=== PATIENT | male | born 1970 | race Caucasian/White ===

== ENCOUNTER 2016-07-09 14:33 | Observation (INO) | payer BC ==
[~2016-07-09] VITALS: Ht 175.3 cm; Wt 72.6 kg
[~2016-07-09 14:33] MED LIST: BUTA1CAP29 PO; ONDA4TAB10 SL
[2016-07-09 15:39] LABS: BASO % 1 % (0-3); EOS % 2 % (0-3); HEMOGLOBIN 15.7 g/dL (13.0-17.5); LYMPH # 0.6 x10^3/uL (1.0-4.8); LYMPH % 27 % (24-48); MEAN CORPUSCULAR HEMOGLOBIN 31 pg (25-35); MEAN CORPUSCULAR HGB CONC 34 g/dL (31-37); MEAN CORPUSCULAR VOLUME 90 fL (79-100); MONO % 8 % (0-9); NEUT % 62 % (31-73); PLATELET COUNT 56 x10^3/uL (140-400); RED CELL DISTRIBUTION WIDTH 14.3 % (11.5-14.5); WHITE BLOOD COUNT 2.3 x10^3/uL (4.0-11.0)
[2016-07-09] MEDS ORDERED: LORAZEPAM 2 MG/ML VIAL IV ONE (15:45)
--- NOTE | 2016-07-09 15:50 | EKG ---
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
[2016-07-09 15:52] LABS: INR 1.1 (0.8-1.1); PROTHROMBIN TIME PATIENT 13.7 SEC (11.7-14.0)
--- NOTE | 2016-07-09 15:52 | RAD ---
Indication: CVA and right-sided pain. Time of exam 1543 hours. No prior studies are available for comparison. FINDINGS: The heart size is normal. The lungs are clear. No pleural effusion or pneumothorax is identified. The pulmonary vascularity is normal. IMPRESSION: No acute abnormality detected.
[2016-07-09 15:53] LABS: CALCIUM 9.4 mg/dL (8.5-10.1); CREATININE 0.8 mg/dL (0.7-1.3); GFR 103.6; POTASSIUM 4.2 mmol/L (3.5-5.1)
--- NOTE | 2016-07-09 16:16 | PHYS DOC ---
Past Medical History Past Medical History: Diabetes-Type II, Other Additional Past Medical Histor: SEASONAL ALLERGIES Past Surgical History: Appendectomy, Other Additional Past Surgical Histo: knee arthroscopy Alcohol Use: Heavy Drug Use: None Adult General Chief Complaint Chief Complaint: WEAKNESS/GENERALIZED HPI HPI Patient is a 46 year old male with history of type 2 diabetes on oral medications presents complaining of acute onset tingling/paresthesias with diminished sensation in the right arm and leg as well as perceived right arm and leg weakness. The symptoms started "sometime mid morning, probably after 9 AM". He cannot pinpoint the exact onset. No prior history of strokes. He does not smoke, drinks alcohol only occasionally. He denies illicit drug use. He denies chest pain, palpitations, dizziness/lightheadedness, visual disturbances, speech disturbance, nausea, vomiting, abdominal pain, diarrhea, bloody stools, urinary symptoms. He has no other acute complaints. Review of Systems Review of Systems Constitutional: Denies fever or chills Eyes: Denies change in visual acuity, redness, or eye pain HENT: Denies nasal congestion or sore throat Respiratory: Denies cough or shortness of breath Cardiovascular: Chest pain, palpitations, or lightheadedness/dizziness. GI: Denies abdominal pain, nausea, vomiting, bloody stools or diarrhea : Denies dysuria or hematuria Musculoskeletal: Denies back pain or joint pain Integument: Denies rash or skin lesions Neurologic: Denies headache. Reports motor weakness in the right arm and leg. Reports diminished sensation with paresthesias in the right arm and leg. Denies any speech difficulties or visual disturbances. Current Medications Current Medications Current Medications Medications (Trade) Dose Ordered Sig/Digna Start Time Stop Time Status Last Admin Dose Admin Al Hydroxide/Mg Hydroxide (Mylanta Plus Xs) 30 ml PRN Q3HRS PRN 07/09/16 17:45 UNV Bisacodyl (Dulcolax Supp) 10 mg PRN DAILY PRN 07/09/16 17:45 UNV Calcium Carbonate/ Glycine (Tums) 500 mg PRN Q3HRS PRN 07/09/16 17:45 UNV Dextrose 12.5 gm PRN Q15MIN PRN 07/09/16 17:45 UNV Gabapentin (Neurontin) 100 mg TID 07/09/16 21:00 UNV Insulin Aspart (Novolog) 0-9 UNITS TIDWMEALS 07/10/16 08:00 UNV Insulin Human Regular (Novolin R Vial) 10 unit 1X ONCE 07/09/16 16:30 07/09/16 16:31 DC 07/09/16 16:32 10 UNIT Lactulose 20 gm PRN Q12HR PRN 07/09/16 17:45 UNV Lorazepam (Ativan) 1 mg 1X ONCE 07/09/16 15:45 07/09/16 15:46 DC 07/09/16 16:00 1 MG Magnesium Hydroxide (Milk Of Magnesia) 2,400 mg PRN Q12HR PRN 07/09/16 17:45 UNV Morphine Sulfate 1 mg PRN Q1HR PRN 07/09/16 17:45 UNV Non-Formulary Medication 1 each Q6HRS PRN 07/09/16 17:45 UNV Ondansetron HCl (Zofran Odt) 4 mg Q8HRS PRN 07/09/16 17:45 UNV Ondansetron HCl (Zofran) 4 mg PRN Q6HRS PRN 07/09/16 17:45 UNV Oxycodone HCl (Roxicodone) 5 mg PRN Q3HRS PRN 07/09/16 17:45 UNV Prochlorperazine Edisylate (Compazine) 10 mg PRN Q6HRS PRN 07/09/16 17:45 UNV Zolpidem Tartrate (Ambien) 5 mg PRN QHS PRN 07/09/16 17:45 UNV Allergies Allergies Allergies Coded Allergies Type Severity Reaction Last Updated Verified prochlorperazine Allergy Intermediate 01/24/16 Yes Physical Exam Physical Exam Constitutional: Well developed, well nourished, no acute distress, non-toxic appearance. HENT: Normocephalic, atraumatic, bilateral external ears normal, oropharynx moist, no oral exudates, nose normal. Eyes: PERRLA, EOMI, conjunctiva normal, no discharge. Neck: Normal range of motion, no tenderness, supple, no stridor. Cardiovascular:Heart rate regular rhythm, no murmur Lungs & Thorax: Bilateral breath sounds clear to auscultation Abdomen: Bowel sounds normal, soft, no tenderness, no masses, no pulsatile masses. Skin: Warm, dry, no erythema, no rash. Back: No tenderness, no CVA tenderness. Extremities: No tenderness, no cyanosis, no clubbing, ROM intact, no edema. Neurologic: Alert and oriented X 3, normal motor function. Only diminished sensation to light touch in the right lower leg. Normal sensation in bilateral upper extremities. Normal sensation left lower extremity. No limb ataxia. No facial droop or speech disturbances. Psychologic: Affect normal, judgement normal, mood normal. Current Patient Data Vital Signs Vital Signs Date Time Temp Pulse Resp B/P Pulse Ox O2 Delivery O2 Flow Rate FiO2 07/09/16 14:52 98.3 83 17 163/100 97 Room Air 98.3 Lab Values Laboratory Tests Test 07/09/16 14:42 07/09/16 16:10 White Blood Count 2.3x10^3/uL (4.0-11.0) L Red Blood Count 5.10x10^6/uL (4.30-5.70) Hemoglobin 15.7g/dL (13.0-17.5) Hematocrit 46.0% (39.0-53.0) Mean Corpuscular Volume 90fL (79-100) Mean Corpuscular Hemoglobin 31pg (25-35) Mean Corpuscular Hemoglobin Concent 34g/dL (31-37) Red Cell Distribution Width 14.3% (11.5-14.5) Platelet Count 56x10^3/uL (140-400) L Neutrophils (%) (Auto) 62% (31-73) Lymphocytes (%) (Auto) 27% (24-48) Monocytes (%) (Auto) 8% (0-9) Eosinophils (%) (Auto) 2% (0-3) Basophils (%) (Auto) 1% (0-3) Neutrophils # (Auto) 1.4x10^3uL (1.8-7.7) L Lymphocytes # (Auto) 0.6x10^3/uL (1.0-4.8) L Monocytes # (Auto) 0.2x10^3/uL (0.0-1.1) Eosinophils # (Auto) 0.0x10^3/uL (0.0-0.7) Basophils # (Auto) 0.0x10^3/uL (0.0-0.2) Prothrombin Time 13.7SEC (11.7-14.0) Prothrombin Time INR 1.1 (0.8-1.1) Sodium Level 133mmol/L (136-145) L Potassium Level 4.2mmol/L (3.5-5.1) Chloride Level 97mmol/L (98-107) L Carbon Dioxide Level 27mmol/L (21-32) Anion Gap 9 (6-14) Blood Urea Nitrogen 8mg/dL (8-26) Creatinine 0.8mg/dL (0.7-1.3) Estimated GFR (Cockcroft-Gault) 103.6 Glucose Level 414mg/dL (70-99) H Calcium Level 9.4mg/dL (8.5-10.1) Troponin I Quantitative < 0.017ng/mL (0.000-0.055) Ethyl Alcohol Level < 10mg/dL (0-10) Urine Opiates Screen Neg (NEG) Urine Methadone Screen Neg (NEG) Urine Barbiturates Neg (NEG) Urine Phencyclidine Screen Neg (NEG) Urine Amphetamine/Methamphetamine Neg (NEG) Urine Benzodiazepines Screen Neg (NEG) Urine Cocaine Screen Neg (NEG) Urine Cannabinoids Screen Neg (NEG) Urine Ethyl Alcohol Neg (NEG) Laboratory Tests 07/09/16 14:42 Laboratory Tests 07/09/16 14:42 EKG EKG EKG: Sinus rhythm. Rate 77 bpm. Left axis deviation. No acute ST segment elevation or depression. No obvious acute ST segment changes. EKG interpreted by me. Radiology/Procedures Radiology/Procedures PATIENT: ANYI BEST ACCOUNT: [id number] : 1970 LOCATION: ER AGE: 46 SEX: M EXAM STATUS: PRE ER ORD. PHYSICIAN: YVETTE LAGOS MD REASON: stroke symptoms PROCEDURE: CHEST AP ONLY Indication: CVA and right-sided pain. Time of exam 1543 hours. No prior studies are available for comparison. FINDINGS: The heart size is normal. The lungs are clear. No pleural effusion or pneumothorax is identified. The pulmonary vascularity is normal. IMPRESSION: No acute abnormality detected. DICTATED and SIGNED BY: TALI DAVIS MD DATE: 07/09/16 0467 CC: NON,STAFF; YVETTE LAGOS MD ~ PATIENT: ANYI BEST ACCOUNT: [id number] : 1970 LOCATION: ER AGE: 46 SEX: M EXAM STATUS: PRE ER ORD. PHYSICIAN: YVETTE LAGOS MD REASON: motor weakness, numbness PROCEDURE: HEAD WO CONTRAST CT of the head without contrast, 07/09/2016: History: Weakness and numbness Comparison is made to a study from 01/24/2016. The ventricles are within normal limits in size. There is no shift of the midline structures. There is no evidence of acute intracranial hemorrhage or mass effect. The cerebellum is asymmetric as previously noted. 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 An old left cerebellar infarct is also a possibility. The findings are unchanged. IMPRESSION: 1. Chronic cerebellar asymmetry. 2. No acute intracranial abnormality is detected. DICTATED and SIGNED BY: ABRAHAM BAPTISTE MD DATE: 07/09/16 1618 CC: NON,STAFF; YVETTE LAGOS MD ~ Course & Med Decision Making Course & Med Decision Making Pertinent Labs and Imaging studies reviewed. (See chart for details) Other than some mild diminished sensation in the right lower leg, I cannot appreciate any motor deficits or sensory deficits in this patient. He reports feeling in his right arm and leg are weaker than the left, however. NIH stroke scale is 1. CT head is negative, labs are unremarkable, EKG is nonischemic and unremarkable. Ativan was given for anxiety. Sugars are elevated, so 10 units of IV regular insulin were given. Patient is 46 years old and appears to have uncontrolled diabetes and is reporting strokelike symptoms. I decided to admit this patient for observation. I discussed this case with Dr. Limon who agreed to admit the patient for observation and further management. Dragon Disclaimer Dragon Disclaimer This electronic medical record was generated, in whole or in part, using a voice recognition dictation system. Departure Departure Impression: Primary Impression: Weakness of extremity Additional Impression: Paresthesias Disposition: 09 ADMITTED INPATIENT Admitting Physician: Yessenia Limon Condition: STABLE Referrals: NON,STAFF (PCP) Problem Qualifiers YVETTE LAGOS MD Jul 09, 2016 15:40
--- NOTE | 2016-07-09 16:23 | RAD ---
CT of the head without contrast, 07/09/2016: History: Weakness and numbness Comparison is made to a study from 01/24/2016. The ventricles are within normal limits in size. There is no shift of the midline structures. There is no evidence of acute intracranial hemorrhage or mass effect. The cerebellum is asymmetric as previously noted. 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 An old left cerebellar infarct is also a possibility. The findings are unchanged. IMPRESSION: 1. Chronic cerebellar asymmetry. 2. No acute intracranial abnormality is detected.
[2016-07-09] MEDS ORDERED: INSULIN REGULAR 100 UNIT/ML 10ML VIAL. IV ONE (16:30)
[2016-07-09 17:03] LABS: BARBITURATES NEG (NEG); BENZODIAZEPINES NEG (NEG); CANNABINOIDS NEG (NEG); COCAINE NEG (NEG); METHADONE NEG (NEG); OPIATES NEG (NEG); PHENCYCLIDINE NEG (NEG)
[2016-07-09 17:05] LABS: ETHANOL, URINE NEG (NEG)
[2016-07-09] MEDS ORDERED: PROCHLORPERAZINE 10 MG/2 ML VIAL. IV PRN (17:45)
[2016-07-09] MEDS ORDERED: CALCIUM CARBONATE 500 MG TAB.CHEW PO PRN (17:45)
[2016-07-09] MEDS ORDERED: OXYCODONE IR 5 MG TABLET. PO PRN (17:45)
[2016-07-09] MEDS ORDERED: ONDANSETRON PF 4 MG/2 ML VIAL. IV PRN (17:45)
[2016-07-09] MEDS ORDERED: ZOLPIDEM 5 MG TABLET. PO PRN (17:45)
[2016-07-09] MEDS ORDERED: ONDANSETRON ODT 4 MG TAB.RAPDIS PO PRN (17:45)
[2016-07-09] MEDS ORDERED: MAGNESIUM HYDROXIDE 2,400 MG/30 ML ORAL.SUSP. PO PRN (17:45)
[2016-07-09] MEDS ORDERED: LACTULOSE 20 GM/30 ML SOLUTION. PO PRN (17:45)
[2016-07-09] MEDS ORDERED: DEXTROSE 50% 25 GM / 50ML DISP.SYRIN. IV PRN (17:45)
[2016-07-09] MEDS ORDERED: MORPHINE SULFATE 2 MG/ML DISP.SYRIN. IV PRN (17:45)
[2016-07-09] MEDS ORDERED: BISACODYL 10 MG SUPP.RECT PR PRN (17:45)
[2016-07-09] MEDS ORDERED: MAG HYDROX/ALUMINUM HYDROX/SMC 30 ML ORAL.SUSP PO PRN (17:45)
--- NOTE | 2016-07-09 17:54 | PDOC1 ---
History and Physical Date of Admission Date of Admission DATE: 07/09/16 TIME: 17:47 Identification/Chief Complaint Chief Complaint R arm weakness and numbness Source Source: Chart review, Patient History of Present Illness History of Present Illness 46 y.o male, rather odd/bizarre personality/behavior, comes in bec of above sx, this AM 9 AM, claims sensation deficit R UE and R UE weakness, NO other FNDs, LAbs ok,. PE ok, maybe subjective dec in strength UE,. BUt BS over 400s, at ER, on OHA at home but cant tell me names, doubt compliance. Admitted oBS for mRI brain and better BS control,. Unknown hgba1c, HArd to keep pt focused on acute issues, PCP is unassigned, Rest of HPI limited sec to the above (personality and refocusing issues), Past Medical History Endocrine: Diabetes Past Surgical History Past Surgical History: Appendectomy Family History Family History: No Significant Social History Smoke: No ALCOHOL: occassional Drugs: None Current Problem List Problem List Problems Medical Problems: (1) Paresthesias Status: Acute (2) Right arm numbness Status: Acute Problems: Current Medications Current Medications Current Medications Lorazepam (Ativan) 1 mg 1X ONCE IV Last administered on 07/09/16 16:00; Start 07/09/16 at 15:45; Stop 07/09/16 at 15:46; Status DC Insulin Human Regular (Novolin R Vial) 10 unit 1X ONCE IV Last administered on 07/09/16 16:32; Start 07/09/16 at 16:30; Stop 07/09/16 at 16:31; Status DC Active Scripts Active Zofran Odt (Ondansetron) 4 Mg Tab.rapdis 1 Tab SL Q8HRS Fioricet 50-300-40 Mg Capsule (Butalb/Acetaminophen/Caffeine) 1 Each Capsule 1 Each PO Q6HRS PRN Allergies Allergies: Coded Allergies: prochlorperazine (Verified Allergy, Intermediate, 01/24/16) ROS General: No: Appetite, Chills, Fatigue, Malaise, Night Sweats, Other PSYCHOLOGICAL ROS: No: Anxiety, Behavioral Disorder, Concentration difficultie , Decreased libido, Depression, Disorientation, Hallucinations, Hostility, Irritablity, Memory difficulties, Mood Swings, Obsessive thoughts, Other, Physical abuse, Sexual abuse, Sleep disturbances, Suicidal ideation Eyes: No Blurry vision, No Decreased vision, No Double vision, No Dry eyes, No Excessive tearing, No Eye Pain, No Itchy Eyes, No Loss of vision, No Other, No Photophobia, No Scotomata, No Uses contacts, No Uses glasses HEENT: No: Epistaxis, Heacaches, Hearing change, Nasal congestion, Nasal discharge, Oral lesions, Other, Sinus pain, Sneezing, Snoring, Sore Throat, Tinnitus, Vertigo, Visual Changes, Vocal changes ALLERGY AND IMMUNOLOGY: No: Hives, Insect Bite Sensitivity, Itchy/Watery Eyes, Nasal Congestion, Other, Post Nasal Drip, Seasonal Allergies Hematological and Lymphatic: No: Bleeding Problems, Blood Clots, Blood Transfusions, Brusing, Night Sweats, Other, Pallor, Swollen Lymph Nodes ENDOCRINE: No: Breast Changes, Galactorrhea, Hair Pattern Changes, Hot Flashes , Malaise/lethargy, Mood Swings, Other, Palpitations, Polydipsia/polyuria, Skin Changes, Temperature Intolerance, Unexpected Weight Changes Breast: No New/Changing Breast Lumps, No Nipple changes, No Nipple discharge, No Other Respiratory: No: Cough, Hemoptysis, Orthopnea, Other, Pleuritic Pain, SOB with excertion, Shortness of breath, Sputum Changes, Stridor, Tachypnea, Wheezing Cardiovascular: No Chest Pain, No Edema, No Lt Headedness, No Orthopnea, No Other, No Palpitations, No Paroxysmal Noc. Dyspnea Gastrointestinal: No Abdominal Pain, No Constipation, No Diarrhea, No Hematochezia, No Melena, No Nausea, No Other, No Vomiting Genitourinary: No , No , No , No , No , No , No , No Discharge, No Dysuria, No Flank Pain, No Frequency, No Hematuria, No Incontinence, No Other, No Pain, No Retention, No Urgency Musculoskeletal: Yes Other (as per HPI) Neurological: No Behavorial Changes, No Bowel/Bladder ControlChng, No Confusion , No Dizziness, No Gait Disturbance, No Headaches, No Impaired Coord/balance, No Memory Loss, No Numbness/Tingling, No Other, No Seizures, No Speech Problems , No Tremors, No Visual Changes, No Weakness Skin: No Acne, No Dry Skin, No Eczema, No Hair Changes, No Lumps, No Mole Changes, No Mottling, No Nail Changes, No Other, No Pruritus, No Rash, No Skin Lesion Changes Physical Exam General: Alert, Oriented X3, Cooperative, No acute distress HEENT: Atraumatic, PERRLA, EOMI Lungs: Clear to auscultation, Normal air movement Heart: S1S2, RRR, no thrills, no rubs Cardiovascular: S1 Breasts: Normal Abdomen: Normal bowel sounds Male Genitals Exam: normal genitalia, normal prostate Extremities: No clubbing, No cyanosis, No edema, Normal pulses, No tenderness/ swelling Skin: No rashes, No breakdown, No significant lesion Neuro: Normal gait Psych/Mental Status: Mental status NL Vitals Vitals Vital Signs Date Time Temp Pulse Resp B/P Pulse Ox O2 Delivery O2 Flow Rate FiO2 07/09/16 14:52 98.3 83 17 163/100 97 Room Air 98.3 Labs Labs Laboratory Tests Test 07/09/16 14:42 07/09/16 16:10 White Blood Count 2.3x10^3/uL (4.0-11.0) Red Blood Count 5.10x10^6/uL (4.30-5.70) Hemoglobin 15.7g/dL (13.0-17.5) Hematocrit 46.0% (39.0-53.0) Mean Corpuscular Volume 90fL (79-100) Mean Corpuscular Hemoglobin 31pg (25-35) Mean Corpuscular Hemoglobin Concent 34g/dL (31-37) Red Cell Distribution Width 14.3% (11.5-14.5) Platelet Count 56x10^3/uL (140-400) Neutrophils (%) (Auto) 62% (31-73) Lymphocytes (%) (Auto) 27% (24-48) Monocytes (%) (Auto) 8% (0-9) Eosinophils (%) (Auto) 2% (0-3) Basophils (%) (Auto) 1% (0-3) Neutrophils # (Auto) 1.4x10^3uL (1.8-7.7) Lymphocytes # (Auto) 0.6x10^3/uL (1.0-4.8) Monocytes # (Auto) 0.2x10^3/uL (0.0-1.1) Eosinophils # (Auto) 0.0x10^3/uL (0.0-0.7) Basophils # (Auto) 0.0x10^3/uL (0.0-0.2) Prothrombin Time 13.7SEC (11.7-14.0) Prothromb Time International Ratio 1.1 (0.8-1.1) Sodium Level 133mmol/L (136-145) Potassium Level 4.2mmol/L (3.5-5.1) Chloride Level 97mmol/L (98-107) Carbon Dioxide Level 27mmol/L (21-32) Anion Gap 9 (6-14) Blood Urea Nitrogen 8mg/dL (8-26) Creatinine 0.8mg/dL (0.7-1.3) Estimated GFR (Cockcroft-Gault) 103.6 Glucose Level 414mg/dL (70-99) Calcium Level 9.4mg/dL (8.5-10.1) Troponin I Quantitative < 0.017ng/mL (0.000-0.055) Ethyl Alcohol Level < 10mg/dL (0-10) Urine Opiates Screen Neg (NEG) Urine Methadone Screen Neg (NEG) Urine Barbiturates Neg (NEG) Urine Phencyclidine Screen Neg (NEG) Urine Amphetamine/Methamphetamine Neg (NEG) Urine Benzodiazepines Screen Neg (NEG) Urine Cocaine Screen Neg (NEG) Urine Cannabinoids Screen Neg (NEG) Urine Ethyl Alcohol Neg (NEG) Laboratory Tests Test 07/09/16 14:42 07/09/16 16:10 White Blood Count 2.3x10^3/uL (4.0-11.0) Red Blood Count 5.10x10^6/uL (4.30-5.70) Hemoglobin 15.7g/dL (13.0-17.5) Hematocrit 46.0% (39.0-53.0) Mean Corpuscular Volume 90fL (79-100) Mean Corpuscular Hemoglobin 31pg (25-35) Mean Corpuscular Hemoglobin Concent 34g/dL (31-37) Red Cell Distribution Width 14.3% (11.5-14.5) Platelet Count 56x10^3/uL (140-400) Neutrophils (%) (Auto) 62% (31-73) Lymphocytes (%) (Auto) 27% (24-48) Monocytes (%) (Auto) 8% (0-9) Eosinophils (%) (Auto) 2% (0-3) Basophils (%) (Auto) 1% (0-3) Neutrophils # (Auto) 1.4x10^3uL (1.8-7.7) Lymphocytes # (Auto) 0.6x10^3/uL (1.0-4.8) Monocytes # (Auto) 0.2x10^3/uL (0.0-1.1) Eosinophils # (Auto) 0.0x10^3/uL (0.0-0.7) Basophils # (Auto) 0.0x10^3/uL (0.0-0.2) Prothrombin Time 13.7SEC (11.7-14.0) Prothromb Time International Ratio 1.1 (0.8-1.1) Sodium Level 133mmol/L (136-145) Potassium Level 4.2mmol/L (3.5-5.1) Chloride Level 97mmol/L (98-107) Carbon Dioxide Level 27mmol/L (21-32) Anion Gap 9 (6-14) Blood Urea Nitrogen 8mg/dL (8-26) Creatinine 0.8mg/dL (0.7-1.3) Estimated GFR (Cockcroft-Gault) 103.6 Glucose Level 414mg/dL (70-99) Calcium Level 9.4mg/dL (8.5-10.1) Troponin I Quantitative < 0.017ng/mL (0.000-0.055) Ethyl Alcohol Level < 10mg/dL (0-10) Urine Opiates Screen Neg (NEG) Urine Methadone Screen Neg (NEG) Urine Barbiturates Neg (NEG) Urine Phencyclidine Screen Neg (NEG) Urine Amphetamine/Methamphetamine Neg (NEG) Urine Benzodiazepines Screen Neg (NEG) Urine Cocaine Screen Neg (NEG) Urine Cannabinoids Screen Neg (NEG) Urine Ethyl Alcohol Neg (NEG) VTE Prophylaxis Ordered VTE Prophylaxis Devices: Yes VTE Pharmacological Prophylaxi: Yes Assessment/Plan Assessment/Plan 1. R UE weakness? and sensory complaints, initially complained of R LE issues too, HIGHLY DOUBT cva but still need to rule ou 2. 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 DM uncontrolled with possible neuropathy 4. Seasonal allergies I think if at all this maybe neuropathy in a diabteic for "couple yrs" that is uncontrolled as manifested by BS 400s at ER and inability to relay names of his OHA that he claims he takes, PLAn: OBS MRI brain HOLD off on any neuro consults Trial of gabapentin Check hgba1c SSI Resume home meds IF mRI neg, home junior with gabapentin rx Novolog x 1 now for the BS >400s Seen at ER Plan of care dw him BREEZY HALL MD Jul 09, 2016 17:54
[2016-07-09 19:45] VITALS: BP 149/101
--- NOTE | 2016-07-09 19:59 | RAD ---
PROCEDURE MRI of the brain without contrast 07/09/2016 HISTORY Right-sided weakness, numbness and tingling since 9 a.m. today. TECHNIQUE Unenhanced T1 weighted sagittal and axial, T2 weighted axial and coronal and FLAIR, gradient echo and diffusion weighted axial images of the brain were obtained. FINDINGS Comparison study is dated 07/09/2016. Atrophy of the left cerebellar hemisphere is noted. The ventricles are within normal limits in size and configuration. No acute parenchymal abnormality is seen. No extra-axial fluid collection is noted. There is no MRI evidence of acute ischemia/infarction. Mild mucosal thickening is seen involving the ethmoid air cells bilaterally and the left frontal sinus. Normal flow voids are seen within the major vascular structures surrounding the brain parenchyma. IMPRESSION No acute parenchymal abnormality is seen. Electronically signed by: Andrea Márquez MD (Jul 09, 2016 19:58:24)
[2016-07-09] MEDS ORDERED: BUTALB/APAP/CAFEIN 50/325/40MG TABLET. PO PRN (20:15)
[2016-07-09] MEDS: GABAPENTIN 100 MG CAPSULE. PO SCH (21:52)
[2016-07-09 23:00] VITALS: BP 155/103
[2016-07-10 03:00] VITALS: BP 119/82
[2016-07-10 07:10] VITALS: BP 107/70
[2016-07-10] MEDS ORDERED: SITA50TA PO (07:34)
[2016-07-10] MEDS: GABAPENTIN 100 MG CAPSULE. PO SCH ×2 (08:32→14:06)
[2016-07-10] MEDS: INSULIN ASPART 300 UNITS/3 ML INSULN.PEN SQ SCH ×3 (08:38→17:43)
[2016-07-10] MEDS ORDERED: INFLUENZA VAX SCREEN BY RX. MC ONE (09:00)
[2016-07-10] MEDS ORDERED: PNEUMOC CONJ VACC 23-VALENT 0.5 ML VIAL. VAX IM ONE (09:00)
[2016-07-10] MEDS ORDERED: PNEUMOCOCCAL VAX SCREEN BY RX. MC ONE (09:00)
[2016-07-10] MEDS ORDERED: FLU VACC QUAD 2016-17 (36MOS+)/PF 0.5 ML SYRINGE. VAX IM ONE (09:00)
--- NOTE | 2016-07-10 10:25 | PDOC ---
PROGRESS NOTES Chief Complaint Chief Complaint A/P 1. R UE AND LE numbness, possible diabetic nuropathy 2. Uncontrolled DM HBA1C >10 Plan neurology evaluation Gabapentin SSI resume home medications pt doesn't like to be on insulin, education provided, PT/OT History of Present Illness History of Present Illness NO WEAKNESS NO FEVER Vitals Vitals Vital Signs Date Time Temp Pulse Resp B/P Pulse Ox O2 Delivery O2 Flow Rate FiO2 07/10/16 07:10 97.7 62 17 107/70 96 Room Air 97.7 Physical Exam General: Alert, Oriented X3, Cooperative, No acute distress Heart: Normal S1, Normal S2 Lungs: Clear Abdomen: Normal bowel sounds Extremities: No clubbing, No cyanosis, No edema, Normal pulses, No tenderness/ swelling Skin: No rashes, No breakdown, No significant lesion Labs LABS Laboratory Tests Test 07/09/16 14:42 07/09/16 16:10 07/09/16 20:55 07/10/16 07:29 White Blood Count 2.3x10^3/uL (4.0-11.0) Red Blood Count 5.10x10^6/uL (4.30-5.70) Hemoglobin 15.7g/dL (13.0-17.5) Hematocrit 46.0% (39.0-53.0) Mean Corpuscular Volume 90fL (79-100) Mean Corpuscular Hemoglobin 31pg (25-35) Mean Corpuscular Hemoglobin Concent 34g/dL (31-37) Red Cell Distribution Width 14.3% (11.5-14.5) Platelet Count 56x10^3/uL (140-400) Neutrophils (%) (Auto) 62% (31-73) Lymphocytes (%) (Auto) 27% (24-48) Monocytes (%) (Auto) 8% (0-9) Eosinophils (%) (Auto) 2% (0-3) Basophils (%) (Auto) 1% (0-3) Neutrophils # (Auto) 1.4x10^3uL (1.8-7.7) Lymphocytes # (Auto) 0.6x10^3/uL (1.0-4.8) Monocytes # (Auto) 0.2x10^3/uL (0.0-1.1) Eosinophils # (Auto) 0.0x10^3/uL (0.0-0.7) Basophils # (Auto) 0.0x10^3/uL (0.0-0.2) Prothrombin Time 13.7SEC (11.7-14.0) Prothromb Time International Ratio 1.1 (0.8-1.1) Sodium Level 133mmol/L (136-145) Potassium Level 4.2mmol/L (3.5-5.1) Chloride Level 97mmol/L (98-107) Carbon Dioxide Level 27mmol/L (21-32) Anion Gap 9 (6-14) Blood Urea Nitrogen 8mg/dL (8-26) Creatinine 0.8mg/dL (0.7-1.3) Estimated GFR (Cockcroft-Gault) 103.6 Glucose Level 414mg/dL (70-99) Hemoglobin A1c 10.3% (4.8-5.6) Calcium Level 9.4mg/dL (8.5-10.1) Troponin I Quantitative < 0.017ng/mL (0.000-0.055) Ethyl Alcohol Level < 10mg/dL (0-10) Urine Opiates Screen Neg (NEG) Urine Methadone Screen Neg (NEG) Urine Barbiturates Neg (NEG) Urine Phencyclidine Screen Neg (NEG) Urine Amphetamine/Methamphetamine Neg (NEG) Urine Benzodiazepines Screen Neg (NEG) Urine Cocaine Screen Neg (NEG) Urine Cannabinoids Screen Neg (NEG) Urine Ethyl Alcohol Neg (NEG) Glucose (Fingerstick) 212mg/dL (70-99) 237mg/dL (70-99) Assessment and Plan Assessmemt and Plan Problems Medical Problems: (1) Paresthesias Status: Acute (2) Right arm numbness Status: Acute (3) Weakness of extremity Status: Acute Problems: Comment Review of Relevant I have reviewed the following items ana (where applicable) has been applied. Labs Laboratory Tests Test 07/09/16 14:42 07/09/16 16:10 07/09/16 20:55 07/10/16 07:29 White Blood Count 2.3x10^3/uL (4.0-11.0) Red Blood Count 5.10x10^6/uL (4.30-5.70) Hemoglobin 15.7g/dL (13.0-17.5) Hematocrit 46.0% (39.0-53.0) Mean Corpuscular Volume 90fL (79-100) Mean Corpuscular Hemoglobin 31pg (25-35) Mean Corpuscular Hemoglobin Concent 34g/dL (31-37) Red Cell Distribution Width 14.3% (11.5-14.5) Platelet Count 56x10^3/uL (140-400) Neutrophils (%) (Auto) 62% (31-73) Lymphocytes (%) (Auto) 27% (24-48) Monocytes (%) (Auto) 8% (0-9) Eosinophils (%) (Auto) 2% (0-3) Basophils (%) (Auto) 1% (0-3) Neutrophils # (Auto) 1.4x10^3uL (1.8-7.7) Lymphocytes # (Auto) 0.6x10^3/uL (1.0-4.8) Monocytes # (Auto) 0.2x10^3/uL (0.0-1.1) Eosinophils # (Auto) 0.0x10^3/uL (0.0-0.7) Basophils # (Auto) 0.0x10^3/uL (0.0-0.2) Prothrombin Time 13.7SEC (11.7-14.0) Prothromb Time International Ratio 1.1 (0.8-1.1) Sodium Level 133mmol/L (136-145) Potassium Level 4.2mmol/L (3.5-5.1) Chloride Level 97mmol/L (98-107) Carbon Dioxide Level 27mmol/L (21-32) Anion Gap 9 (6-14) Blood Urea Nitrogen 8mg/dL (8-26) Creatinine 0.8mg/dL (0.7-1.3) Estimated GFR (Cockcroft-Gault) 103.6 Glucose Level 414mg/dL (70-99) Hemoglobin A1c 10.3% (4.8-5.6) Calcium Level 9.4mg/dL (8.5-10.1) Troponin I Quantitative < 0.017ng/mL (0.000-0.055) Ethyl Alcohol Level < 10mg/dL (0-10) Urine Opiates Screen Neg (NEG) Urine Methadone Screen Neg (NEG) Urine Barbiturates Neg (NEG) Urine Phencyclidine Screen Neg (NEG) Urine Amphetamine/Methamphetamine Neg (NEG) Urine Benzodiazepines Screen Neg (NEG) Urine Cocaine Screen Neg (NEG) Urine Cannabinoids Screen Neg (NEG) Urine Ethyl Alcohol Neg (NEG) Glucose (Fingerstick) 212mg/dL (70-99) 237mg/dL (70-99) Laboratory Tests Test 07/09/16 14:42 07/09/16 16:10 07/09/16 20:55 07/10/16 07:29 White Blood Count 2.3x10^3/uL (4.0-11.0) Red Blood Count 5.10x10^6/uL (4.30-5.70) Hemoglobin 15.7g/dL (13.0-17.5) Hematocrit 46.0% (39.0-53.0) Mean Corpuscular Volume 90fL (79-100) Mean Corpuscular Hemoglobin 31pg (25-35) Mean Corpuscular Hemoglobin Concent 34g/dL (31-37) Red Cell Distribution Width 14.3% (11.5-14.5) Platelet Count 56x10^3/uL (140-400) Neutrophils (%) (Auto) 62% (31-73) Lymphocytes (%) (Auto) 27% (24-48) Monocytes (%) (Auto) 8% (0-9) Eosinophils (%) (Auto) 2% (0-3) Basophils (%) (Auto) 1% (0-3) Neutrophils # (Auto) 1.4x10^3uL (1.8-7.7) Lymphocytes # (Auto) 0.6x10^3/uL (1.0-4.8) Monocytes # (Auto) 0.2x10^3/uL (0.0-1.1) Eosinophils # (Auto) 0.0x10^3/uL (0.0-0.7) Basophils # (Auto) 0.0x10^3/uL (0.0-0.2) Prothrombin Time 13.7SEC (11.7-14.0) Prothromb Time International Ratio 1.1 (0.8-1.1) Sodium Level 133mmol/L (136-145) Potassium Level 4.2mmol/L (3.5-5.1) Chloride Level 97mmol/L (98-107) Carbon Dioxide Level 27mmol/L (21-32) Anion Gap 9 (6-14) Blood Urea Nitrogen 8mg/dL (8-26) Creatinine 0.8mg/dL (0.7-1.3) Estimated GFR (Cockcroft-Gault) 103.6 Glucose Level 414mg/dL (70-99) Hemoglobin A1c 10.3% (4.8-5.6) Calcium Level 9.4mg/dL (8.5-10.1) Troponin I Quantitative < 0.017ng/mL (0.000-0.055) Ethyl Alcohol Level < 10mg/dL (0-10) Urine Opiates Screen Neg (NEG) Urine Methadone Screen Neg (NEG) Urine Barbiturates Neg (NEG) Urine Phencyclidine Screen Neg (NEG) Urine Amphetamine/Methamphetamine Neg (NEG) Urine Benzodiazepines Screen Neg (NEG) Urine Cocaine Screen Neg (NEG) Urine Cannabinoids Screen Neg (NEG) Urine Ethyl Alcohol Neg (NEG) Glucose (Fingerstick) 212mg/dL (70-99) 237mg/dL (70-99) Medications Current Medications Lorazepam (Ativan) 1 mg 1X ONCE IV Last administered on 07/09/16 16:00; Start 07/09/16 at 15:45; Stop 07/09/16 at 15:46; Status DC Insulin Human Regular (Novolin R Vial) 10 unit 1X ONCE IV Last administered on 07/09/16 16:32; Start 07/09/16 at 16:30; Stop 07/09/16 at 16:31; Status DC Ondansetron HCl (Zofran Odt) 4 mg PRN Q8HRS PRN PO NAUSEA/VOMITING; Start 07/09 at 17:45 Acetaminophen/ Butalbital/ Caffeine (Fioricet) 1 tab PRN Q6HRS PRN PO MIGRAINE HEADACHE; Start 07/09/16 at 20:15 Ondansetron HCl (Zofran) 4 mg PRN Q6HRS PRN IV NAUSEA/VOMITING; Start 07/09/16 at 17:45 Prochlorperazine Edisylate (Compazine) 10 mg PRN Q6HRS PRN IV NAUSEA/VOMITING; Start 07/09/16 at 17:45; Stop 07/09/16 at 19:12; Status DC Al Hydroxide/Mg Hydroxide (Mylanta Plus Xs) 30 ml PRN Q3HRS PRN PO HEARTBURN / GAS; Start 07/09/16 at 17:45 Calcium Carbonate/ Glycine (Tums) 500 mg PRN Q3HRS PRN PO UPSET STOMACH; Start 07/09/16 at 17:45 Zolpidem Tartrate (Ambien) 5 mg PRN QHS PRN PO INSOMNIA, MAY REPEAT IN 1HR; Start 07/09/16 at 17:45 Oxycodone HCl (Roxicodone) 5 mg PRN Q3HRS PRN PO BREAKTHROUGH PAIN; Start 07/09 at 17:45 Morphine Sulfate 1 mg PRN Q1HR PRN IV PAIN; Start 07/09/16 at 17:45 Magnesium Hydroxide (Milk Of Magnesia) 2,400 mg PRN Q12HR PRN PO CONSTIPATION; Start 07/09/16 at 17:45 Lactulose 20 gm PRN Q12HR PRN PO CONSTIPATION; Start 07/09/16 at 17:45 Bisacodyl (Dulcolax Supp) 10 mg PRN DAILY PRN [place] CONSTIPATION; Start 07/09/16 at 17:45 Gabapentin (Neurontin) 100 mg TID PO Last administered on 07/10/16 08:32; Start 07/09/16 at 21:00 Insulin Aspart (Novolog) 0-9 UNITS TIDWMEALS SQ Last administered on 07/10/16 08:38; Start 07/10/16 at 08:00 Dextrose 12.5 gm PRN Q15MIN PRN IV SEE COMMENTS; Start 07/09/16 at 17:45 Info (Do NOT chart on this placeholder) 1 each 1X ONCE MC ; Start 07/10/16 at 09:00; Stop 07/10/16 at 09:01; Status UNV Pneumococcal Polyvalent Vaccine (Do NOT chart on this placeholder) 1 each 1X ONCE MC ; Start 07/10/16 at 09:00; Stop 07/10/16 at 09:01; Status UNV Influenza Virus Vaccine Quadrival (Fluarix Quad [id number] Syringe) 0.5 ml ONCE ONCE VAX IM Last administered on 07/10/16 08:37; Start 07/10/16 at 09:00; Stop 07/10/16 at 09:01; Status DC Pneumococcal Polyvalent Vaccine (Pneumovax 23) 0.5 ml ONCE ONCE VAX IM Last administered on 07/10/16t 08:38; Start 07/10/16 at 09:00; Stop 07/10/16 at 09:01 ; Status DC Active Scripts Active Zofran Odt (Ondansetron) 4 Mg Tab.rapdis 1 Tab SL Q8HRS Fioricet 50-300-40 Mg Capsule (Butalb/Acetaminophen/Caffeine) 1 Each Capsule 1 Each PO Q6HRS PRN Reported Januvia (Sitagliptin Phosphate) 50 Mg Tablet 1 Tab PO DAILY Vitals/I & O Vital Sign - Last 24 Hours 07/09/16 07/09/16 07/09/16 07/09/16 14:52 15:15 16:45 17:45 Temp 98.3 98.3 Pulse 83 82 90 96 Resp 17 B/P 163/100 146/97 158/100 142/99 Pulse Ox 97 97 96 96 O2 Delivery Room Air 07/09/16 07/09/16 07/09/16 07/10/16 18:15 19:45 23:00 01:57 Temp 97.5 97.7 97.5 97.7 Pulse 92 79 80 Resp 16 16 B/P 150/98 149/101 155/103 Pulse Ox 97 98 95 O2 Delivery Room Air Room Air Room Air 07/10/16 07/10/16 03:00 07:10 Temp 97.5 97.7 97.5 97.7 Pulse 65 62 Resp 16 17 B/P 119/82 107/70 Pulse Ox 93 96 O2 Delivery Room Air Room Air Intake and Output 07/09/16 07/09/16 07/10/16 15:00 23:00 07:00 Intake Total 150 ml 400 ml Balance 150 ml 400 ml ALESSANDRO RUFF MD Jul 10, 2016 10:25
[2016-07-10 11:00] VITALS: BP 130/87
[2016-07-10 14:55] VITALS: BP 142/99
--- NOTE | 2016-07-10 17:41 | PDOC2 ---
CONSULT Date of Consult Date of Consult DATE: 07/10/16 TIME: 17:38 History of Present Illness Reason for Visit: This patient is 46-year-old male who presented history of personality disorder presents with complaint of sensory deficit on right upper and lower extremity with complaint of tingling and numbness. He denies any difficulty speaking denies any weakness. No headache weakness in his legs noted complains of tingling numbness in the legs. He reports he has some chronic neck pain. Denies any acute neck pain currently. He had MRI brain done with no acute intracranial process. History of chronic neck pains We will check MRI of the C-spine to rule out any acute process History of diabetes with neuropathy. Continue gabapentin. Check HbA1c Check vitamin B12 TSH Continue medical management Past Medical History Endocrine: Diabetes Past Surgical History Past Surgical History: Appendectomy Family History Family History: No Significant Social History No ALCOHOL: occassional Drugs: None Current Problem List Problem List Problems Medical Problems: (1) Paresthesias Status: Acute (2) Right arm numbness Status: Acute (3) Weakness of extremity Status: Acute Current Medications Current Medications Current Medications Lorazepam (Ativan) 1 mg 1X ONCE IV Last administered on 07/09/16 16:00; Start 07/09/16 at 15:45; Stop 07/09/16 at 15:46; Status DC Insulin Human Regular (Novolin R Vial) 10 unit 1X ONCE IV Last administered on 07/09/16 16:32; Start 07/09/16 at 16:30; Stop 07/09/16 at 16:31; Status DC Ondansetron HCl (Zofran Odt) 4 mg PRN Q8HRS PRN PO NAUSEA/VOMITING; Start 07/09 at 17:45 Acetaminophen/ Butalbital/ Caffeine (Fioricet) 1 tab PRN Q6HRS PRN PO MIGRAINE HEADACHE; Start 07/09/16 at 20:15 Ondansetron HCl (Zofran) 4 mg PRN Q6HRS PRN IV NAUSEA/VOMITING; Start 07/09/16 at 17:45 Prochlorperazine Edisylate (Compazine) 10 mg PRN Q6HRS PRN IV NAUSEA/VOMITING; Start 07/09/16 at 17:45; Stop 07/09/16 at 19:12; Status DC Al Hydroxide/Mg Hydroxide (Mylanta Plus Xs) 30 ml PRN Q3HRS PRN PO HEARTBURN / GAS; Start 07/09/16 at 17:45 Calcium Carbonate/ Glycine (Tums) 500 mg PRN Q3HRS PRN PO UPSET STOMACH; Start 07/09/16 at 17:45 Zolpidem Tartrate (Ambien) 5 mg PRN QHS PRN PO INSOMNIA, MAY REPEAT IN 1HR; Start 07/09/16 at 17:45 Oxycodone HCl (Roxicodone) 5 mg PRN Q3HRS PRN PO BREAKTHROUGH PAIN; Start 07/09 at 17:45 Morphine Sulfate 1 mg PRN Q1HR PRN IV PAIN; Start 07/09/16 at 17:45 Magnesium Hydroxide (Milk Of Magnesia) 2,400 mg PRN Q12HR PRN PO CONSTIPATION; Start 07/09/16 at 17:45 Lactulose 20 gm PRN Q12HR PRN PO CONSTIPATION; Start 07/09/16 at 17:45 Bisacodyl (Dulcolax Supp) 10 mg PRN DAILY PRN [place] CONSTIPATION; Start 07/09/16 at 17:45 Gabapentin (Neurontin) 100 mg TID PO Last administered on 07/10/16 14:06; Start 07/09/16 at 21:00 Insulin Aspart (Novolog) 0-9 UNITS TIDWMEALS SQ Last administered on 07/10/16 12:24; Start 07/10/16 at 08:00 Dextrose 12.5 gm PRN Q15MIN PRN IV SEE COMMENTS; Start 07/09/16 at 17:45 Info (Do NOT chart on this placeholder) 1 each 1X ONCE MC ; Start 07/10/16 at 09:00; Stop 07/10/16 at 09:01; Status UNV Pneumococcal Polyvalent Vaccine (Do NOT chart on this placeholder) 1 each 1X ONCE MC ; Start 07/10/16 at 09:00; Stop 07/10/16 at 09:01; Status UNV Influenza Virus Vaccine Quadrival (Fluarix Quad [id number] Syringe) 0.5 ml ONCE ONCE VAX IM Last administered on 07/10/16 08:37; Start 07/10/16 at 09:00; Stop 07/10/16 at 09:01; Status DC Pneumococcal Polyvalent Vaccine (Pneumovax 23) 0.5 ml ONCE ONCE VAX IM Last administered on 07/10/16t 08:38; Start 07/10/16 at 09:00; Stop 07/10/16 at 09:01 ; Status DC Aspirin (Children'S Aspirin) 81 mg DAILYWBKFT PO ; Start 07/11/16 at 08:00 Active Scripts Active Zofran Odt (Ondansetron) 4 Mg Tab.rapdis 1 Tab SL Q8HRS Fioricet 50-300-40 Mg Capsule (Butalb/Acetaminophen/Caffeine) 1 Each Capsule 1 Each PO Q6HRS PRN Reported Januvia (Sitagliptin Phosphate) 50 Mg Tablet 1 Tab PO DAILY Allergies Allergies: Coded Allergies: prochlorperazine (Verified Allergy, Intermediate, 01/24/16) Physical Exam Physical Exam REVIEW OF SYSTEMS: Constitutional: No malnutrition, weight loss, cachexia. Head: No traumatic brain or head injury. Skin: No edema, or rash. Ear: No infection, tinnitus. Eyes: No vision loss or color blindness. Nose: No bleeding or purulent discharges. Hearing: No hearing decrease. Neck: No injury. Cardiac: HTN, HLD. Pulmonary: No COPD. GI: No GI ulcer, GI bleeding. Urinary/genital: No dysuria, hematuria, incontinence, urinary retention Endocrinologic: Diabetes Mellitus Skeletomuscular: No muscular atrophy, deformity Neurological: see HP. Psychiatric: Denies drug use/abuse. Otherwise, not [id number] review of systems. PHYSICAL EXAMINATION: General appearance is in acute distress. HEENT: Normocephalic and nontraumatic. Eyes, nose, ears, and throat are unremarkable. Neck is supple. No lymphadenopathy. No crepitus. Cardiovascular: S1, S2, regular rate and rhythm. Pulmonary: Clear to auscultation bilaterally. Abdomen: Bowel sounds are positive. Abdomen is soft, nontender, and nondistended. Extremities: No rash, lesions, or edema. No restriction of range of motion NEUROLOGICAL EXAMINATION: Alert Oriented to time, place and person. PERRL. EOMI. CN: no focal findings. Muscle tone: within normal. Muscle strength: 5 DTR: 2 Plantar reflex: Flexor response bilaterally Gait: not examined in bed. Sensory exam: no abnormal findings. No obvious cerebellar signs elicited. Vitals VITALS Vital Signs Date Time Temp Pulse Resp B/P Pulse Ox O2 Delivery O2 Flow Rate FiO2 07/10/16 14:55 97.5 74 17 142/99 96 Room Air 97.5 Labs Labs Laboratory Tests Test 07/09/16 14:42 07/09/16 16:10 07/09/16 20:55 07/10/16 07:29 White Blood Count 2.3x10^3/uL (4.0-11.0) Red Blood Count 5.10x10^6/uL (4.30-5.70) Hemoglobin 15.7g/dL (13.0-17.5) Hematocrit 46.0% (39.0-53.0) Mean Corpuscular Volume 90fL (79-100) Mean Corpuscular Hemoglobin 31pg (25-35) Mean Corpuscular Hemoglobin Concent 34g/dL (31-37) Red Cell Distribution Width 14.3% (11.5-14.5) Platelet Count 56x10^3/uL (140-400) Neutrophils (%) (Auto) 62% (31-73) Lymphocytes (%) (Auto) 27% (24-48) Monocytes (%) (Auto) 8% (0-9) Eosinophils (%) (Auto) 2% (0-3) Basophils (%) (Auto) 1% (0-3) Neutrophils # (Auto) 1.4x10^3uL (1.8-7.7) Lymphocytes # (Auto) 0.6x10^3/uL (1.0-4.8) Monocytes # (Auto) 0.2x10^3/uL (0.0-1.1) Eosinophils # (Auto) 0.0x10^3/uL (0.0-0.7) Basophils # (Auto) 0.0x10^3/uL (0.0-0.2) Prothrombin Time 13.7SEC (11.7-14.0) Prothromb Time International Ratio 1.1 (0.8-1.1) Sodium Level 133mmol/L (136-145) Potassium Level 4.2mmol/L (3.5-5.1) Chloride Level 97mmol/L (98-107) Carbon Dioxide Level 27mmol/L (21-32) Anion Gap 9 (6-14) Blood Urea Nitrogen 8mg/dL (8-26) Creatinine 0.8mg/dL (0.7-1.3) Estimated GFR (Cockcroft-Gault) 103.6 Glucose Level 414mg/dL (70-99) Hemoglobin A1c 10.3% (4.8-5.6) Calcium Level 9.4mg/dL (8.5-10.1) Troponin I Quantitative < 0.017ng/mL (0.000-0.055) Ethyl Alcohol Level < 10mg/dL (0-10) Urine Opiates Screen Neg (NEG) Urine Methadone Screen Neg (NEG) Urine Barbiturates Neg (NEG) Urine Phencyclidine Screen Neg (NEG) Urine Amphetamine/Methamphetamine Neg (NEG) Urine Benzodiazepines Screen Neg (NEG) Urine Cocaine Screen Neg (NEG) Urine Cannabinoids Screen Neg (NEG) Urine Ethyl Alcohol Neg (NEG) Glucose (Fingerstick) 212mg/dL (70-99) 237mg/dL (70-99) Test 07/10/16 11:48 07/10/16 17:31 Glucose (Fingerstick) 306mg/dL (70-99) 324mg/dL (70-99) Laboratory Tests Test 07/09/16 20:55 07/10/16 07:29 07/10/16 11:48 07/10/16 17:31 Glucose (Fingerstick) 212mg/dL (70-99) 237mg/dL (70-99) 306mg/dL (70-99) 324mg/dL (70-99) Assessment/Plan Assessment/Plan This patient is 46-year-old male who presented history of personality disorder presents with complaint of sensory deficit on right upper and lower extremity with complaint of tingling and numbness. He denies any difficulty speaking denies any weakness. No headache weakness in his legs noted complains of tingling numbness in the legs. He reports he has some chronic neck pain. Denies any acute neck pain currently. He had MRI brain done with no acute intracranial process. History of chronic neck pains We will check MRI of the C-spine to rule out any acute process History of diabetes with neuropathy. Continue gabapentin. Check HbA1c Check vitamin B12 TSH Continue medical management POPEYE GOTTLIEB MD Jul 10, 2016 17:41
[2016-07-10] MEDS ORDERED: ASPIRIN 81 MG TAB.CHEW PO SCH (18:00)
--- NOTE | 2016-07-10 18:15 | RAD ---
PROCEDURE Cervical spine MRI without contrast. HISTORY Right-sided neck and shoulder pain and paresthesia. TECHNIQUE Multiplanar and multi sequence magnetic resonance imaging of the cervical spine was performed without contrast. COMPARISON None. FINDINGS There is cervical curvature secondary to thoracic scoliosis. There is no significant cervical listhesis. The vertebral bodies are normal in height. No suspicious osseous lesion is seen. There is mild paranasal sinus mucosal thickening. 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 No spinal cord lesion is seen. At C2-C3, there is a disc bulge and endplate remodeling. There is no stenosis. At C3-C4, there is a shallow posterior central disc protrusion superimposed on a disc bulge and endplate remodeling. There is no stenosis. At C4-C5, there is a shallow left paracentral disc protrusion superimposed on a disc bulge and endplate remodeling. There is no stenosis. At C5-C6, there is a disc bulge and endplate remodeling. There is no stenosis. At C6-C7, there is a disc bulge and endplate remodeling. There is no stenosis. IMPRESSION 1. Mild degenerative change within the cervical spine, without significant foraminal or central canal stenosis. 2. Left cerebellar malformation. This is better assessed on the recent brain MRI. 3. Scoliosis. Electronically signed by: Rosie Parker (Jul 10, 2016 18:14:03)
[2016-07-10] MEDS ORDERED: GABA-586 PO (18:22)
--- NOTE | 2016-07-15 20:58 | DS ---
DATE OF DISCHARGE: 07/10/2016 DISCHARGE DIAGNOSES: Right upper extremity and lower extremity tingling, numbness, possible due to diabetic neuropathy, uncontrolled diabetes mellitus with HbA1c more than 10. CONSULTATION DURING HOSPITALIZATION: Neurology. IMAGING STUDIES DURING HOSPITALIZATION: 1. MRI of the brain, no acute findings seen. 2. Cervical MRI spine, no acute findings noted. BRIEF HOSPITAL COURSE: A 46-year-old male patient admitted to the hospital by Dr. Limon for right upper extremity and lower extremity tingling, numbness. Upon arrival, the patient's blood sugars were more than 400 and HbA1c more than 10. However, the patient declined to take insulin to control his blood sugar, the patient says he is afraid of needles and he does not want to take insulin. I did explain about his HbA1c and the importance of taking insulin at least for short period of time until his blood sugars controlled; however, the patient did not want to take any insulin. During the hospitalization, he was evaluated by Dr. Wren and we started him on gabapentin for tingling and numbness and also recommendation to control his blood sugars. After investigations, the patient deemed clinically stable enough to go home and follow up with the primary care doctor in ____. DISCHARGE EXAMINATION: GENERAL: Alert, oriented x 3. HEART: S1, S2 present. LUNGS: Clear to auscultation. ABDOMEN: Soft, nontender, no organomegaly. EXTREMITIES: No edema. DISCHARGE DISPOSITION: Home. DISCHARGE CONDITION: Stable. DISCHARGE PROGNOSIS: Guarded. MEDICATIONS: Gabapentin 300 mg three times a day. FOLLOWUP: With primary care doctor. Total time spent for discharge is 32 minutes for patient education, counseling, coordination of care and physical exam. ALESSANDRO RUFF MD DR: MUSTAPHA/chapin JOB#: [id number] / [id number] LIZANDRO
== END 2016-07-10 19:10 | disposition home or self-care (01) ==
LOC: ER 14:33 → ED HOLD 17:23 → 6 SOUTH 20:05
PROVIDERS: ADMIT Internal Medicine; ATTEND Internal Medicine
DX: R20.2 Paresthesia of skin (principal); R20.0 Anesthesia of skin; G89.29 Other chronic pain; M54.2 Cervicalgia; E11.40 Type 2 diabetes mellitus with diabetic neuropathy, unspecified; J30.2 Other seasonal allergic rhinitis; Z90.49 Acquired absence of other specified parts of digestive tract; Z23 Encounter for immunization
CPT/HCPCS: 36415; 70450; 70551; 71010; 72141; 80048; 82947; 83036; 84484; 85027; 85610; 90471; 90472; 90686; 90732; 93005; 96372; 96374; 96375; 97162; 99285; G0378; G0481; G8987; J1815; J2060; G0379; G0480

== ENCOUNTER 2016-08-22 20:37 | Inpatient (IN) | payer BC ==
[~2016-08-22] VITALS: Ht 167.6 cm; Wt 67.7 kg
[~2016-08-22 20:37] MED LIST changes: +GABA-586 PO; +SITA50TA PO
[2016-08-22 21:09] LABS: BASO % 1 % (0-3); EOS % 1 % (0-3); HEMATOCRIT 41.4 % (39.0-53.0); HEMOGLOBIN 14.4 g/dL (13.0-17.5); LYMPH # 0.8 x10^3/uL (1.0-4.8); LYMPH % 19 % (24-48); MEAN CORPUSCULAR HEMOGLOBIN 30 pg (25-35); MEAN CORPUSCULAR HGB CONC 35 g/dL (31-37); MEAN CORPUSCULAR VOLUME 87 fL (79-100); MONO % 7 % (0-9); NEUT % 72 % (31-73); PLATELET COUNT 67 x10^3/uL (140-400); RED BLOOD COUNT 4.75 x10^6/uL (4.30-5.70); RED CELL DISTRIBUTION WIDTH 14.2 % (11.5-14.5); WHITE BLOOD COUNT 4.2 x10^3/uL (4.0-11.0)
[2016-08-22] MEDS ORDERED: NEOMY/BACITR/POLYMYXIN OINT PACKET. TP ONE (21:15)
[2016-08-22 21:16] LABS: BARBITURATES NEG (NEG); BENZODIAZEPINES NEG (NEG); CANNABINOIDS NEG (NEG); COCAINE NEG (NEG); METHADONE NEG (NEG); OPIATES NEG (NEG); PHENCYCLIDINE NEG (NEG)
[2016-08-22 21:17] LABS: ETHANOL, URINE NEG (NEG)
[2016-08-22 21:19] LABS: CALCIUM 9.7 mg/dL (8.5-10.1); CREATININE 0.7 mg/dL (0.7-1.3); GFR 120.9; POTASSIUM 3.8 mmol/L (3.5-5.1)
[2016-08-22 21:25] LABS: ALBUMIN 4.2 g/dL (3.4-5.0); ALBUMIN/GLOBULIN RATIO 1.2 (1.0-1.7); TOTAL BILIRUBIN 0.8 mg/dL (0.2-1.0); TOTAL PROTEIN 7.7 g/dL (6.4-8.2)
--- NOTE | 2016-08-22 21:31 | PHYS DOC ---
Past Medical History Past Medical History: Anxiety, Depression, Diabetes-Type II, Other Additional Past Medical Histor: SEASONAL ALLERGIES, ASPERGERS, Past Surgical History: Appendectomy, Other Additional Past Surgical Histo: knee arthroscopy Alcohol Use: Heavy Drug Use: None Adult General Chief Complaint Chief Complaint: SUICDAL IDEATION HPI HPI Patient is a 46 year old male who presents with suicidal ideation. Patient reports he received notice today that he will have to vacate his residence for a few days this upcoming week for fumigation and has been feeling especially depressed because of this. He tried to slit his wrists with a kitchen knife, but it was dull and he was unable to carry through and cause serious injury. He denies any other plans to kill himself. He states he wants to go to sleep and not wake up, but is unsure that he would be able to actually kill himself. He denies HI. Patient does report regularly drinking beer, most recently last night. He denies any illicit drug use. He does have a history of depression and says he has been compliant with his medication (he cannot recall the name of the medication). Patient states he got tetanus booster last year. Review of Systems Review of Systems Constitutional: Denies fever or chills Respiratory: Denies cough or shortness of breath Cardiovascular: Denies chest pain GI: Denies abdominal pain, nausea, vomiting, bloody stools or diarrhea : Denies dysuria or hematuria Musculoskeletal: Denies back pain or joint pain Integument: Denies rash or skin lesions Neurologic: Denies headache, focal weakness or sensory changes Psych: Depression, suicidal ideation Current Medications Current Medications Current Medications Medications (Trade) Dose Ordered Sig/Digna Start Time Stop Time Status Last Admin Dose Admin Neomycin/ Polymyxin/ Bacitracin 1 pkt 1 pkt 1X ONCE 08/22/16 21:15 08/22/16 21:16 DC 08/22/16 21:27 1 PKT Sodium Chloride (Iv Sodium Chloride 0.9% 1000ml Bag) 1,000 ml @ 1,000 mls/hr 1X ONCE 08/22/16 22:15 08/22/16 23:14 DC 08/22/16 22:15 1,000 MLS/HR Allergies Allergies Allergies Coded Allergies Type Severity Reaction Last Updated Verified prochlorperazine Allergy Intermediate 01/24/16 Yes Physical Exam Physical Exam Constitutional: Well developed, well nourished, no acute distress, non-toxic appearance HENT: Normocephalic, atraumatic, bilateral external ears normal Eyes: EOMI, conjunctiva normal, no discharge Neck: Normal range of motion, no stridor Cardiovascular: Heart rate normal, regular rhythm, no murmur Lungs & Thorax: Bilateral breath sounds clear to auscultation Abdomen: Bowel sounds normal, soft, non-distended, no TTP Skin: Warm, dry, no erythema, no rash Extremities: Few very superficial lacerations to b/l wrists (does not penetrate full thickness of skin); full motor function and sensation to light touch intact , 2+ radial pulse b/l Neurologic: Alert and oriented X 3, no gross deficits noted Psychologic: Depressed mood, flat affect Current Patient Data Vital Signs Vital Signs Date Time Temp Pulse Resp B/P Pulse Ox O2 Delivery O2 Flow Rate FiO2 08/23/16 00:00 74 158/92 98 Room Air 08/22/16 20:38 98.5 16 98.5 Lab Values Laboratory Tests Test 08/22/16 21:00 08/22/16 21:01 White Blood Count 4.2x10^3/uL (4.0-11.0) Red Blood Count 4.75x10^6/uL (4.30-5.70) Hemoglobin 14.4g/dL (13.0-17.5) Hematocrit 41.4% (39.0-53.0) Mean Corpuscular Volume 87fL (79-100) Mean Corpuscular Hemoglobin 30pg (25-35) Mean Corpuscular Hemoglobin Concent 35g/dL (31-37) Red Cell Distribution Width 14.2% (11.5-14.5) Platelet Count 67x10^3/uL (140-400) L Neutrophils (%) (Auto) 72% (31-73) Lymphocytes (%) (Auto) 19% (24-48) L Monocytes (%) (Auto) 7% (0-9) Eosinophils (%) (Auto) 1% (0-3) Basophils (%) (Auto) 1% (0-3) Neutrophils # (Auto) 3.0x10^3uL (1.8-7.7) Lymphocytes # (Auto) 0.8x10^3/uL (1.0-4.8) L Monocytes # (Auto) 0.3x10^3/uL (0.0-1.1) Eosinophils # (Auto) 0.1x10^3/uL (0.0-0.7) Basophils # (Auto) 0.0x10^3/uL (0.0-0.2) Sodium Level 130mmol/L (136-145) L Potassium Level 3.8mmol/L (3.5-5.1) Chloride Level 92mmol/L (98-107) L Carbon Dioxide Level 25mmol/L (21-32) Anion Gap 13 (6-14) Blood Urea Nitrogen 13mg/dL (8-26) Creatinine 0.7mg/dL (0.7-1.3) Estimated GFR (Cockcroft-Gault) 120.9 BUN/Creatinine Ratio 19 (6-20) Glucose Level 108mg/dL (70-99) H Calcium Level 9.7mg/dL (8.5-10.1) Total Bilirubin 0.8mg/dL (0.2-1.0) Aspartate Amino Transferase (AST) 34U/L (15-37) Alanine Aminotransferase (ALT) 45U/L (16-63) Alkaline Phosphatase 76U/L (46-116) Total Protein 7.7g/dL (6.4-8.2) Albumin 4.2g/dL (3.4-5.0) Albumin/Globulin Ratio 1.2 (1.0-1.7) Ethyl Alcohol Level < 10mg/dL (0-10) Urine Opiates Screen Neg (NEG) Urine Methadone Screen Neg (NEG) Urine Barbiturates Neg (NEG) Urine Phencyclidine Screen Neg (NEG) Urine Amphetamine/Methamphetamine Neg (NEG) Urine Benzodiazepines Screen Neg (NEG) Urine Cocaine Screen Neg (NEG) Urine Cannabinoids Screen Neg (NEG) Urine Ethyl Alcohol Neg (NEG) Laboratory Tests 08/22/16 21:00 Laboratory Tests 08/22/16 21:00 EKG EKG [] Radiology/Procedures Radiology/Procedures [] Course & Med Decision Making Course & Med Decision Making Pertinent Labs and Imaging studies reviewed. (See chart for details) Patient is 46 year old male who presents with SI. Superficial lacs to b/l wrists minor and do not require repair. UTD on tetanus. Will clean and apply antibiotic ointment. Will check labs in anticipation of possible psych placement. PAT team called to consult. Labs notable for hyponatremia. Most psych facilities full, the one with an open spot will not take patient with hyponatremia. 1 liter normal saline bolus ordered. Discussed with Dr. Godfrey, will admit under his care for further evaluation and treatment. Dragon Disclaimer Dragon Disclaimer This electronic medical record was generated, in whole or in part, using a voice recognition dictation system. Departure Departure Impression: Primary Impression: Suicidal ideation Additional Impression: Hyponatremia Disposition: ADMITTED INPATIENT Admitting Physician: Josefa Godfrey Condition: STABLE Referrals: UNKNOWN PCP NAME (PCP) Problem Qualifiers JOSE ABEL MD Aug 22, 2016 21:31
[2016-08-22] MEDS ORDERED: IV NORMAL SALINE 1000ML BAG 1,000 ML IV ONE (22:15)
--- NOTE | 2016-08-22 23:56 | ACF ---
Admission Forms Criteria PSYCHIATRIC DISORDERS Clinical Indications for Inpatient Care (Place 'X' for any and all applicable criteria): Ongoing inpatient care may be needed for ANY ONE of the following(1)(2)(3)(4)(6) (7)(8): [ X]I. Danger to self or others not manageable at lower level of care. [ ]II. Grave disability (eg, inability to perform self care necessary at lower level of care) [ ]III. Agitation or inappropriate behavior interfering with care for primary condition (eg, attempting to discontinue lines or drains prematurely, unable to cooperate with respiratory care) [ ]IV. Severe disability or disorder indicated by ALL of the following: [ ]a) Severe behavioral health disorder-related symptoms or condition indicated by ANY ONE of the following: [ ]i) Severe problem with cognition, memory, judgment, or impulse control [ ]ii) Severe clinical manifestations (eg, hallucinations, delusions, other acute psychotic symptoms, aj, extreme agitation or anxiety) [ ]b) Patient management at lower level of care is not feasible until acute intervention or modification is initiated. Extended stay beyond goal length of stay for the primary condition may be indicated when ANY ONE of the following is present: (1)(2)(3)(4): [ ]a) Patient is a danger to self or others and not manageable at lower level of care. [ ]b) Behavior crisis management, including physical or chemical restraints, is required and is not available at a lower level of care. [ ]c) Behavioral symptoms (e.g., agitation, somnolence, inappropriate behavior) are present, and are not manageable at a lower level of care. [ ]d) Patient cannot understand follow-up treatment and crisis plan. [ ]e) Provider and supports are not sufficiently available at lower level of care. [ ]f) Patient cannot participate (e.g., verify absence of plan for harm) and is in needed of monitoring. The original [employer] content created by [employer] has been revised. The portions of the content which have been revised are identified through the use of italic text or in bold, and [employer] [employer] has neither reviewed nor approved the modified material. All other unmodified content is copyright [facility] [employer]. Please see references footnoted in the original [facility] edition 2016 TOMY GRAY Aug 22, 2016 23:56
--- NOTE | 2016-08-22 23:58 | ACF ---
Admit Criteria Forms Admit Criteria Forms Admit Criteria Forms PSYCHIATRIC DISORDERS Clinical Indications for Inpatient Care (Place 'X' for any and all applicable criteria): Ongoing inpatient care may be needed for ANY ONE of the following(1)(2)(3)(4)(6) (7)(8): [X]I. Danger to self or others not manageable at lower level of care. [ ]II. Grave disability (eg, inability to perform self care necessary at lower level of care) [ ]III. Agitation or inappropriate behavior interfering with care for primary condition (eg, attempting to discontinue lines or drains prematurely, unable to cooperate with respiratory care) [ ]IV. Severe disability or disorder indicated by ALL of the following: [ ]a) Severe behavioral health disorder-related symptoms or condition indicated by ANY ONE of the following: [ ]i) Severe problem with cognition, memory, judgment, or impulse control [ ]ii) Severe clinical manifestations (eg, hallucinations, delusions, other acute psychotic symptoms, aj, extreme agitation or anxiety) [ ]b) Patient management at lower level of care is not feasible until acute intervention or modification is initiated. Extended stay beyond goal length of stay for the primary condition may be indicated when ANY ONE of the following is present: (1)(2)(3)(4): [ ]a) Patient is a danger to self or others and not manageable at lower level of care. [ ]b) Behavior crisis management, including physical or chemical restraints, is required and is not available at a lower level of care. [ ]c) Behavioral symptoms (e.g., agitation, somnolence, inappropriate behavior) are present, and are not manageable at a lower level of care. [ ]d) Patient cannot understand follow-up treatment and crisis plan. [ ]e) Provider and supports are not sufficiently available at lower level of care. [ ]f) Patient cannot participate (e.g., verify absence of plan for harm) and is in needed of monitoring. The original [facility] content created by [facility] has been revised. The portions of the content which have been revised are identified through the use of italic text or in bold, and [facility] has neither reviewed nor approved the modified material. All other unmodified content is copyright [facility]. Please see references footnoted in the original [facility] edition 2016 MARCELINA BAIRD Aug 22, 2016 23:58
[2016-08-23] MEDS ORDERED: ONDANSETRON PF 4 MG/2 ML VIAL. IV PRN ×2 (00:30→11:00)
[2016-08-23] MEDS ORDERED: ACETAMINOPHEN 325 MG TABLET. PO PRN ×2 (00:30→11:00)
[2016-08-23 02:50] VITALS: BP 134/88
[2016-08-23] MEDS ORDERED: ATOR40TA59 PO (03:57)
[2016-08-23] MEDS ORDERED: MONT10TA9 PO (03:57)
[2016-08-23] MEDS ORDERED: GABA300C8 PO (03:57)
[2016-08-23] MEDS ORDERED: SITA100T PO (03:57)
[2016-08-23] MEDS ORDERED: METF500T9 PO (03:57)
[2016-08-23 07:15] VITALS: BP 136/93
--- NOTE | 2016-08-23 09:30 | PDOC1 ---
History and Physical Past Medical History Past Medical History Past Medical History: Anxiety, Depression, Diabetes-Type II, SEASONAL ALLERGIES , ASPERGERS, Past Surgical History: Appendectomy, knee arthroscopy Alcohol Use: Heavy Drug Use: None FH: not able to obtain Endocrine: Diabetes Past Surgical History Past Surgical History: Appendectomy Family History Family History: No Significant Social History ALCOHOL: occassional Drugs: None Current Problem List Problem List Problems Medical Problems: (1) Hyponatremia Status: Acute (2) Suicidal ideation Status: Acute Current Medications Current Medications Current Medications Medications (Trade) Dose Ordered Sig/Digna Start Time Stop Time Status Last Admin Dose Admin Acetaminophen (Tylenol) 650 mg PRN Q4HRS PRN 08/23/16 00:30 08/24/16 00:29 Neomycin/ Polymyxin/ Bacitracin 1 pkt 1 pkt 1X ONCE 08/22/16 21:15 08/22/16 21:16 DC 08/22/16 21:27 1 PKT Ondansetron HCl (Zofran) 4 mg PRN Q8HRS PRN 08/23/16 00:30 08/24/16 00:29 Sodium Chloride (Iv Sodium Chloride 0.9% 1000ml Bag) 1,000 ml @ 1,000 mls/hr 1X ONCE 08/22/16 22:15 08/22/16 23:14 DC 08/22/16 22:15 1,000 MLS/HR Allergies Allergies Allergies Coded Allergies Type Severity Reaction Last Updated Verified prochlorperazine Allergy Intermediate 01/24/16 Yes ROS Review of System CONSTITUTIONAL: No fever or chills, weakness EYES: No recent changes SKIN: No rash or itching CARDIOVASCULAR: No chest pain, syncope, palpitations, or edema RESPIRATORY: No SOB or cough GASTROINTESTINAL: No nausea, vomiting or abdominal pain NEUROLOGICAL: No headaches or weakness ENDOCRINE: No cold or heat intolerance GENITOURINARY: No urgency or frequency of urination MUSCULOSKELETAL: No back pain or joint pain LYMPHATICS: No enlarged lymph nodes PSYCHIATRIC: severe depression left wristcuts Physical Exam Physical Exam GEN.: No apparent distress. Alert and oriented. HEENT: Head is normocephalic, atraumatic NECK: Supple. LUNGS: Clear to auscultation. HEART: RRR, S1, S2 present. Peripheral pulses intact ABDOMEN: Soft, nontender. Positive bowel sounds. EXTREMITIES: Without any cyanosis. NEUROLOGIC: Normal speech, normal tone PSYCHIATRIC: Normal affect, normal mood. SKIN: No ulcerations Vitals Vitals Vital Signs Date Time Temp Pulse Resp B/P Pulse Ox O2 Delivery O2 Flow Rate FiO2 08/23/16 07:15 98.4 69 18 136/93 98 Room Air 98.4 Labs Labs Laboratory Tests Test 08/22/16 21:00 08/22/16 21:01 White Blood Count 4.2x10^3/uL (4.0-11.0) Red Blood Count 4.75x10^6/uL (4.30-5.70) Hemoglobin 14.4g/dL (13.0-17.5) Hematocrit 41.4% (39.0-53.0) Mean Corpuscular Volume 87fL (79-100) Mean Corpuscular Hemoglobin 30pg (25-35) Mean Corpuscular Hemoglobin Concent 35g/dL (31-37) Red Cell Distribution Width 14.2% (11.5-14.5) Platelet Count 67x10^3/uL (140-400) Neutrophils (%) (Auto) 72% (31-73) Lymphocytes (%) (Auto) 19% (24-48) Monocytes (%) (Auto) 7% (0-9) Eosinophils (%) (Auto) 1% (0-3) Basophils (%) (Auto) 1% (0-3) Neutrophils # (Auto) 3.0x10^3uL (1.8-7.7) Lymphocytes # (Auto) 0.8x10^3/uL (1.0-4.8) Monocytes # (Auto) 0.3x10^3/uL (0.0-1.1) Eosinophils # (Auto) 0.1x10^3/uL (0.0-0.7) Basophils # (Auto) 0.0x10^3/uL (0.0-0.2) Sodium Level 130mmol/L (136-145) Potassium Level 3.8mmol/L (3.5-5.1) Chloride Level 92mmol/L (98-107) Carbon Dioxide Level 25mmol/L (21-32) Anion Gap 13 (6-14) Blood Urea Nitrogen 13mg/dL (8-26) Creatinine 0.7mg/dL (0.7-1.3) Estimated GFR (Cockcroft-Gault) 120.9 BUN/Creatinine Ratio 19 (6-20) Glucose Level 108mg/dL (70-99) Calcium Level 9.7mg/dL (8.5-10.1) Total Bilirubin 0.8mg/dL (0.2-1.0) Aspartate Amino Transf (AST/SGOT) 34U/L (15-37) Alanine Aminotransferase (ALT/SGPT) 45U/L (16-63) Alkaline Phosphatase 76U/L (46-116) Total Protein 7.7g/dL (6.4-8.2) Albumin 4.2g/dL (3.4-5.0) Albumin/Globulin Ratio 1.2 (1.0-1.7) Ethyl Alcohol Level < 10mg/dL (0-10) Urine Opiates Screen Neg (NEG) Urine Methadone Screen Neg (NEG) Urine Barbiturates Neg (NEG) Urine Phencyclidine Screen Neg (NEG) Urine Amphetamine/Methamphetamine Neg (NEG) Urine Benzodiazepines Screen Neg (NEG) Urine Cocaine Screen Neg (NEG) Urine Cannabinoids Screen Neg (NEG) Urine Ethyl Alcohol Neg (NEG) Laboratory Tests Test 08/22/16 21:00 08/22/16 21:01 White Blood Count 4.2x10^3/uL (4.0-11.0) Red Blood Count 4.75x10^6/uL (4.30-5.70) Hemoglobin 14.4g/dL (13.0-17.5) Hematocrit 41.4% (39.0-53.0) Mean Corpuscular Volume 87fL (79-100) Mean Corpuscular Hemoglobin 30pg (25-35) Mean Corpuscular Hemoglobin Concent 35g/dL (31-37) Red Cell Distribution Width 14.2% (11.5-14.5) Platelet Count 67x10^3/uL (140-400) Neutrophils (%) (Auto) 72% (31-73) Lymphocytes (%) (Auto) 19% (24-48) Monocytes (%) (Auto) 7% (0-9) Eosinophils (%) (Auto) 1% (0-3) Basophils (%) (Auto) 1% (0-3) Neutrophils # (Auto) 3.0x10^3uL (1.8-7.7) Lymphocytes # (Auto) 0.8x10^3/uL (1.0-4.8) Monocytes # (Auto) 0.3x10^3/uL (0.0-1.1) Eosinophils # (Auto) 0.1x10^3/uL (0.0-0.7) Basophils # (Auto) 0.0x10^3/uL (0.0-0.2) Sodium Level 130mmol/L (136-145) Potassium Level 3.8mmol/L (3.5-5.1) Chloride Level 92mmol/L (98-107) Carbon Dioxide Level 25mmol/L (21-32) Anion Gap 13 (6-14) Blood Urea Nitrogen 13mg/dL (8-26) Creatinine 0.7mg/dL (0.7-1.3) Estimated GFR (Cockcroft-Gault) 120.9 BUN/Creatinine Ratio 19 (6-20) Glucose Level 108mg/dL (70-99) Calcium Level 9.7mg/dL (8.5-10.1) Total Bilirubin 0.8mg/dL (0.2-1.0) Aspartate Amino Transf (AST/SGOT) 34U/L (15-37) Alanine Aminotransferase (ALT/SGPT) 45U/L (16-63) Alkaline Phosphatase 76U/L (46-116) Total Protein 7.7g/dL (6.4-8.2) Albumin 4.2g/dL (3.4-5.0) Albumin/Globulin Ratio 1.2 (1.0-1.7) Ethyl Alcohol Level < 10mg/dL (0-10) Urine Opiates Screen Neg (NEG) Urine Methadone Screen Neg (NEG) Urine Barbiturates Neg (NEG) Urine Phencyclidine Screen Neg (NEG) Urine Amphetamine/Methamphetamine Neg (NEG) Urine Benzodiazepines Screen Neg (NEG) Urine Cocaine Screen Neg (NEG) Urine Cannabinoids Screen Neg (NEG) Urine Ethyl Alcohol Neg (NEG) VTE Prophylaxis Ordered VTE Prophylaxis Devices: Yes VTE Pharmacological Prophylaxi: No ALESSANDRO RUFF MD Aug 23, 2016 09:30
[2016-08-23 10:43] LABS: CALCIUM 9.2 mg/dL (8.5-10.1); CREATININE 0.7 mg/dL (0.7-1.3); GFR 120.9; POTASSIUM 4.5 mmol/L (3.5-5.1)
[2016-08-23 11:00] VITALS: BP 133/89
[2016-08-23] MEDS ORDERED: ALBUTEROL SULFATE 2.5 MG/3 ML NEBU. NEB PRN (11:00)
[2016-08-23] MEDS ORDERED: hydrALAZINE 20 MG/ML VIAL. IVP PRN (11:00)
[2016-08-23] MEDS ORDERED: BUTALB/APAP/CAFEIN 50/325/40MG TABLET. PO PRN (11:00)
[2016-08-23] MEDS ORDERED: HYDROCODONE/APAP 5/325MG TABLET. PO PRN (11:00)
[2016-08-23] MEDS: PANTOPRAZOLE 40 MG TABLET. PO SCH (11:17)
[2016-08-23] MEDS: IV NORMAL SALINE 1000ML BAG 1,000 ML IV SCH (11:17)
[2016-08-23] MEDS: MONTELUKAST SODIUM 10 MG TABLET. PO SCH (11:18)
[2016-08-23] MEDS: LINAGLIPTIN 5 MG TABLET PO SCH (12:22)
[2016-08-23] MEDS ORDERED: ALPRAZOLAM 0.5 MG TABLET PO PRN (14:00)
[2016-08-23] MEDS: ONDANSETRON ODT 4 MG TAB.RAPDIS PO SCH ×2 (14:00→20:42)
[2016-08-23] MEDS ORDERED: FLUO20CA16 PO (14:31)
[2016-08-23] MEDS: GABAPENTIN 300 MG CAPSULE. PO SCH ×2 (14:53→20:42)
[2016-08-23 14:55] VITALS: BP 139/88
[2016-08-23] MEDS ORDERED: MULTIVIT INFUSN,ADULT 4,VIT K 10 ML, THIAMINE 100 MG, FOLIC ACID 1 MG in IV NORMAL SALI... IV SCH (15:00)
--- NOTE | 2016-08-23 15:23 | HP ---
ADMIT DATE: 08/23/2016 TIME OF EXAM: 10:00 a.m. CHIEF COMPLAINT: Suicidal ideations. HISTORY OF PRESENT ILLNESS: A 46-year-old male patient with history of anxiety, depression, and type 2 diabetes mellitus, presented to the ER with complaints of suicidal ideations. Reportedly patient got an evacuation notice from his resident for fumigation. He has been depressed about it and he did not have any place to stay in. He tried to slit his wrist with a kitchen knife; however, he could not able to complete the act. He says he is afraid to with pain, he wanted to in his sleep. He did not have any interest, and he complains of severe weakness and has been reportedly drinking beer, mostly at nighttime. I do know patient from his previous admission at the time he was admitted for upper extremity tingling and numbness. PAST MEDICAL HISTORY: Please see my electronic H and P. REVIEW OF SYSTEMS: Please see my electronic H and P. LABORATORY FINDINGS: Hematology, hemoglobin is 14.4, WBC 4.2, MCV is 87, platelets 67. Chemistry, sodium is 132, potassium is 4.5, chloride is 97, anion gap is 6, glucose 108, toxicology is negative. Imaging studies not done. ASSESSMENT: 1. Active suicidal ideations. 2. Severe depression. 3. Type 2 diabetes mellitus. 4. Thrombocytopenia. 5. Anxiety. 6. Excessive alcohol intake. PLAN: The patient is admitted to the hospital for suicidal preventions and psychiatric assessment. Psychiatric assessment team has been consulted, awaiting for placement in psychiatric hospital admission. Patient is not safe to go home. Monitor platelets. I will start him on banana bag with multivitamins. Alcohol withdrawal preventions. One-to-one sitter. I did review his home medications for diabetes; however, I could not able to verify his depression medications. Did discuss with RN and we need to verify with pharmacy. As per the report, patient did not take any medications for long time. Prognosis guarded. Plan explained to the patient. ALESSANDRO RUFF MD DR: MUSTAPHA/chapin JOB#: [id number] / [id number]
[2016-08-23 19:00] VITALS: BP 123/81
[2016-08-23] MEDS ORDERED: IV NORMAL SALINE 1000ML BAG 1,000 ML IV SCH (21:00)
[2016-08-23] MEDS ORDERED: MIRTAZAPINE 7.5 MG TABLET. PO SCH (21:00)
[2016-08-23 23:00] VITALS: BP 120/76
[2016-08-24] MEDS: IV NORMAL SALINE 1000ML BAG 1,000 ML IV SCH ×2 (02:00→12:08)
[2016-08-24 03:00] VITALS: BP 113/77
[2016-08-24 04:39] LABS: BASO % 1 % (0-3); EOS % 3 % (0-3); HEMATOCRIT 39.7 % (39.0-53.0); HEMOGLOBIN 13.6 g/dL (13.0-17.5); LYMPH # 0.9 x10^3/uL (1.0-4.8); LYMPH % 38 % (24-48); MEAN CORPUSCULAR HEMOGLOBIN 30 pg (25-35); MEAN CORPUSCULAR HGB CONC 34 g/dL (31-37); MEAN CORPUSCULAR VOLUME 88 fL (79-100); MONO % 11 % (0-9); NEUT % 47 % (31-73); PLATELET COUNT 58 x10^3/uL (140-400); RED BLOOD COUNT 4.49 x10^6/uL (4.30-5.70); RED CELL DISTRIBUTION WIDTH 14.1 % (11.5-14.5); WHITE BLOOD COUNT 2.4 x10^3/uL (4.0-11.0)
[2016-08-24 05:07] LABS: CALCIUM 9.2 mg/dL (8.5-10.1); CREATININE 0.7 mg/dL (0.7-1.3); GFR 120.9; POTASSIUM 3.8 mmol/L (3.5-5.1)
[2016-08-24] MEDS: ONDANSETRON ODT 4 MG TAB.RAPDIS PO SCH ×2 (06:00→13:36)
[2016-08-24 07:25] VITALS: BP 115/69
[2016-08-24] MEDS: LINAGLIPTIN 5 MG TABLET PO SCH (08:27)
[2016-08-24] MEDS: GABAPENTIN 300 MG CAPSULE. PO SCH ×2 (08:27→13:36)
[2016-08-24] MEDS: PANTOPRAZOLE 40 MG TABLET. PO SCH (08:27)
[2016-08-24] MEDS: MONTELUKAST SODIUM 10 MG TABLET. PO SCH (08:27)
[2016-08-24] MEDS ORDERED: ATORVASTATIN CALCIUM 40 MG TABLET. PO SCH (09:00)
[2016-08-24] MEDS ORDERED: METFORMIN XR 500 MG TAB.ER.24H PO SCH (09:00)
--- NOTE | 2016-08-24 10:28 | PDOC ---
PROGRESS NOTES Chief Complaint Chief Complaint 1. Active suicidal ideations. 2. Severe depression. 3. Type 2 diabetes mellitus. 4. Thrombocytopenia. 5. Anxiety. 6. Excessive alcohol intake. Plan 1-1 sitter alcohol withdrawal prevention Inpt psychiatry admission placement pending Vitals Vitals Vital Signs Date Time Temp Pulse Resp B/P Pulse Ox O2 Delivery O2 Flow Rate FiO2 08/24/16 07:25 98.0 70 18 115/69 97 Room Air 98.0 Physical Exam Lungs: Clear Labs LABS Laboratory Tests Test 08/23/16 10:53 08/23/16 17:09 08/23/16 20:41 08/24/16 03:28 Glucose (Fingerstick) 105mg/dL (70-99) 112mg/dL (70-99) 115mg/dL (70-99) White Blood Count 2.4x10^3/uL (4.0-11.0) Red Blood Count 4.49x10^6/uL (4.30-5.70) Hemoglobin 13.6g/dL (13.0-17.5) Hematocrit 39.7% (39.0-53.0) Mean Corpuscular Volume 88fL (79-100) Mean Corpuscular Hemoglobin 30pg (25-35) Mean Corpuscular Hemoglobin Concent 34g/dL (31-37) Red Cell Distribution Width 14.1% (11.5-14.5) Platelet Count 58x10^3/uL (140-400) Neutrophils (%) (Auto) 47% (31-73) Lymphocytes (%) (Auto) 38% (24-48) Monocytes (%) (Auto) 11% (0-9) Eosinophils (%) (Auto) 3% (0-3) Basophils (%) (Auto) 1% (0-3) Neutrophils # (Auto) 1.1x10^3uL (1.8-7.7) Lymphocytes # (Auto) 0.9x10^3/uL (1.0-4.8) Monocytes # (Auto) 0.3x10^3/uL (0.0-1.1) Eosinophils # (Auto) 0.1x10^3/uL (0.0-0.7) Basophils # (Auto) 0.0x10^3/uL (0.0-0.2) Sodium Level 139mmol/L (136-145) Potassium Level 3.8mmol/L (3.5-5.1) Chloride Level 102mmol/L (98-107) Carbon Dioxide Level 29mmol/L (21-32) Anion Gap 8 (6-14) Blood Urea Nitrogen 10mg/dL (8-26) Creatinine 0.7mg/dL (0.7-1.3) Estimated GFR (Cockcroft-Gault) 120.9 Glucose Level 118mg/dL (70-99) Calcium Level 9.2mg/dL (8.5-10.1) Test 08/24/16 08:20 Glucose (Fingerstick) 94mg/dL (70-99) Assessment and Plan Assessmemt and Plan Problems Medical Problems: (1) Hyponatremia Status: Acute (2) Suicidal ideation Status: Acute Problems: Comment Review of Relevant I have reviewed the following items ana (where applicable) has been applied. Labs Laboratory Tests Test 08/22/16 21:00 08/22/16 21:01 08/23/16 07:33 08/23/16 10:20 White Blood Count 4.2x10^3/uL (4.0-11.0) Red Blood Count 4.75x10^6/uL (4.30-5.70) Hemoglobin 14.4g/dL (13.0-17.5) Hematocrit 41.4% (39.0-53.0) Mean Corpuscular Volume 87fL (79-100) Mean Corpuscular Hemoglobin 30pg (25-35) Mean Corpuscular Hemoglobin Concent 35g/dL (31-37) Red Cell Distribution Width 14.2% (11.5-14.5) Platelet Count 67x10^3/uL (140-400) Neutrophils (%) (Auto) 72% (31-73) Lymphocytes (%) (Auto) 19% (24-48) Monocytes (%) (Auto) 7% (0-9) Eosinophils (%) (Auto) 1% (0-3) Basophils (%) (Auto) 1% (0-3) Neutrophils # (Auto) 3.0x10^3uL (1.8-7.7) Lymphocytes # (Auto) 0.8x10^3/uL (1.0-4.8) Monocytes # (Auto) 0.3x10^3/uL (0.0-1.1) Eosinophils # (Auto) 0.1x10^3/uL (0.0-0.7) Basophils # (Auto) 0.0x10^3/uL (0.0-0.2) Sodium Level 130mmol/L (136-145) 132mmol/L (136-145) Potassium Level 3.8mmol/L (3.5-5.1) 4.5mmol/L (3.5-5.1) Chloride Level 92mmol/L (98-107) 97mmol/L (98-107) Carbon Dioxide Level 25mmol/L (21-32) 29mmol/L (21-32) Anion Gap 13 (6-14) 6 (6-14) Blood Urea Nitrogen 13mg/dL (8-26) 12mg/dL (8-26) Creatinine 0.7mg/dL (0.7-1.3) 0.7mg/dL (0.7-1.3) Estimated GFR (Cockcroft-Gault) 120.9 120.9 BUN/Creatinine Ratio 19 (6-20) Glucose Level 108mg/dL (70-99) 108mg/dL (70-99) Calcium Level 9.7mg/dL (8.5-10.1) 9.2mg/dL (8.5-10.1) Total Bilirubin 0.8mg/dL (0.2-1.0) Aspartate Amino Transf (AST/SGOT) 34U/L (15-37) Alanine Aminotransferase (ALT/SGPT) 45U/L (16-63) Alkaline Phosphatase 76U/L (46-116) Total Protein 7.7g/dL (6.4-8.2) Albumin 4.2g/dL (3.4-5.0) Albumin/Globulin Ratio 1.2 (1.0-1.7) Ethyl Alcohol Level < 10mg/dL (0-10) Urine Opiates Screen Neg (NEG) Urine Methadone Screen Neg (NEG) Urine Barbiturates Neg (NEG) Urine Phencyclidine Screen Neg (NEG) Urine Amphetamine/Methamphetamine Neg (NEG) Urine Benzodiazepines Screen Neg (NEG) Urine Cocaine Screen Neg (NEG) Urine Cannabinoids Screen Neg (NEG) Urine Ethyl Alcohol Neg (NEG) Glucose (Fingerstick) 91mg/dL (70-99) Test 08/23/16 10:53 08/23/16 17:09 08/23/16 20:41 08/24/16 03:28 Glucose (Fingerstick) 105mg/dL (70-99) 112mg/dL (70-99) 115mg/dL (70-99) White Blood Count 2.4x10^3/uL (4.0-11.0) Red Blood Count 4.49x10^6/uL (4.30-5.70) Hemoglobin 13.6g/dL (13.0-17.5) Hematocrit 39.7% (39.0-53.0) Mean Corpuscular Volume 88fL (79-100) Mean Corpuscular Hemoglobin 30pg (25-35) Mean Corpuscular Hemoglobin Concent 34g/dL (31-37) Red Cell Distribution Width 14.1% (11.5-14.5) Platelet Count 58x10^3/uL (140-400) Neutrophils (%) (Auto) 47% (31-73) Lymphocytes (%) (Auto) 38% (24-48) Monocytes (%) (Auto) 11% (0-9) Eosinophils (%) (Auto) 3% (0-3) Basophils (%) (Auto) 1% (0-3) Neutrophils # (Auto) 1.1x10^3uL (1.8-7.7) Lymphocytes # (Auto) 0.9x10^3/uL (1.0-4.8) Monocytes # (Auto) 0.3x10^3/uL (0.0-1.1) Eosinophils # (Auto) 0.1x10^3/uL (0.0-0.7) Basophils # (Auto) 0.0x10^3/uL (0.0-0.2) Sodium Level 139mmol/L (136-145) Potassium Level 3.8mmol/L (3.5-5.1) Chloride Level 102mmol/L (98-107) Carbon Dioxide Level 29mmol/L (21-32) Anion Gap 8 (6-14) Blood Urea Nitrogen 10mg/dL (8-26) Creatinine 0.7mg/dL (0.7-1.3) Estimated GFR (Cockcroft-Gault) 120.9 Glucose Level 118mg/dL (70-99) Calcium Level 9.2mg/dL (8.5-10.1) Test 08/24/16 08:20 Glucose (Fingerstick) 94mg/dL (70-99) Laboratory Tests Test 08/23/16 10:53 08/23/16 17:09 08/23/16 20:41 08/24/16 03:28 Glucose (Fingerstick) 105mg/dL (70-99) 112mg/dL (70-99) 115mg/dL (70-99) White Blood Count 2.4x10^3/uL (4.0-11.0) Red Blood Count 4.49x10^6/uL (4.30-5.70) Hemoglobin 13.6g/dL (13.0-17.5) Hematocrit 39.7% (39.0-53.0) Mean Corpuscular Volume 88fL (79-100) Mean Corpuscular Hemoglobin 30pg (25-35) Mean Corpuscular Hemoglobin Concent 34g/dL (31-37) Red Cell Distribution Width 14.1% (11.5-14.5) Platelet Count 58x10^3/uL (140-400) Neutrophils (%) (Auto) 47% (31-73) Lymphocytes (%) (Auto) 38% (24-48) Monocytes (%) (Auto) 11% (0-9) Eosinophils (%) (Auto) 3% (0-3) Basophils (%) (Auto) 1% (0-3) Neutrophils # (Auto) 1.1x10^3uL (1.8-7.7) Lymphocytes # (Auto) 0.9x10^3/uL (1.0-4.8) Monocytes # (Auto) 0.3x10^3/uL (0.0-1.1) Eosinophils # (Auto) 0.1x10^3/uL (0.0-0.7) Basophils # (Auto) 0.0x10^3/uL (0.0-0.2) Sodium Level 139mmol/L (136-145) Potassium Level 3.8mmol/L (3.5-5.1) Chloride Level 102mmol/L (98-107) Carbon Dioxide Level 29mmol/L (21-32) Anion Gap 8 (6-14) Blood Urea Nitrogen 10mg/dL (8-26) Creatinine 0.7mg/dL (0.7-1.3) Estimated GFR (Cockcroft-Gault) 120.9 Glucose Level 118mg/dL (70-99) Calcium Level 9.2mg/dL (8.5-10.1) Test 08/24/16 08:20 Glucose (Fingerstick) 94mg/dL (70-99) Medications Current Medications Neomycin/ Polymyxin/ Bacitracin 1 pkt 1 pkt 1X ONCE TP Last administered on 21:27; Start 08/22/16 at 21:15; Stop 08/22/16 at 21:16; Status DC Sodium Chloride (Iv Sodium Chloride 0.9% 1000ml Bag) 1,000 ml @ 1,000 mls/hr 1X ONCE IV Last administered on 08/22/16 22:15; Start 08/22/16 at 22:15; Stop 08/22/16 at 23:14; Status DC Ondansetron HCl (Zofran) 4 mg PRN Q8HRS PRN IV NAUSEA/VOMITING; Start 08/23/16 at 00:30; Stop 08/23/16 at 16:46; Status DC Acetaminophen (Tylenol) 650 mg PRN Q4HRS PRN PO FEVER; Start 08/23/16 at 00:30 ; Stop 08/23/16 at 16:45; Status DC Atorvastatin Calcium (Lipitor) 40 mg DAILY PO Last administered on 08/24/16 08 :27; Start 08/24/16 at 09:00 Gabapentin (Neurontin) 300 mg TID PO Last administered on 08/24/16 08:27; Start 08/23/16 at 14:00 Metformin HCl (Glucophage Xr) 500 mg DAILY PO Last administered on 08/24/16 08 :27; Start 08/24/16 at 09:00 Montelukast Sodium (Singulair) 10 mg DAILY PO Last administered on 08/24/16 08 :27; Start 08/23/16 at 11:00 Ondansetron HCl (Zofran Odt) 4 mg Q8HRS PO Last administered on 08/23/16 20:42 ; Start 08/23/16 at 14:00 Acetaminophen/ Butalbital/ Caffeine (Fioricet) 1 tab PRN Q6HRS PRN PO MIGRAINE HEADACHE; Start 08/23/16 at 11:00 Linagliptin 5 mg 5 mg DAILY PO Last administered on 08/24/16 08:27; Start at 11:00 Sodium Chloride (Iv Sodium Chloride 0.9% 1000ml Bag) 1,000 ml @ 75 mls/hr [id number] IV Last administered on 08/24/16 02:00; Start 08/23/16 at 11:00 Acetaminophen (Tylenol) 325 mg PRN Q6HRS PRN PO MILD PAIN / TEMP Last administered on 08/23/16 20:42; Start 08/23/16 at 11:00 Acetaminophen/ Hydrocodone Bitart (Lortab 5/325) 1 tab PRN Q6HRS PRN PO MODERATE TO SEVERE PAIN; Start 08/23/16 at 11:00 Hydralazine HCl (Apresoline) 10 mg PRN Q4HRS PRN IVP ELEVATED BP, SEE COMMENTS ; Start 08/23/16 at 11:00 Ondansetron HCl (Zofran) 4 mg PRN Q8HRS PRN IV NAUSEA/VOMITING; Start 08/23/16 at 11:00 Albuterol Sulfate (Ventolin Neb Soln) 2.5 mg PRN Q4HRS PRN NEB SHORTNESS OF BREATH; Start 08/23/16 at 11:00 Pantoprazole Sodium 40 mg 40 mg DAILYAC PO Last administered on 08/24/16 08:27 ; Start 08/23/16 at 11:00 Sodium Chloride (Iv Sodium Chloride 0.9% 1000ml Bag) 1,000 ml @ 75 mls/hr Q12HR IV ; Start 08/23/16 at 21:00; Stop 08/23/16 at 21:00; Status DC Alprazolam 0.5 mg 0.5 mg PRN Q8HRS PRN PO ANXIETY / AGITATION Last administered on 08/23/16 20:42; Start 08/23/16 at 14:00 Multivitamins/ Thiamine HCl/ Folic Acid/Sodium Chloride (Infuvite Adult/ Iv Sodium Chloride 0.9% 1000ml Bag) 1,011.2 ml @ 100 mls/ hr Q24H IV Last administered on 08/23/16 14:52; Start 08/23/16 at 15:00 Mirtazapine (Remeron) 7.5 mg QHS PO Last administered on 08/23/16 20:42; Start 08/23/16 at 21:00 Active Scripts Active Gabapentin 300 Mg Capsule 300 Mg PO TID Zofran Odt (Ondansetron) 4 Mg Tab.rapdis 1 Tab SL Q8HRS Fioricet 50-300-40 Mg Capsule (Butalb/Acetaminophen/Caffeine) 1 Each Capsule 1 Each PO Q6HRS PRN Reported Prozac (Fluoxetine Hcl) 20 Mg Capsule 1 Cap PO [id number] Atorvastatin Calcium 40 Mg Tablet PO DAILY Januvia (Sitagliptin Phosphate) 100 Mg Tablet 100 PO DAILY Montelukast Sodium Tablet (Montelukast Sodium) 10 Mg Tablet 10 PO DAILY Metformin Hcl Er (Metformin Hcl) 500 Mg Tab.er.24h 500 PO DAILY Vitals/I & O Vital Sign - Last 24 Hours 08/23/16 08/23/16 08/23/16 08/23/16 11:00 14:55 19:00 20:00 Temp 98.1 98.1 98.1 98.1 98.1 98.1 Pulse 67 65 70 Resp 16 16 18 B/P 133/89 139/88 123/81 Pulse Ox 97 99 97 O2 Delivery Room Air Room Air Room Air Room Air 08/23/16 08/24/16 08/24/16 23:00 03:00 07:25 Temp 98.3 98.1 98.0 98.3 98.1 98.0 Pulse 70 70 70 Resp 18 18 B/P 120/76 113/77 115/69 Pulse Ox 97 97 97 O2 Delivery Room Air Room Air Room Air Intake and Output 08/23/16 08/23/16 08/24/16 15:00 23:00 07:00 Intake Total 100 ml 500 ml Balance 100 ml 500 ml ALESSANDRO RUFF MD Aug 24, 2016 10:28
[2016-08-24 11:33] VITALS: BP 116/74
== END 2016-08-24 14:10 | disposition short-term general hospital (02) | DRG 881 ==
LOC: ER 20:37 → 6 SOUTH 08-23 00:24
PROVIDERS: ADMIT Internal Medicine; ATTEND Internal Medicine
DX: F32.9 Major depressive disorder, single episode, unspecified (principal); E87.1 Hypo-osmolality and hyponatremia; R45.851 Suicidal ideations; F84.5 Asperger's syndrome; D69.6 Thrombocytopenia, unspecified; E11.9 Type 2 diabetes mellitus without complications; F10.10 Alcohol abuse, uncomplicated; F41.9 Anxiety disorder, unspecified; Z90.49 Acquired absence of other specified parts of digestive tract; Z88.8 Allergy status to other drugs, medicaments and biological substances
CPT/HCPCS: 36415; 80048; 80053; 82947; 85027; 96360; 96361; G0480; G0481; J7030; Q0162; 99285-25

== ENCOUNTER 2016-09-11 21:43 | Inpatient (IN) | payer BC ==
[~2016-09-11] VITALS: Ht 177.8 cm; Wt 66.7 kg
[2016-09-11] MEDS: IV NORMAL SALINE 1000ML BAG 1,000 ML IV SCH (01:50)
[~2016-09-11 21:43] MED LIST changes: +ATOR40TA59 PO; +FLUO20CA16 PO; +GABA300C8 PO; +METF500T9 PO; +MONT10TA9 PO; +SITA100T PO
[2016-09-11] MEDS ORDERED: PYRIDOSTIGMINE BROMIDE 10 MG/2 ML AMPUL. IV ONE ×2 (22:00→22:30)
[2016-09-11] MEDS ORDERED: METRONIDAZOLE 500mg PREMIX 100 ML IV ONE (22:00)
[2016-09-11 22:08] LABS: BARBITURATES NEG (NEG); BASO # 0.1 x10^3/uL (0.0-0.2); BASO % 1 % (0-3); BENZODIAZEPINES POS (NEG); CANNABINOIDS NEG (NEG); COCAINE NEG (NEG); EOS % 3 % (0-3); HEMOGLOBIN 14.9 g/dL (13.0-17.5); LYMPH # 1.2 x10^3/uL (1.0-4.8); LYMPH % 27 % (24-48); MEAN CORPUSCULAR HEMOGLOBIN 31 pg (25-35); MEAN CORPUSCULAR HGB CONC 35 g/dL (31-37); MEAN CORPUSCULAR VOLUME 89 fL (79-100); METHADONE NEG (NEG); MONO % 8 % (0-9); NEUT % 62 % (31-73); OPIATES NEG (NEG); PHENCYCLIDINE NEG (NEG); PLATELET COUNT 89 x10^3/uL (140-400); RED BLOOD COUNT 4.86 x10^6/uL (4.30-5.70); RED CELL DISTRIBUTION WIDTH 14.5 % (11.5-14.5); WHITE BLOOD COUNT 4.5 x10^3/uL (4.0-11.0)
[2016-09-11 22:10] LABS: ETHANOL, URINE NEG (NEG)
--- NOTE | 2016-09-11 22:12 | PHYS DOC ---
Past Medical History Past Medical History: Anxiety, Depression, Diabetes-Type II, Other Additional Past Medical Histor: SEASONAL ALLERGIES, ASPERGERS, Past Surgical History: Appendectomy, Other Additional Past Surgical Histo: knee arthroscopy Alcohol Use: Heavy Drug Use: None Adult General Chief Complaint Chief Complaint: OVERDOSE HPI HPI This is a 46-year-old male who has a suicide attempt in which he took approximately 20 50 mg Benadryl tablets approximately an hour and 10 minutes prior to arrival. While in route, EMS states patient had some decrease in mental status. Patient is able to follow basic commands but is not alert and oriented at this time. Patient does have history of multiple suicide attempts in the past. He denies any specific complaints at this time. Review of Systems Review of Systems Constitutional: Denies fever or chills [] Eyes: Denies change in visual acuity, redness, or eye pain [] HENT: Denies nasal congestion or sore throat [] Respiratory: Denies cough or shortness of breath [] Cardiovascular: No additional information not addressed in HPI [] GI: Denies abdominal pain, nausea, vomiting, bloody stools or diarrhea [] : Denies dysuria or hematuria [] Musculoskeletal: Denies back pain or joint pain [] Integument: Denies rash or skin lesions [] Neurologic: Denies headache, focal weakness or sensory changes [] Endocrine: Denies polyuria or polydipsia [] Current Medications Current Medications Current Medications Medications (Trade) Dose Ordered Sig/Digna Start Time Stop Time Status Last Admin Dose Admin Metronidazole (FLAGYL 500Mmg PREMIX) 100 ml @ 100 mls/hr 1X ONCE 09/11/16 22:00 09/11/16 22:59 UNV Pyridostigmine [place] 10 mg 10 mg 1X ONCE 09/11/16 22:00 09/11/16 22:01 UNV Allergies Allergies Allergies Coded Allergies Type Severity Reaction Last Updated Verified prochlorperazine Allergy Intermediate 01/24/16 Yes Physical Exam Physical Exam Constitutional: Well developed, well nourished, no acute distress, mildly toxic in appearance. [] HENT: Normocephalic, atraumatic, bilateral external ears normal, oropharynx moist, no oral exudates, nose normal. [] Eyes: PERRLA, EOMI, conjunctiva normal, no discharge. [] Neck: Normal range of motion, no tenderness, supple, no stridor. [] Cardiovascular:Heart rate regular rhythm, no murmur [] Lungs & Thorax: Bilateral breath sounds clear to auscultation [] Abdomen: Bowel sounds normal, soft, no tenderness, no masses, no pulsatile masses. [] Skin: Warm, dry, no erythema, no rash. [] Back: No tenderness, no CVA tenderness. [] Extremities: No tenderness, no cyanosis, no clubbing, ROM intact, no edema. [] Neurologic: Alert and oriented X 1 (person), normal motor function, normal sensory function, no focal deficits noted. [] Psychologic: Affect normal, judgement normal, mood normal. [] Current Patient Data Vital Signs Vital Signs Date Time Temp Pulse Resp B/P Pulse Ox O2 Delivery O2 Flow Rate FiO2 09/11/16 22:03 112 35 212/112 98 Room Air 09/11/16 21:43 98.1 98.1 Lab Values Laboratory Tests Test 09/11/16 21:50 White Blood Count 4.5x10^3/uL (4.0-11.0) Red Blood Count 4.86x10^6/uL (4.30-5.70) Hemoglobin 14.9g/dL (13.0-17.5) Hematocrit 43.0% (39.0-53.0) Mean Corpuscular Volume 89fL (79-100) Mean Corpuscular Hemoglobin 31pg (25-35) Mean Corpuscular Hemoglobin Concent 35g/dL (31-37) Red Cell Distribution Width 14.5% (11.5-14.5) Platelet Count 89x10^3/uL (140-400) L Neutrophils (%) (Auto) 62% (31-73) Lymphocytes (%) (Auto) 27% (24-48) Monocytes (%) (Auto) 8% (0-9) Eosinophils (%) (Auto) 3% (0-3) Basophils (%) (Auto) 1% (0-3) Neutrophils # (Auto) 2.8x10^3uL (1.8-7.7) Lymphocytes # (Auto) 1.2x10^3/uL (1.0-4.8) Monocytes # (Auto) 0.4x10^3/uL (0.0-1.1) Eosinophils # (Auto) 0.1x10^3/uL (0.0-0.7) Basophils # (Auto) 0.1x10^3/uL (0.0-0.2) Platelet Estimate Decreased (ADEQUATE) Sodium Level 133mmol/L (136-145) L Potassium Level 3.8mmol/L (3.5-5.1) Chloride Level 94mmol/L (98-107) L Carbon Dioxide Level 28mmol/L (21-32) Anion Gap 11 (6-14) Blood Urea Nitrogen 11mg/dL (8-26) Creatinine 0.7mg/dL (0.7-1.3) Estimated GFR (Cockcroft-Gault) 120.9 Glucose Level 89mg/dL (70-99) Calcium Level 9.6mg/dL (8.5-10.1) Salicylates Level < 2.8mg/dL (2.8-20.0) L Salicylate Last Dose Date Salicylate Last Dose Time Urine Opiates Screen Neg (NEG) Urine Methadone Screen Neg (NEG) Acetaminophen Level < 2mcg/ml (10-30) L Acetaminophen Last Dose Date Acetaminophen Last Dose Time Urine Barbiturates Neg (NEG) Urine Phencyclidine Screen Neg (NEG) Urine Amphetamine/Methamphetamine Neg (NEG) Urine Benzodiazepines Screen Pos (NEG) Urine Cocaine Screen Neg (NEG) Urine Cannabinoids Screen Neg (NEG) Ethyl Alcohol Level < 10mg/dL (0-10) Urine Ethyl Alcohol Neg (NEG) Laboratory Tests 09/11/16 21:50 Laboratory Tests 09/11/16 21:50 EKG EKG EKG upon arrival interpreted by me shows a sinus rhythm with rate of 77 bpm. There are no acute ST findings seen. QRS interval is 98 ms. QT and QTC intervals are 380 and 432 ms respectively. This EKG does not meet STEMI criteria. Radiology/Procedures Radiology/Procedures Repeat EKG shows a sinus rhythm with rate of 99 bpm. There is a leftward axis. QRS interval is 102 ms. QT interval is 308 ms and QTc interval is 400 ms. This EKG does not meet STEMI criteria. Course & Med Decision Making Course & Med Decision Making Pertinent Labs and Imaging studies reviewed. (See chart for details) 46-year-old male who has a suspected 1 g diphenhydramine overdose in an attempt to commit suicide will be admitted to the ICU for further monitoring. Multiple EKGs were obtained. His tox screen was positive for benzos but no other illicit substance. Patient was given several liters of fluid, a dose of Ativan as well as a dose of pyridostigmine in an attempt to reverse any anticholinergic effect. He was observed in the department for multiple hours prior to admission and is still acutely altered and will be placed in the ICU for further observation and treatment. I discussed his case with the hospitalist, Dr. Sheldon , who agreed to admit the patient for further evaluation and treatment with fluids and Ativan ordered as needed for any seizure activity. Poison control was notified about the patient and agrees with this plan to admit and observe in the ICU. He was observed in the department for multiple hours with no decompensation. His vital signs remained stable. He was admitted to the ICU for further observation and treatment. Approximately 30 minutes of critical care time were used on this patient. Dragon Disclaimer Dragon Disclaimer This electronic medical record was generated, in whole or in part, using a voice recognition dictation system. Critical Care Time Critical care time was 30 minutes exclusive of procedures. Departure Departure Impression: Primary Impression: Diphenhydramine overdose Additional Impression: Suicidal overdose Disposition: ADMITTED INPATIENT Admitting Physician: Other Condition: CRITICAL Referrals: UNKNOWN PCP NAME (PCP) Problem Qualifiers JALYN CURTIS DO Sep 11, 2016 22:12
[2016-09-11 22:16] LABS: CALCIUM 9.6 mg/dL (8.5-10.1); CREATININE 0.7 mg/dL (0.7-1.3); GFR 120.9; POTASSIUM 3.8 mmol/L (3.5-5.1)
[2016-09-11 22:24] LABS: ETHANOL < 10 mg/dL (0-10)
[2016-09-11 22:29] LABS: PLT ESTIMATE DECREASED (ADEQUATE)
[2016-09-11] MEDS ORDERED: IV NORMAL SALINE 1000ML BAG 1,000 ML IV ONE ×2 (22:30→23:00)
[2016-09-11] MEDS ORDERED: LORAZEPAM 2 MG/ML VIAL. IV ONE (22:30)
[2016-09-11] MEDS ORDERED: LORAZEPAM 2 MG/ML VIAL. IV PRN (22:30)
[2016-09-11] MEDS ORDERED: ONDANSETRON PF 4 MG/2 ML VIAL. IV PRN (22:30)
[2016-09-12] VITALS (15 sets, daily range): BP systolic 111–176; BP diastolic 73–97
--- NOTE | 2016-09-12 00:34 | ACF ---
Admit Criteria Forms Admit Criteria Forms Admit Criteria Forms SUBSTANCE ABUSE Clinical Indications for Admission to Inpatient Care (Place 'X' for any and all applicable criteria): Admission is indicated due to ANY ONE of the following(1)(2)(3)(4)(5): [ ]I. Delirium due to alcohol or sedative A withdrawal B ( Also use Delirium Criteria as appropriate)1,6,7 [ ]II. Alcohol or sedative withdrawal with high-risk indicator as manifested by ALL of the following1,3,6,7 [ ]a) Signs of withdrawal as indicated by ANY ONE of the following: [ ]i) Heart rate greater than 100 beats per minute [ ]ii) Nausea or vomiting [ ]iii) Other physical signs of alcohol or sedative withdrawal [ ]iv) Tremor [ ](v) Increased perspiration [ ]b) Elevated risk due to a historical or comorbid factor as indicated by ANY ONE of the following: [ ]i) History of delirium due to alcohol or sedative withdrawal [ ]ii) History of repetitive seizures due to alcohol or sedative withdrawal C [ ]iii) Intrinsic seizure disorder (epilepsy) [ ]iv) [ ]v) Comorbid medical condition that can be dangerously destabilized by alcohol or sedative withdrawal (eg, severe cardiac disease) [ ]III. Severe alcohol or sedative withdrawal that is unmanageable at lower level of care, as manifested by ALL of the following1,3,6,7 [ ]a) Marked signs of withdrawal as indicated by ANY ONE of the following: [ ]i) Heart rate greater than 120 beats per minute [ ]ii) Vomiting [ ]iii) Grossly visible tremor [ ]iv) Profuse perspiration [ ]v) Temperature greater than 38.3 degrees C (101 degrees F) [ ]vi) Other marked physical signs of alcohol or sedative withdrawal [ ]b) Signs of withdrawal which require inpatient treatment as indicated by ANY ONE of the following: [ ]i) Inadequate response to pharmacotherapy in emergency department or other appropriate lower level of care [ ]ii) Lower level of care not feasible or appropriate (eg, unavailable or inappropriate to patient condition or treatment history) [ ]IV. Severely complicated opioid withdrawal that requires ssxakr-vol-mcehe care as manifested by ALL of the following 1,4,7,11 [ ]a) Vomiting or diarrhea due to opioid withdrawal [ ]b) Marked dehydration or electrolyte abnormality that cannot be corrected (to near normal) in an emergency department or other ambulatory setting (eg, serum K<2.5 mEq/L , serum Na <130 mEq/L [ ]V. Acute toxicity or instability from substance use requiring inpatient care (eg, altered mental status, respiratory depression) that has had inadequate response to, or is judged inappropriate for, treatment at lower level of care (eg, emergency department, observation care) [X]. Other inpatient medical or psychiatric care is needed due to risk or comorbidity as indicated by ALL of the following(18): [X]a) Treatment is needed because of patient risk due to ANY ONE of the following: [ ]i) Medical condition (eg, severe cardiac disease) that requires 24-hour monitoring and treatment due to danger of destabilization by alcohol or sedative withdrawal is present [X]ii) Imminent danger to self is present due to ANY ONE of the following(19)(20)(21): [ ]1) Imminent risk for recurrence of Suicide attempt or act of serious Harm to self is present as indicated by ALL of the following: [ ]A. There has been very recent Suicide attempt or deliberate act of serious Harm to self. [ ]B. There has not been Sufficient relief of the factors that precipitated the attempt or act. [X]2) Current plan for suicide or serious Harm to self is present. [ ]3) Command auditory hallucinations for suicide or serious Harm to self are present. [ ]4) Patient has persistent Thoughts of suicide or serious Harm to self that cannot be adequately monitored at lower level of care due to ANY ONE of the following[E]: [ ]A. Insufficient behavioral care is available to meet patient needs (such as required provider or lower level facility is not available). [ ]B. Patient characteristics such as high impulsivity or unreliability are present. [ ]C. Environment does not support recovery. [ ]D. Ready access to lethal means [ ]iii) Imminent danger to others is present due to ANY ONE of the following(19)(23)(24): [ ]1) Imminent risk for recurrence of attempt to seriously Harm another is present as indicated by ALL of the following: [ ]A. There has been very recent attempt to seriously Harm another. [ ]B. There has not been Sufficient relief of factors that precipitated the attempt or act. [ ]2) Current plan for homicide or serious Harm to another is present. [ ]3) Command auditory hallucinations or paranoid delusions contributing to risk for homicide or serious Harm to another are present. [ ]4) Patient has persistent thoughts of homicide or serious Harm to another that cannot be adequately monitored at lower level of care because of ANY ONE of the following[E]: [ ]A. Insufficient behavioral care is available to meet patient needs (such as required provider or lower level facility is not available). [ ]B. High impulsivity or unreliability is present. [ ]C. Environment does not support recovery. [ ]D. Ready access to lethal means [ ]iv) Severe dysfunction in daily living related to substance use disorder as indicated by ANY ONE of the following(33): [ ]a) Extreme deterioration in social interactions (eg , threatening behaviors with little or no provocation) [ ]b) Complete withdrawal from all social interactions [ ]c) Complete neglect of self-care with associated impairment in physical status [ ]d) Extreme disruption in vegetative function (eg, life-sustaining functions such as eating) [ ]e) Complete inability to maintain any appropriate aspect of personal responsibility in any adult roles (eg, occupational, parental ) [ ]v) Other emotional, behavioral, or cognitive symptoms of sufficient severity to preclude ability to engage in recovery without 24-hour monitoring and treatment are present. [ ]vi) Patient requires monitoring due to substance use in combination with medical, psychiatric, or environmental factors that prevent adequate management at lower level of care as indicated by ALL of the following: [ ]1) Significant substance use effects, medical conditions, or psychiatric comorbidities are present as indicated by ANY ONE of the following [ ]A. Substance toxicity or withdrawal requires medical monitoring. [ ]B. Medical comorbidity requires medical monitoring for destabilization due to alcohol or sedative withdrawal. [ ]C. Emotional, behavioral, or cognitive symptoms of sufficient severity to limit or preclude ability to engage in treatment are present. [ ]2) Conditions, barriers, or environmental factors preventing treatment at lower level of care are present as indicated by ANY ONE of the following: [ ]A. Psychiatric comorbidity or opposition to treatment requires 24-hour setting to ensure adherence with medical treatment or adequate motivating interventions. [ ]B. Severe behavioral problems (eg, escalating relapse behaviors, acute psychiatric or substance use crisis, inability to recognize signs and symptoms of relapse ) require 24-hour setting for relapse prevention.[F] [ ]C. Living environment outside of 24-hour setting prevents recovery (eg, abuse, victimization, patient inability to cope). [ ]b Treatment situation and needs are appropriate for inpatient level ( instead of using lower level of care) as indicated by ANY ONE of the following( 25)(26)(27): [ ]i) Patient is unwilling to participate voluntarily and requires treatment (eg, legal commitment) in involuntary unit.(23) [ ]ii) Voluntary treatment at lower level is not feasible (eg, lower level care unavailable or inappropriate for patient condition). [ ]iii) Physical restraint, seclusion, or other involuntary control is needed (eg, actively violent patient for whom treatment in an involuntary unit is deemed necessary in accord with applicable medical and legal criteria).(23) [ ]iv) [id number] medical or nursing care to address symptoms and initiate interventions is required; specific need is identified. Extended stay beyond goal length of stay may be needed for: [ ]a) Onset of delirium [ ]b) Recurrent seizures [ ]c) Persistent severe alcohol or sedative withdrawal [ ]d) Persistent dangerous behavior The original [employer] content created by [employer] has been revised. The portions of the content which have been revised are identified through the use of italic text or in bold, and [employer] has neither reviewed nor approved the modified material. All other unmodified content is copyright [employer] Please see references footnoted in the original [employer] edition 2016 MARCELINA BAIRD Sep 12, 2016 00:34
[2016-09-12] MEDS: IV NORMAL SALINE 1000ML BAG 1,000 ML IV SCH ×3 (01:50→16:31)
[2016-09-12] MEDS ORDERED: hydrALAZINE 20 MG/ML VIAL. IVP PRN (02:00)
[2016-09-12 05:59] LABS: BASO % 0 % (0-3); EOS % 0 % (0-3); HEMOGLOBIN 13.6 g/dL (13.0-17.5); LYMPH # 0.3 x10^3/uL (1.0-4.8); LYMPH % 9 % (24-48); MEAN CORPUSCULAR HEMOGLOBIN 30 pg (25-35); MEAN CORPUSCULAR HGB CONC 35 g/dL (31-37); MEAN CORPUSCULAR VOLUME 87 fL (79-100); MONO % 6 % (0-9); NEUT % 85 % (31-73); PLATELET COUNT 70 x10^3/uL (140-400); RED BLOOD COUNT 4.51 x10^6/uL (4.30-5.70); RED CELL DISTRIBUTION WIDTH 14.4 % (11.5-14.5); WHITE BLOOD COUNT 3.8 x10^3/uL (4.0-11.0)
[2016-09-12 06:32] LABS: CALCIUM 8.5 mg/dL (8.5-10.1); CREATININE 0.6 mg/dL (0.7-1.3); GFR 144.4; POTASSIUM 3.9 mmol/L (3.5-5.1)
--- NOTE | 2016-09-12 07:14 | EKG ---
[facility] [address] [place] [address] Test Date: 2016-09-11 Test Time: 22:29:22 Pat Name: ANYI BEST Department: Room: 115 1 Gender: M Facility Supervisor: : 1970 Requested By: JALYN CURTIS Order Number: [id number] Reading MD: Daniella Goodman Measurements Intervals [place] Rate: 99 P: -123 MA: 110 QRS: -24 QRSD: 102 T: 75 QT: 308 QTc: 400 Interpretive Statements SINUS RHYTHM LEFTWARD AXIS LVH WITH REPOLARIZATION ABNORMALITY ABNORMAL ECG Electronically Signed On 09-12-2016 19:22:56 CDT by Daniella Goodman
[2016-09-12 07:33] LABS: PLT ESTIMATE DECREASED (ADEQUATE)
[2016-09-12] MEDS ORDERED: CIPROFLOXACIN 400MG PREMIX 200 ML IV SCH (09:00)
--- NOTE | 2016-09-12 23:45 | HP ---
ADMIT DATE: 09/12/2016 CHIEF COMPLAINT: Ingestion. HISTORY OF PRESENT ILLNESS: The patient is a pleasant 46-year-old male who has Asperger's. He basically took 20 of 50 mg Benadryl in a suicide gesture. He presented with agitation and weakness, tachycardia. He has been admitted to the ICU where he is on one-to-one observation. PAST MEDICAL HISTORY: Previous depression, Asperger's, suicide attempts, anxiety, allergic rhinitis, appendectomy and knee arthroscopy. ALLERGIES: PROCHLORPERAZINE. FAMILY HISTORY: Hypertension. SOCIAL HISTORY: He lives at home. He does not drink, smoke or take drugs. MEDICATIONS: Reviewed, please refer to the MRAD. REVIEW OF SYSTEMS: Unobtainable. The patient is too confused and tired. PHYSICAL EXAMINATION: VITAL SIGNS: Temperature afebrile, pulse 68, respirations 18, blood pressure 113/70. GENERAL: He is sleeping. He does not really want to wake up. HEART: Distant S1, S2. LUNGS: Clear. ABDOMEN: Soft, positive bowel sounds. EXTREMITIES: No edema. SKIN: No rashes. ENDOCRINE: No thyromegaly. LYMPHATICS: No cervical nodes. HEMATOPOIETIC: No bruising. LABORATORY DATA: White count 4, hemoglobin 14.9, platelets 89. Electrolytes: Sodium 133, potassium 3.8, chloride 94, bicarbonate 28, BUN 11, creatinine 0.7, glucose 191. CT of the brain is negative, although he has chronic cerebral asymmetry. ASSESSMENT AND PLAN: Suicidal ideation and attempt with Benadryl. The patient has been admitted to the ICU, we had a PAT team look at him. They do not feel he needs inpatient Psychiatry. For now, we are going to monitor him in the ICU. We are going to try to resume his home meds tomorrow morning. Suspect he will need outpatient psychiatric systems, maybe even long-term care. PROGNOSIS: Good. GERRY CRAWFORD DO DR: RASHID/chapin JOB#: [id number] / [id number]
[2016-09-13 03:51] VITALS: BP 133/87
[2016-09-13 07:22] VITALS: BP 133/87
[2016-09-13 11:36] VITALS: BP 146/55
--- NOTE | 2016-09-13 12:57 | PDOC3 ---
Discharge Summary [facility] Date of Admission: Sep 11, 2016 Discharge Date: Sep 13, 2016 Admitting Diagnosis Suicidal ideation depression attempt with Benadryl Problems: Final Diagnosis Brief Hospital Course Mr. Escalante is a 46 old M, severe depression, was sent post taking benadryl for suicide. Pt is stable, admits very depressed now PAT evaluated, pt [place]OT need inpt psych. pt has psych resource at home, willing to follow. dc home dc time 35min HEART: Distant S1, S2. LUNGS: Clear. ABDOMEN: Soft, positive bowel sounds. EXTREMITIES: No edema. SKIN: No rashes. ENDOCRINE: No thyromegaly. LYMPHATICS: No cervical nodes. HEMATOPOIETIC: No bruising. Problems: Disposition home CONDITION AT DISCHARGE: Improved Diet regular Scheduled Atorvastatin Calcium (Atorvastatin Calcium) PO DAILY (Reported) Fluoxetine Hcl (Prozac) 1 CAP PO DAILYWBKFT (Reported) Gabapentin (Gabapentin) 300 MG PO TID Metformin Hcl (Metformin Hcl Er) 500 PO DAILY (Reported) Montelukast Sodium (Montelukast Sodium Tablet) 10 PO DAILY (Reported) Ondansetron (Zofran Odt) 1 TAB SL Q8HRS Sitagliptin Phosphate (Januvia) 100 PO DAILY (Reported) Scheduled PRN Butalb/Acetaminophen/Caffeine (Fioricet 50-300-40 Mg Capsule) 1 EACH PO Q6HRS PRN PRN MIGRAINE HEADACHE Follow Up psych VIDA Samuels MD Sep 13, 2016 12:57
[2016-09-13 15:47] VITALS: BP 137/90
== END 2016-09-13 17:30 | disposition home or self-care (01) | DRG 918 ==
LOC: ER 21:43 → 1 WEST ICU 22:16 → 6 SOUTH 09-12 13:55
PROVIDERS: ADMIT Internal Medicine Hematology & Oncology; ATTEND Internal Medicine Hematology & Oncology
DX: T45.0X2A Poisoning by antiallergic and antiemetic drugs, intentional self-harm, initial encounter (principal); F84.5 Asperger's syndrome; J30.2 Other seasonal allergic rhinitis; F32.9 Major depressive disorder, single episode, unspecified; F41.9 Anxiety disorder, unspecified; E11.9 Type 2 diabetes mellitus without complications; T45.0X1A Poisoning by antiallergic and antiemetic drugs, accidental (unintentional), initial encounter; T50.902A Poisoning by unspecified drugs, medicaments and biological substances, intentional self-harm, initial encounter; Z90.49 Acquired absence of other specified parts of digestive tract; Z82.49 Family history of ischemic heart disease and other diseases of the circulatory system; Y92.89 Other specified places as the place of occurrence of the external cause; Z88.8 Allergy status to other drugs, medicaments and biological substances
CPT/HCPCS: 36415; 80048; 82947; 85007; 85027; 87641; 93005; 96361; 96374; 96375; G0480; G0481; G6038; J0360; J2060; J7030; 80196; 99285-25

== ENCOUNTER 2018-03-11 14:02 | Inpatient (IN) | payer BC, OTHER ==
[~2018-03-11] VITALS: Ht 167.6 cm; Wt 70.5 kg
--- NOTE | 2018-03-11 14:57 | PHYS DOC ---
Past Medical History Past Medical History: Anxiety, Depression, Diabetes-Type II, High Cholesterol, Hypertension, Other Additional Past Medical Histor: SEASONAL ALLERGIES, ASPERGERS Past Surgical History: Appendectomy, Other Additional Past Surgical Histo: knee arthroscopy Alcohol Use: Heavy Drug Use: None Adult General Chief Complaint Chief Complaint: FATIGUE HPI HPI 47-year-old male presents to ER for complaints of generalized weakness and fatigue. Patient reports over the past few days he has had intermittent shortness of air denying any chest pain or palpitations. Patient reports he was seen by his primary care physician last week and started on antibiotics reports symptoms have not improved. Patient denies fever or chills. Patient states he has had generalized body aches, sinus drainage, dry cough, sore throat, and bilateral earache. Patient reports others at work have similar symptoms. Patient denies any recent travel. Patient reports he has had good appetite. Patient states he is diabetic but does not check his blood sugars and uses both insulin and takes pills. Patient reports history of anxiety taking daily prescribed medications with previous SI denying any suicidal ideations at this time reporting his medications have improved his anxiety. Review of Systems Review of Systems Constitutional: Denies fever or chills [] Eyes: Denies change in visual acuity, redness, or eye pain [] HENT: Reports sinus drainage and congestion, sore throat, and bilateral earache Respiratory: Reports intermittent dry cough and shortness of air. Cardiovascular: Denies chest pain or palpitations GI: Denies abdominal pain, nausea, vomiting, bloody stools or diarrhea [] : Denies dysuria or hematuria [] Musculoskeletal: Denies back pain. Reports generalized body aches Integument: Denies rash, swelling, or skin lesions [] Neurologic: Denies headache, focal weakness or sensory changes [] Endocrine: Denies polyuria or polydipsia [] All other systems were reviewed and found to be within normal limits, except as documented in this note. Allergies Allergies Allergies Coded Allergies Type Severity Reaction Last Updated Verified prochlorperazine Allergy Intermediate 01/24/16 Yes Physical Exam Physical Exam Constitutional: Well developed, well nourished, no acute distress, non-toxic appearance. Clear speech HENT: Normocephalic, atraumatic, bilateral ears normal, mucous membranes moist/ pale, no oral exudates, nose normal. [] Eyes: PERRLA, conjunctiva pale, no discharge. [] Neck: Normal range of motion, no tenderness, supple, no gross adenopathy Cardiovascular:Heart rate regular rhythm, no murmur [] Lungs & Thorax: Bilateral breath sounds clear to auscultation. Resp. equal/ nonlabored Abdomen: Bowel sounds normal, soft, no tenderness, no masses, no pulsatile masses. [] Skin: Cool/pale, dry, no erythema, no rash. Back: No tenderness, no CVA tenderness. [] Extremities: No tenderness, no cyanosis, no clubbing, ROM intact, no edema. [] Neurologic: Alert and oriented X 3, normal motor function, normal sensory function, no focal deficits noted. [] Psychologic: Affect normal, judgement normal, mood normal. Denies SI [] Rectal exam was complete with Juan José RN at bedside for Hand Slitter No rash/erythema/lesions or external/internal hemorrhoids. No gross blood on exam. No stool impaction Current Patient Data Vital Signs Vital Signs Date Time Temp Pulse Resp B/P (MAP) Pulse Ox O2 Delivery O2 Flow Rate FiO2 03/11/18 14:08 98.3 84 18 111/62 (78) 100 Room Air 98.3 Lab Values Laboratory Tests Test 03/11/18 15:18 03/11/18 16:10 White Blood Count 2.8 x10^3/uL (4.0-11.0) L Red Blood Count 2.55 x10^6/uL (4.30-5.70) L Hemoglobin 5.6 g/dL (13.0-17.5) *L Hematocrit 17.0 % (39.0-53.0) *L Mean Corpuscular Volume 66 fL (79-100) L Mean Corpuscular Hemoglobin 22 pg (25-35) L Mean Corpuscular Hemoglobin Concent 33 g/dL (31-37) Red Cell Distribution Width 22.0 % (11.5-14.5) H Platelet Count 126 x10^3/uL (140-400) L Neutrophils (%) (Auto) 67 % (31-73) Lymphocytes (%) (Auto) 19 % (24-48) L Monocytes (%) (Auto) 11 % (0-9) H Eosinophils (%) (Auto) 2 % (0-3) Basophils (%) (Auto) 1 % (0-3) Neutrophils # (Auto) 1.9 x10^3uL (1.8-7.7) Lymphocytes # (Auto) 0.5 x10^3/uL (1.0-4.8) L Monocytes # (Auto) 0.3 x10^3/uL (0.0-1.1) Eosinophils # (Auto) 0.1 x10^3/uL (0.0-0.7) Basophils # (Auto) 0.0 x10^3/uL (0.0-0.2) Platelet Estimate Decreased (ADEQUATE) Polychromasia Slight Hypochromasia Mod Poikilocytosis Slight Anisocytosis Mod Microcytosis Mod Ovalocytes Few Prothrombin Time 14.4 SEC (11.7-14.0) H Prothrombin Time INR 1.2 (0.8-1.1) H PTT 25 SEC (24-38) Sodium Level 133 mmol/L (136-145) L Potassium Level 4.1 mmol/L (3.5-5.1) Chloride Level 98 mmol/L (98-107) Carbon Dioxide Level 25 mmol/L (21-32) Anion Gap 10 (6-14) Blood Urea Nitrogen 12 mg/dL (8-26) Creatinine 0.8 mg/dL (0.7-1.3) Estimated GFR (Cockcroft-Gault) 103.2 BUN/Creatinine Ratio 15 (6-20) Glucose Level 251 mg/dL (70-99) H Calcium Level 8.7 mg/dL (8.5-10.1) Magnesium Level 2.2 mg/dL (1.8-2.4) Total Bilirubin 0.6 mg/dL (0.2-1.0) Aspartate Amino Transferase (AST) 19 U/L (15-37) Alanine Aminotransferase (ALT) 31 U/L (16-63) Alkaline Phosphatase 82 U/L (46-116) Troponin I Quantitative < 0.017 ng/mL (0.000-0.055) Total Protein 6.7 g/dL (6.4-8.2) Albumin 3.7 g/dL (3.4-5.0) Albumin/Globulin Ratio 1.2 (1.0-1.7) Salicylates Level < 2.8 mg/dL (2.8-20.0) L Salicylate Last Dose Date Unknown Salicylate Last Dose Time Unknown Ethyl Alcohol Level < 10 mg/dL (0-10) Stool Occult Blood Negative (NEG) Laboratory Tests 03/11/18 15:18 Laboratory Tests 03/11/18 15:18 EKG EKG [] Radiology/Procedures Radiology/Procedures [] Course & Med Decision Making Course & Med Decision Making Pertinent Labs and Imaging studies reviewed. (See chart for details) Pt was evaluated in ER for c/o intermittent dyspnea, generalized weakness, and on exam found pt to be pale in color with no past hx of anemia/GI bleeds. Pt was found to have H&H 5.6/17.0 and with his sxs he was T&C and 2 units PRBCs were ordered for transfusion. Pt had neg. fecal occult test. Pt's case and plan of care was discussed with Dr. Lambert who wanted chest xray ordered to r/o acute process. Dragon Disclaimer Dragon Disclaimer This electronic medical record was generated, in whole or in part, using a voice recognition dictation system. Departure Departure Impression: Primary Impression: Low hemoglobin and low hematocrit Additional Impressions: Generalized weakness Dyspnea Disposition: ADMITTED INPATIENT Admitting Physician: Other (Dr. Lindsey) Referrals: UNKNOWN PCP NAME (PCP) Problem Qualifiers LONNIE KERNS APRN Mar 11, 2018 14:57
--- NOTE | 2018-03-11 15:07 | EKG ---
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
[2018-03-11 15:42] LABS: BASO % 1 % (0-3); EOS # 0.1 x10^3/uL (0.0-0.7); EOS % 2 % (0-3); LYMPH # 0.5 x10^3/uL (1.0-4.8); LYMPH % 19 % (24-48); MEAN CORPUSCULAR HEMOGLOBIN 22 pg (25-35); MEAN CORPUSCULAR HGB CONC 33 g/dL (31-37); MEAN CORPUSCULAR VOLUME 66 fL (79-100); MONO # 0.3 x10^3/uL (0.0-1.1); MONO % 11 % (0-9); NEUT # 1.9 x10^3uL (1.8-7.7); NEUT % 67 % (31-73); PLATELET COUNT 126 x10^3/uL (140-400); RED BLOOD COUNT 2.55 x10^6/uL (4.30-5.70); WHITE BLOOD COUNT 2.8 x10^3/uL (4.0-11.0)
[2018-03-11 15:48] LABS: HEMOGLOBIN 5.6 g/dL (13.0-17.5)
[2018-03-11 15:55] LABS: CALCIUM 8.7 mg/dL (8.5-10.1); CREATININE 0.8 mg/dL (0.7-1.3); GFR 103.2; POTASSIUM 4.1 mmol/L (3.5-5.1)
[2018-03-11 16:02] LABS: ALBUMIN 3.7 g/dL (3.4-5.0); ALBUMIN/GLOBULIN RATIO 1.2 (1.0-1.7); MAGNESIUM 2.2 mg/dL (1.8-2.4); TOTAL BILIRUBIN 0.6 mg/dL (0.2-1.0); TOTAL PROTEIN 6.7 g/dL (6.4-8.2)
[2018-03-11 16:12] LABS: ANISOCYTOSIS MOD; HYPOCHROMIA MOD; MICROCYTOSIS MOD; OVALOCYTES FEW; PLT ESTIMATE DECREASED (ADEQUATE); POIKILOCYTOSIS SLIGHT; PROTHROMBIN TIME PATIENT 14.4 SEC (11.7-14.0)
[2018-03-11 16:13] LABS: POLYCHROMASIA SLIGHT
[2018-03-11 16:26] LABS: FECAL OB PT NEGATIVE (NEG)
[2018-03-11 16:29] LABS: ETHANOL < 10 mg/dL (0-10); SALIC < 2.8 mg/dL (2.8-20.0)
[2018-03-11 17:39] VITALS: BP 129/76
[2018-03-11 18:00] VITALS: BP 142/77
[2018-03-11] MEDS ORDERED: IV NORMAL SALINE 500ML BAG 500 ML IV ONE (18:00)
[2018-03-11 18:42] VITALS: BP 144/76
[2018-03-11] MEDS ORDERED: IOHEXOL 300 MG/ML 100ML VIAL. IV ONE (19:00)
[2018-03-11] MEDS ORDERED: CONTRAST GIVEN. MC PRN (19:00)
[2018-03-11] MEDS ORDERED: INSU100I13 SQ (19:27)
[2018-03-11] MEDS ORDERED: FLUO20CA8 (19:27)
[2018-03-11] MEDS ORDERED: LORA10TA3 (19:27)
[2018-03-11] MEDS ORDERED: LEVO5TAB2 (19:27)
[2018-03-11] MEDS ORDERED: DEXTROSE 50% 25 GM / 50ML DISP.SYRIN. IV PRN (19:45)
[2018-03-11 19:48] VITALS: BP 124/76
[2018-03-11] MEDS ORDERED: BUTALB/APAP/CAFEIN 50/325/40MG TABLET. PO PRN (20:00)
[2018-03-11] MEDS ORDERED: ONDANSETRON ODT 4 MG TAB.RAPDIS. PO PRN (20:00)
[2018-03-11] MEDS ORDERED: INSULIN GLARGINE 300 UNITS/3 ML INSULN.PEN. SQ SCH (21:00)
--- NOTE | 2018-03-11 21:14 | RAD ---
CHEST AP ONLY History: FATIGUE, WEAKNESS. Comparison: July 09, 2016 image, but no report is available. Heart size: Within normal limits. Tanisha/mediastinum: Within normal limits Lungs: No focal airspace consolidation. Pleura: No evidence of pleural effusion. Pneumothorax: None visualized Bones: Regional skeleton appears grossly intact. Miscellaneous: None Impression: No acute radiographic findings. Electronically signed by: Gee Sales MD (03/11/2018 9:10 PM) [facility]
[2018-03-11 21:32] LABS: HEMATOCRIT 17.8 % (39.0-53.0); HEMOGLOBIN 5.7 g/dL (13.0-17.5)
[2018-03-11] MEDS: GABAPENTIN 300 MG CAPSULE. PO SCH (21:51)
[2018-03-11] MEDS: IV NORMAL SALINE 1000ML BAG 1,000 ML IV SCH (21:52)
[2018-03-11] MEDS: MONTELUKAST SODIUM 10 MG TABLET. PO SCH (21:52)
[2018-03-11] MEDS: ATORVASTATIN CALCIUM 40 MG TABLET. PO SCH (21:52)
[2018-03-11] MEDS: FLUoxetine HCL 20 MG CAPSULE PO SCH (21:52)
[2018-03-11 22:23] LABS: HEMOGLOBIN 5.6 g/dL (13.0-17.5)
[2018-03-11 22:24] LABS: HEMATOCRIT 17.4 % (39.0-53.0)
[2018-03-11 23:47] VITALS: BP 140/81
[2018-03-12] VITALS (15 sets, daily range): BP systolic 109–130; BP diastolic 62–76
[2018-03-12] MEDS: INSULIN LISPRO 300 UNITS/3 ML INSULN.PEN. SQ SCH ×3 (08:00→18:01)
[2018-03-12 08:01] LABS: BASO % 1 % (0-3); EOS # 0.1 x10^3/uL (0.0-0.7); EOS % 3 % (0-3); HEMATOCRIT 24.1 % (39.0-53.0); HEMOGLOBIN 7.8 g/dL (13.0-17.5); LYMPH # 0.5 x10^3/uL (1.0-4.8); LYMPH % 25 % (24-48); MEAN CORPUSCULAR HEMOGLOBIN 24 pg (25-35); MEAN CORPUSCULAR HGB CONC 32 g/dL (31-37); MEAN CORPUSCULAR VOLUME 75 fL (79-100); MONO # 0.3 x10^3/uL (0.0-1.1); MONO % 11 % (0-9); NEUT # 1.3 x10^3uL (1.8-7.7); NEUT % 60 % (31-73); PLATELET COUNT 86 x10^3/uL (140-400); RED BLOOD COUNT 3.22 x10^6/uL (4.30-5.70); RED CELL DISTRIBUTION WIDTH 24.9 % (11.5-14.5); WHITE BLOOD COUNT 2.2 x10^3/uL (4.0-11.0)
[2018-03-12 08:09] LABS: CALCIUM 8.2 mg/dL (8.5-10.1); CREATININE 0.9 mg/dL (0.7-1.3); GFR 90.1; POTASSIUM 4.2 mmol/L (3.5-5.1)
--- NOTE | 2018-03-12 08:55 | RAD ---
Examination: CT of the abdomen pelvis with IV contrast HISTORY: History of low hemoglobin COMPARISON: None available TECHNIQUE: Axial CT images of the abdomen pelvis were performed with IV contrast. Coronal and sagittal reformats are performed Exposure: One or more of the following individualized dose reduction techniques were utilized for this examination: 1. Automated exposure control 2. Adjustment of the mA and/or kV according to patient size 3. Use of iterative reconstruction technique. FINDINGS: Minimal bibasilar lung atelectasis. No evidence of free air identified in the abdomen. There is faint nodular appearance of the liver parenchyma. Mild splenomegaly measuring 14.8 cm. The gallbladder is mildly distended. The stomach is mildly distended. The visualized pancreas grossly appears unremarkable. The small bowel is nondilated. The appendix is not identified. Feces and gas noted in the colon. Urinary bladder is mildly distended. The bilateral kidneys enhance symmetrically. No evidence of hydronephrosis. Mild aortic atherosclerosis. Mild degenerative changes lumbar spine. IMPRESSION: 1. No acute intra-abdominal findings. 2. Faint nodular appearance of the liver probably cirrhotic changes. Mild splenomegaly. Electronically signed by: Geovani Jones MD (03/12/2018 8:50 AM) [facility]
[2018-03-12] MEDS: GABAPENTIN 300 MG CAPSULE. PO SCH ×3 (09:00→20:58)
[2018-03-12] MEDS: IV NORMAL SALINE 1000ML BAG 1,000 ML IV SCH (09:05)
--- NOTE | 2018-03-12 11:14 | PDOC1 ---
History and Physical Date of Admission Date of Admission 03/11/18 Identification/Chief Complaint Chief Complaint fatigue/weakness Source Source: Chart review, Patient History of Present Illness History of Present Illness 47-year-old male presents to ER for complaints of generalized weakness and fatigue. Patient reports over the past few days he has had intermittent shortness of air denying any chest pain or palpitations. Patient reports he was seen by his primary care physician last week and started on antibiotics reports symptoms have not improved. Patient denies fever or chills. Patient states he has had generalized body aches, sinus drainage, dry cough, sore throat, and bilateral earache. Patient reports others at work have similar symptoms. Patient denies any recent travel. Patient reports he has had good appetite. Patient states he is diabetic but does not check his blood sugars and uses both insulin and takes pills. he used to drink heavy but state since diagnosed with diabetes last year has not been drinking at all, he is poor historian but denies being told he has liver problem in the past Patient reports history of anxiety taking daily prescribed medications with previous SI denying any suicidal ideations at this time reporting his medications have improved his anxiety. Past Medical History Cardiovascular: HTN, Hyperlipidemia CENTRAL NERVOUS SYSTEM: Periperal neuropathy GI: GERD Heme/Onc: Anemia NOS Psych: Anxiety, Depression, Other (Asperger) Rheumatologic: Other (knee problems) ENT: Allergic Rhinitis Endocrine: Diabetes Past Surgical History Past Surgical History: Appendectomy, Other (knee arthroscopy) Family History Family History: No Significant, Hypertension Social History Smoke: Quit ALCOHOL: occassional (use to drink ETOH heavily in the past) Drugs: None Current Problem List Problem List Problems Medical Problems: (1) Dyspnea Status: Acute (2) Generalized weakness Status: Acute (3) Low hemoglobin and low hematocrit Status: Acute Current Medications Current Medications Current Medications Medications (Trade) Dose Ordered Sig/Digna Start Time Stop Time Status Last Admin Dose Admin Acetaminophen/ Butalbital/ Caffeine (Fioricet) 1 tab PRN Q6HRS PRN 03/11/18 20:00 Atorvastatin Calcium (Lipitor) 40 mg HS 03/11/18 21:00 03/11/18 21:52 40 MG Dextrose (Dextrose 50%-Water Syringe) 12.5 gm PRN Q15MIN PRN 03/11/18 19:45 Fluoxetine HCl (PROzac) 20 mg DAILYWBKFT 03/12/18 08:00 Gabapentin (Neurontin) 300 mg TID 03/11/18 21:00 03/11/18 21:51 300 MG Info (CONTRAST GIVEN -- Rx MONITORING) 1 each PRN DAILY PRN 03/11/18 19:00 03/13/18 18:59 Insulin Glargine (Lantus) 5 units QHS 03/11/18 21:00 Insulin Human Lispro (HumaLOG) 0-5 UNITS TIDWMEALS 03/12/18 08:00 Iohexol (Omnipaque 300 Mg/ml) 75 ml 1X ONCE 03/11/18 19:00 03/11/18 19:01 DC Linagliptin (Tradjenta) 5 mg DAILY 03/12/18 09:00 Montelukast Sodium (Singulair) 10 mg QHS 03/11/18 21:00 03/11/18 21:52 10 MG Ondansetron HCl (Zofran Odt) 4 mg PRN Q8HRS PRN 03/11/18 20:00 Sodium Chloride 1,000 ml @ 75 mls/hr [id number] 03/11/18 19:45 03/12/18 09:05 75 MLS/HR Allergies Allergies Allergies Coded Allergies Type Severity Reaction Last Updated Verified prochlorperazine Allergy Intermediate 01/24/16 Yes ROS Review of System CONSTITUTIONAL: No fever or chills EYES: No recent changes SKIN: No rash or itching CARDIOVASCULAR: No chest pain, syncope, palpitations, or edema RESPIRATORY: No SOB or cough GASTROINTESTINAL: No nausea, vomiting or abdominal pain NEUROLOGICAL: No headaches + weakness ENDOCRINE: No cold or heat intolerance GENITOURINARY: No urgency or frequency of urination MUSCULOSKELETAL: No back pain or joint pain LYMPHATICS: No enlarged lymph nodes Physical Exam Physical Exam GEN.: No apparent distress. Alert and oriented. HEENT: Head is normocephalic, atraumatic NECK: Supple. LUNGS: Clear to auscultation. HEART: RRR, S1, S2 present. Peripheral pulses intact ABDOMEN: Soft, nontender. Positive bowel sounds. EXTREMITIES: Without any cyanosis. NEUROLOGIC: Normal speech, normal tone PSYCHIATRIC: Normal affect, normal mood. SKIN: No ulcerations Vitals Vitals Vital Signs Date Time Temp Pulse Resp B/P (MAP) Pulse Ox O2 Delivery O2 Flow Rate FiO2 03/12/18 07:34 96.6 86 20 117/76 (90) 99 Room Air 96.6 Labs Labs Laboratory Tests Test 03/11/18 15:18 03/11/18 16:10 03/11/18 21:00 03/11/18 21:13 White Blood Count 2.8 x10^3/uL (4.0-11.0) Red Blood Count 2.55 x10^6/uL (4.30-5.70) Hemoglobin 5.6 g/dL (13.0-17.5) 5.7 g/dL (13.0-17.5) Hematocrit 17.0 % (39.0-53.0) 17.8 % (39.0-53.0) Mean Corpuscular Volume 66 fL (79-100) Mean Corpuscular Hemoglobin 22 pg (25-35) Mean Corpuscular Hemoglobin Concent 33 g/dL (31-37) 32 g/dL (31-37) Red Cell Distribution Width 22.0 % (11.5-14.5) Platelet Count 126 x10^3/uL (140-400) Neutrophils (%) (Auto) 67 % (31-73) Lymphocytes (%) (Auto) 19 % (24-48) Monocytes (%) (Auto) 11 % (0-9) Eosinophils (%) (Auto) 2 % (0-3) Basophils (%) (Auto) 1 % (0-3) Neutrophils # (Auto) 1.9 x10^3uL (1.8-7.7) Lymphocytes # (Auto) 0.5 x10^3/uL (1.0-4.8) Monocytes # (Auto) 0.3 x10^3/uL (0.0-1.1) Eosinophils # (Auto) 0.1 x10^3/uL (0.0-0.7) Basophils # (Auto) 0.0 x10^3/uL (0.0-0.2) Platelet Estimate Decreased (ADEQUATE) Polychromasia Slight Hypochromasia Mod Poikilocytosis Slight Anisocytosis Mod Microcytosis Mod Ovalocytes Few Prothrombin Time 14.4 SEC (11.7-14.0) Prothromb Time International Ratio 1.2 (0.8-1.1) Activated Partial Thromboplast Time 25 SEC (24-38) Sodium Level 133 mmol/L (136-145) Potassium Level 4.1 mmol/L (3.5-5.1) Chloride Level 98 mmol/L (98-107) Carbon Dioxide Level 25 mmol/L (21-32) Anion Gap 10 (6-14) Blood Urea Nitrogen 12 mg/dL (8-26) Creatinine 0.8 mg/dL (0.7-1.3) Estimated GFR (Cockcroft-Gault) 103.2 BUN/Creatinine Ratio 15 (6-20) Glucose Level 251 mg/dL (70-99) Calcium Level 8.7 mg/dL (8.5-10.1) Magnesium Level 2.2 mg/dL (1.8-2.4) Total Bilirubin 0.6 mg/dL (0.2-1.0) Aspartate Amino Transf (AST/SGOT) 19 U/L (15-37) Alanine Aminotransferase (ALT/SGPT) 31 U/L (16-63) Alkaline Phosphatase 82 U/L (46-116) Troponin I Quantitative < 0.017 ng/mL (0.000-0.055) Total Protein 6.7 g/dL (6.4-8.2) Albumin 3.7 g/dL (3.4-5.0) Albumin/Globulin Ratio 1.2 (1.0-1.7) Salicylates Level < 2.8 mg/dL (2.8-20.0) Salicylate Last Dose Date Unknown Salicylate Last Dose Time Unknown Ethyl Alcohol Level < 10 mg/dL (0-10) Stool Occult Blood Negative (NEG) Glucose (Fingerstick) 131 mg/dL (70-99) Test 03/11/18 21:50 03/12/18 07:11 03/12/18 07:30 Hemoglobin 5.6 g/dL (13.0-17.5) 7.8 g/dL (13.0-17.5) Hematocrit 17.4 % (39.0-53.0) 24.1 % (39.0-53.0) Mean Corpuscular Hemoglobin Concent 32 g/dL (31-37) 32 g/dL (31-37) Glucose (Fingerstick) 125 mg/dL (70-99) White Blood Count 2.2 x10^3/uL (4.0-11.0) Red Blood Count 3.22 x10^6/uL (4.30-5.70) Mean Corpuscular Volume 75 fL (79-100) Mean Corpuscular Hemoglobin 24 pg (25-35) Red Cell Distribution Width 24.9 % (11.5-14.5) Platelet Count 86 x10^3/uL (140-400) Neutrophils (%) (Auto) 60 % (31-73) Lymphocytes (%) (Auto) 25 % (24-48) Monocytes (%) (Auto) 11 % (0-9) Eosinophils (%) (Auto) 3 % (0-3) Basophils (%) (Auto) 1 % (0-3) Neutrophils # (Auto) 1.3 x10^3uL (1.8-7.7) Lymphocytes # (Auto) 0.5 x10^3/uL (1.0-4.8) Monocytes # (Auto) 0.3 x10^3/uL (0.0-1.1) Eosinophils # (Auto) 0.1 x10^3/uL (0.0-0.7) Basophils # (Auto) 0.0 x10^3/uL (0.0-0.2) Sodium Level 137 mmol/L (136-145) Potassium Level 4.2 mmol/L (3.5-5.1) Chloride Level 103 mmol/L (98-107) Carbon Dioxide Level 25 mmol/L (21-32) Anion Gap 9 (6-14) Blood Urea Nitrogen 9 mg/dL (8-26) Creatinine 0.9 mg/dL (0.7-1.3) Estimated GFR (Cockcroft-Gault) 90.1 Glucose Level 117 mg/dL (70-99) Calcium Level 8.2 mg/dL (8.5-10.1) Laboratory Tests Test 03/11/18 15:18 03/11/18 16:10 03/11/18 21:00 03/11/18 21:13 White Blood Count 2.8 x10^3/uL (4.0-11.0) Red Blood Count 2.55 x10^6/uL (4.30-5.70) Hemoglobin 5.6 g/dL (13.0-17.5) 5.7 g/dL (13.0-17.5) Hematocrit 17.0 % (39.0-53.0) 17.8 % (39.0-53.0) Mean Corpuscular Volume 66 fL (79-100) Mean Corpuscular Hemoglobin 22 pg (25-35) Mean Corpuscular Hemoglobin Concent 33 g/dL (31-37) 32 g/dL (31-37) Red Cell Distribution Width 22.0 % (11.5-14.5) Platelet Count 126 x10^3/uL (140-400) Neutrophils (%) (Auto) 67 % (31-73) Lymphocytes (%) (Auto) 19 % (24-48) Monocytes (%) (Auto) 11 % (0-9) Eosinophils (%) (Auto) 2 % (0-3) Basophils (%) (Auto) 1 % (0-3) Neutrophils # (Auto) 1.9 x10^3uL (1.8-7.7) Lymphocytes # (Auto) 0.5 x10^3/uL (1.0-4.8) Monocytes # (Auto) 0.3 x10^3/uL (0.0-1.1) Eosinophils # (Auto) 0.1 x10^3/uL (0.0-0.7) Basophils # (Auto) 0.0 x10^3/uL (0.0-0.2) Platelet Estimate Decreased (ADEQUATE) Polychromasia Slight Hypochromasia Mod Poikilocytosis Slight Anisocytosis Mod Microcytosis Mod Ovalocytes Few Prothrombin Time 14.4 SEC (11.7-14.0) Prothromb Time International Ratio 1.2 (0.8-1.1) Activated Partial Thromboplast Time 25 SEC (24-38) Sodium Level 133 mmol/L (136-145) Potassium Level 4.1 mmol/L (3.5-5.1) Chloride Level 98 mmol/L (98-107) Carbon Dioxide Level 25 mmol/L (21-32) Anion Gap 10 (6-14) Blood Urea Nitrogen 12 mg/dL (8-26) Creatinine 0.8 mg/dL (0.7-1.3) Estimated GFR (Cockcroft-Gault) 103.2 BUN/Creatinine Ratio 15 (6-20) Glucose Level 251 mg/dL (70-99) Calcium Level 8.7 mg/dL (8.5-10.1) Magnesium Level 2.2 mg/dL (1.8-2.4) Total Bilirubin 0.6 mg/dL (0.2-1.0) Aspartate Amino Transf (AST/SGOT) 19 U/L (15-37) Alanine Aminotransferase (ALT/SGPT) 31 U/L (16-63) Alkaline Phosphatase 82 U/L (46-116) Troponin I Quantitative < 0.017 ng/mL (0.000-0.055) Total Protein 6.7 g/dL (6.4-8.2) Albumin 3.7 g/dL (3.4-5.0) Albumin/Globulin Ratio 1.2 (1.0-1.7) Salicylates Level < 2.8 mg/dL (2.8-20.0) Salicylate Last Dose Date Unknown Salicylate Last Dose Time Unknown Ethyl Alcohol Level < 10 mg/dL (0-10) Stool Occult Blood Negative (NEG) Glucose (Fingerstick) 131 mg/dL (70-99) Test 03/11/18 21:50 03/12/18 07:11 03/12/18 07:30 Hemoglobin 5.6 g/dL (13.0-17.5) 7.8 g/dL (13.0-17.5) Hematocrit 17.4 % (39.0-53.0) 24.1 % (39.0-53.0) Mean Corpuscular Hemoglobin Concent 32 g/dL (31-37) 32 g/dL (31-37) Glucose (Fingerstick) 125 mg/dL (70-99) White Blood Count 2.2 x10^3/uL (4.0-11.0) Red Blood Count 3.22 x10^6/uL (4.30-5.70) Mean Corpuscular Volume 75 fL (79-100) Mean Corpuscular Hemoglobin 24 pg (25-35) Red Cell Distribution Width 24.9 % (11.5-14.5) Platelet Count 86 x10^3/uL (140-400) Neutrophils (%) (Auto) 60 % (31-73) Lymphocytes (%) (Auto) 25 % (24-48) Monocytes (%) (Auto) 11 % (0-9) Eosinophils (%) (Auto) 3 % (0-3) Basophils (%) (Auto) 1 % (0-3) Neutrophils # (Auto) 1.3 x10^3uL (1.8-7.7) Lymphocytes # (Auto) 0.5 x10^3/uL (1.0-4.8) Monocytes # (Auto) 0.3 x10^3/uL (0.0-1.1) Eosinophils # (Auto) 0.1 x10^3/uL (0.0-0.7) Basophils # (Auto) 0.0 x10^3/uL (0.0-0.2) Sodium Level 137 mmol/L (136-145) Potassium Level 4.2 mmol/L (3.5-5.1) Chloride Level 103 mmol/L (98-107) Carbon Dioxide Level 25 mmol/L (21-32) Anion Gap 9 (6-14) Blood Urea Nitrogen 9 mg/dL (8-26) Creatinine 0.9 mg/dL (0.7-1.3) Estimated GFR (Cockcroft-Gault) 90.1 Glucose Level 117 mg/dL (70-99) Calcium Level 8.2 mg/dL (8.5-10.1) VTE Prophylaxis Ordered VTE Prophylaxis Devices: Yes VTE Pharmacological Prophylaxi: No Assessment/Plan Assessment/Plan 1- Pancytopenia , etiology not clear, ? sequestration/ bone marrow . GI and heme consult 2- abnormal liver and possibility of liver cirrhosis he claims does not drink ETOH since diagnosed with DM, check hep profile and liver sono 3-DM II 4-Anxiety and depression 5-HLD/HTN 6-Autism/Asberger's NEETA HOGUE MD Mar 12, 2018 11:14
--- NOTE | 2018-03-12 12:24 | PDOC2 ---
CONSULT Date of Consult Date of Consult DATE: 03/12/18 TIME: 12:22 Reason for Consult Reason for Consult: Anemia with pancytopenia Past Medical History Endocrine: Diabetes Past Surgical History Past Surgical History: Appendectomy Family History Family History: No Significant Social History ALCOHOL: occassional Drugs: None Current Problem List Problem List Problems Medical Problems: (1) Dyspnea Status: Acute (2) Generalized weakness Status: Acute (3) Low hemoglobin and low hematocrit Status: Acute Current Medications Current Medications Current Medications Sodium Chloride 500 ml @ 500 mls/hr 1X ONCE IV Last administered on at 18:46; Start 03/11/18 at 18:00; Stop 03/11/18 at 18:59; Status DC Iohexol (Omnipaque 300 Mg/ml) 75 ml 1X ONCE IV ; Start 03/11/18 at 19:00; Stop 03/11/18 at 19:01; Status DC Info (CONTRAST GIVEN -- Rx MONITORING) 1 each PRN DAILY PRN MC SEE COMMENTS; Start 03/11/18 at 19:00; Stop 03/13/18 at 18:59 Insulin Human Lispro (HumaLOG) 0-5 UNITS TIDWMEALS SQ ; Start 03/12/18 at 08:00 Dextrose (Dextrose 50%-Water Syringe) 12.5 gm PRN Q15MIN PRN IV SEE COMMENTS; Start 03/11/18 at 19:45 Insulin Glargine (Lantus) 5 units QHS SQ ; Start 03/11/18 at 21:00 Sodium Chloride 1,000 ml @ 75 mls/hr [id number] IV Last administered on at 09:05; Start 03/11/18 at 19:45 Atorvastatin Calcium (Lipitor) 40 mg HS PO Last administered on 03/11/18at 21:52 ; Start 03/11/18 at 21:00 Fluoxetine HCl (PROzac) 20 mg HS PO Last administered on 03/11/18at 21:52; Start 03/11/18 at 21:00 Ondansetron HCl (Zofran Odt) 4 mg PRN Q8HRS PRN PO NAUSEA; Start 03/11/18 at 20 :00 Acetaminophen/ Butalbital/ Caffeine (Fioricet) 1 tab PRN Q6HRS PRN PO MIGRAINE HEADACHE; Start 03/11/18 at 20:00 Gabapentin (Neurontin) 300 mg TID PO Last administered on 03/11/18at 21:51; Start 03/11/18 at 21:00 Montelukast Sodium (Singulair) 10 mg QHS PO Last administered on 03/11/18at 21: 52; Start 03/11/18 at 21:00 Linagliptin (Tradjenta) 5 mg DAILY PO ; Start 03/12/18 at 09:00 Fluoxetine HCl (PROzac) 20 mg DAILYWBKFT PO ; Start 03/12/18 at 08:00 Active Scripts Active Gabapentin 300 Mg Capsule 300 Mg PO TID Zofran Odt (Ondansetron) 4 Mg Tab.rapdis 1 Tab SL Q8HRS Fioricet 50-300-40 Mg Capsule (Butalb/Acetaminophen/Caffeine) 1 Each Capsule 1 Each PO Q6HRS PRN Reported Lantus Solostar (Insulin Glargine,Hum.rec.anlog) 100 Unit/1 Ml Insuln.pen 10 Unit SQ QHS Fluoxetine Hcl 20 Mg Capsule 20 Mg Levocetirizine Dihydrochloride 5 Mg Tablet 5 Mg Loratadine 10 Mg Tablet 10 Prozac (Fluoxetine Hcl) 20 Mg Capsule 1 Cap PO DAILYWBKFT Atorvastatin Calcium 40 Mg Tablet PO DAILY Januvia (Sitagliptin Phosphate) 100 Mg Tablet 100 PO DAILY Montelukast Sodium Tablet (Montelukast Sodium) 10 Mg Tablet 10 PO DAILY Metformin Hcl Er (Metformin Hcl) 500 Mg Tab.er.24h 500 PO DAILY Allergies Allergies: Coded Allergies: prochlorperazine (Verified Allergy, Intermediate, 01/24/16) Vitals VITALS Vital Signs Date Time Temp Pulse Resp B/P (MAP) Pulse Ox O2 Delivery O2 Flow Rate FiO2 03/12/18 11:21 97.7 88 19 121/65 (83) 100 Room Air 97.7 Labs Labs Laboratory Tests Test 03/11/18 15:18 03/11/18 16:10 03/11/18 21:00 03/11/18 21:13 White Blood Count 2.8 x10^3/uL (4.0-11.0) Red Blood Count 2.55 x10^6/uL (4.30-5.70) Hemoglobin 5.6 g/dL (13.0-17.5) 5.7 g/dL (13.0-17.5) Hematocrit 17.0 % (39.0-53.0) 17.8 % (39.0-53.0) Mean Corpuscular Volume 66 fL (79-100) Mean Corpuscular Hemoglobin 22 pg (25-35) Mean Corpuscular Hemoglobin Concent 33 g/dL (31-37) 32 g/dL (31-37) Red Cell Distribution Width 22.0 % (11.5-14.5) Platelet Count 126 x10^3/uL (140-400) Neutrophils (%) (Auto) 67 % (31-73) Lymphocytes (%) (Auto) 19 % (24-48) Monocytes (%) (Auto) 11 % (0-9) Eosinophils (%) (Auto) 2 % (0-3) Basophils (%) (Auto) 1 % (0-3) Neutrophils # (Auto) 1.9 x10^3uL (1.8-7.7) Lymphocytes # (Auto) 0.5 x10^3/uL (1.0-4.8) Monocytes # (Auto) 0.3 x10^3/uL (0.0-1.1) Eosinophils # (Auto) 0.1 x10^3/uL (0.0-0.7) Basophils # (Auto) 0.0 x10^3/uL (0.0-0.2) Platelet Estimate Decreased (ADEQUATE) Polychromasia Slight Hypochromasia Mod Poikilocytosis Slight Anisocytosis Mod Microcytosis Mod Ovalocytes Few Prothrombin Time 14.4 SEC (11.7-14.0) Prothromb Time International Ratio 1.2 (0.8-1.1) Activated Partial Thromboplast Time 25 SEC (24-38) Sodium Level 133 mmol/L (136-145) Potassium Level 4.1 mmol/L (3.5-5.1) Chloride Level 98 mmol/L (98-107) Carbon Dioxide Level 25 mmol/L (21-32) Anion Gap 10 (6-14) Blood Urea Nitrogen 12 mg/dL (8-26) Creatinine 0.8 mg/dL (0.7-1.3) Estimated GFR (Cockcroft-Gault) 103.2 BUN/Creatinine Ratio 15 (6-20) Glucose Level 251 mg/dL (70-99) Calcium Level 8.7 mg/dL (8.5-10.1) Magnesium Level 2.2 mg/dL (1.8-2.4) Total Bilirubin 0.6 mg/dL (0.2-1.0) Aspartate Amino Transf (AST/SGOT) 19 U/L (15-37) Alanine Aminotransferase (ALT/SGPT) 31 U/L (16-63) Alkaline Phosphatase 82 U/L (46-116) Troponin I Quantitative < 0.017 ng/mL (0.000-0.055) Total Protein 6.7 g/dL (6.4-8.2) Albumin 3.7 g/dL (3.4-5.0) Albumin/Globulin Ratio 1.2 (1.0-1.7) Salicylates Level < 2.8 mg/dL (2.8-20.0) Salicylate Last Dose Date Unknown Salicylate Last Dose Time Unknown Ethyl Alcohol Level < 10 mg/dL (0-10) Stool Occult Blood Negative (NEG) Glucose (Fingerstick) 131 mg/dL (70-99) Test 03/11/18 21:50 03/12/18 07:11 03/12/18 07:30 03/12/18 11:26 Hemoglobin 5.6 g/dL (13.0-17.5) 7.8 g/dL (13.0-17.5) Hematocrit 17.4 % (39.0-53.0) 24.1 % (39.0-53.0) Mean Corpuscular Hemoglobin Concent 32 g/dL (31-37) 32 g/dL (31-37) Glucose (Fingerstick) 125 mg/dL (70-99) 117 mg/dL (70-99) White Blood Count 2.2 x10^3/uL (4.0-11.0) Red Blood Count 3.22 x10^6/uL (4.30-5.70) Mean Corpuscular Volume 75 fL (79-100) Mean Corpuscular Hemoglobin 24 pg (25-35) Red Cell Distribution Width 24.9 % (11.5-14.5) Platelet Count 86 x10^3/uL (140-400) Neutrophils (%) (Auto) 60 % (31-73) Lymphocytes (%) (Auto) 25 % (24-48) Monocytes (%) (Auto) 11 % (0-9) Eosinophils (%) (Auto) 3 % (0-3) Basophils (%) (Auto) 1 % (0-3) Neutrophils # (Auto) 1.3 x10^3uL (1.8-7.7) Lymphocytes # (Auto) 0.5 x10^3/uL (1.0-4.8) Monocytes # (Auto) 0.3 x10^3/uL (0.0-1.1) Eosinophils # (Auto) 0.1 x10^3/uL (0.0-0.7) Basophils # (Auto) 0.0 x10^3/uL (0.0-0.2) Sodium Level 137 mmol/L (136-145) Potassium Level 4.2 mmol/L (3.5-5.1) Chloride Level 103 mmol/L (98-107) Carbon Dioxide Level 25 mmol/L (21-32) Anion Gap 9 (6-14) Blood Urea Nitrogen 9 mg/dL (8-26) Creatinine 0.9 mg/dL (0.7-1.3) Estimated GFR (Cockcroft-Gault) 90.1 Glucose Level 117 mg/dL (70-99) Calcium Level 8.2 mg/dL (8.5-10.1) Laboratory Tests Test 03/11/18 15:18 03/11/18 16:10 03/11/18 21:00 03/11/18 21:13 White Blood Count 2.8 x10^3/uL (4.0-11.0) Red Blood Count 2.55 x10^6/uL (4.30-5.70) Hemoglobin 5.6 g/dL (13.0-17.5) 5.7 g/dL (13.0-17.5) Hematocrit 17.0 % (39.0-53.0) 17.8 % (39.0-53.0) Mean Corpuscular Volume 66 fL (79-100) Mean Corpuscular Hemoglobin 22 pg (25-35) Mean Corpuscular Hemoglobin Concent 33 g/dL (31-37) 32 g/dL (31-37) Red Cell Distribution Width 22.0 % (11.5-14.5) Platelet Count 126 x10^3/uL (140-400) Neutrophils (%) (Auto) 67 % (31-73) Lymphocytes (%) (Auto) 19 % (24-48) Monocytes (%) (Auto) 11 % (0-9) Eosinophils (%) (Auto) 2 % (0-3) Basophils (%) (Auto) 1 % (0-3) Neutrophils # (Auto) 1.9 x10^3uL (1.8-7.7) Lymphocytes # (Auto) 0.5 x10^3/uL (1.0-4.8) Monocytes # (Auto) 0.3 x10^3/uL (0.0-1.1) Eosinophils # (Auto) 0.1 x10^3/uL (0.0-0.7) Basophils # (Auto) 0.0 x10^3/uL (0.0-0.2) Platelet Estimate Decreased (ADEQUATE) Polychromasia Slight Hypochromasia Mod Poikilocytosis Slight Anisocytosis Mod Microcytosis Mod Ovalocytes Few Prothrombin Time 14.4 SEC (11.7-14.0) Prothromb Time International Ratio 1.2 (0.8-1.1) Activated Partial Thromboplast Time 25 SEC (24-38) Sodium Level 133 mmol/L (136-145) Potassium Level 4.1 mmol/L (3.5-5.1) Chloride Level 98 mmol/L (98-107) Carbon Dioxide Level 25 mmol/L (21-32) Anion Gap 10 (6-14) Blood Urea Nitrogen 12 mg/dL (8-26) Creatinine 0.8 mg/dL (0.7-1.3) Estimated GFR (Cockcroft-Gault) 103.2 BUN/Creatinine Ratio 15 (6-20) Glucose Level 251 mg/dL (70-99) Calcium Level 8.7 mg/dL (8.5-10.1) Magnesium Level 2.2 mg/dL (1.8-2.4) Total Bilirubin 0.6 mg/dL (0.2-1.0) Aspartate Amino Transf (AST/SGOT) 19 U/L (15-37) Alanine Aminotransferase (ALT/SGPT) 31 U/L (16-63) Alkaline Phosphatase 82 U/L (46-116) Troponin I Quantitative < 0.017 ng/mL (0.000-0.055) Total Protein 6.7 g/dL (6.4-8.2) Albumin 3.7 g/dL (3.4-5.0) Albumin/Globulin Ratio 1.2 (1.0-1.7) Salicylates Level < 2.8 mg/dL (2.8-20.0) Salicylate Last Dose Date Unknown Salicylate Last Dose Time Unknown Ethyl Alcohol Level < 10 mg/dL (0-10) Stool Occult Blood Negative (NEG) Glucose (Fingerstick) 131 mg/dL (70-99) Test 03/11/18 21:50 03/12/18 07:11 03/12/18 07:30 03/12/18 11:26 Hemoglobin 5.6 g/dL (13.0-17.5) 7.8 g/dL (13.0-17.5) Hematocrit 17.4 % (39.0-53.0) 24.1 % (39.0-53.0) Mean Corpuscular Hemoglobin Concent 32 g/dL (31-37) 32 g/dL (31-37) Glucose (Fingerstick) 125 mg/dL (70-99) 117 mg/dL (70-99) White Blood Count 2.2 x10^3/uL (4.0-11.0) Red Blood Count 3.22 x10^6/uL (4.30-5.70) Mean Corpuscular Volume 75 fL (79-100) Mean Corpuscular Hemoglobin 24 pg (25-35) Red Cell Distribution Width 24.9 % (11.5-14.5) Platelet Count 86 x10^3/uL (140-400) Neutrophils (%) (Auto) 60 % (31-73) Lymphocytes (%) (Auto) 25 % (24-48) Monocytes (%) (Auto) 11 % (0-9) Eosinophils (%) (Auto) 3 % (0-3) Basophils (%) (Auto) 1 % (0-3) Neutrophils # (Auto) 1.3 x10^3uL (1.8-7.7) Lymphocytes # (Auto) 0.5 x10^3/uL (1.0-4.8) Monocytes # (Auto) 0.3 x10^3/uL (0.0-1.1) Eosinophils # (Auto) 0.1 x10^3/uL (0.0-0.7) Basophils # (Auto) 0.0 x10^3/uL (0.0-0.2) Sodium Level 137 mmol/L (136-145) Potassium Level 4.2 mmol/L (3.5-5.1) Chloride Level 103 mmol/L (98-107) Carbon Dioxide Level 25 mmol/L (21-32) Anion Gap 9 (6-14) Blood Urea Nitrogen 9 mg/dL (8-26) Creatinine 0.9 mg/dL (0.7-1.3) Estimated GFR (Cockcroft-Gault) 90.1 Glucose Level 117 mg/dL (70-99) Calcium Level 8.2 mg/dL (8.5-10.1) Assessment/Plan Assessment/Plan Anemia- with pancytopenia, etiology to be determined. BM dysfunction leads differential. Malignayc of colon/stomach possivble aswell Plan heme work-up with additional labs hematology consult for possible BM biopsy possible EGD/colonosocpy pending clinical course Full note dictated JALYN LIU MD Mar 12, 2018 12:24
[2018-03-12] MEDS: LINAGLIPTIN 5 MG TABLET PO SCH (12:32)
[2018-03-12] MEDS: FLUoxetine HCL 20 MG CAPSULE PO SCH ×2 (12:32→20:58)
[2018-03-12] MEDS: ATORVASTATIN CALCIUM 40 MG TABLET. PO SCH (20:58)
[2018-03-12] MEDS: MONTELUKAST SODIUM 10 MG TABLET. PO SCH (20:58)
[2018-03-12] MEDS: INSULIN GLARGINE 300 UNITS/3 ML INSULN.PEN. SQ SCH (21:09)
[2018-03-12] MEDS ORDERED: AMMONIUM LACTATE 12% TOPICAL LOTION 226GM BOTTLE. TP PRN (22:00)
--- NOTE | 2018-03-13 00:40 | CONS ---
DATE OF CONSULTATION: 03/12/2018 Gastrointestinal Consultation REASON FOR CONSULTATION: Anemia and pancytopenia. HISTORY OF PRESENT ILLNESS: A 47-year-old male with past medical history significant for diabetes, hyperlipidemia, hypertension, status post appendectomy, status post knee arthroscopy, as well as heavy alcohol use, is admitted for anemia, weakness, and fatigue. Denies any melena and/or hematochezia, hematemesis. Was noted on admission to have hemoglobin 5.6, white count of 2.8, hematocrit is 17.0. Denies fevers, night sweats, or chills, change in weight. States he has personal history of colonic polyps with last exam approximately 10 years previously and has been admitted for further evaluation and care. PAST MEDICAL HISTORY: Diabetes, status post appendectomy, status post knee arthroscopy. MEDICATIONS: Include atorvastatin, Prozac, gabapentin, insulin, Tradjenta, Singulair, and Zofran. ALLERGIES: He is allergic to PROCHLORPERAZINE. FAMILY AND SOCIAL HISTORY: Lives alone. REVIEW OF SYSTEMS: Per records. PHYSICAL EXAMINATION: GENERAL: Reveals a thin male. VITAL SIGNS: Temperature is 97.7, pulse 88, respiratory rate 18, blood pressure is 120/65. HEENT: Reveals normocephalic and atraumatic head. Pupils and extraocular muscles are not tested. Sclerae anicteric. NECK: Supple. LUNGS: Clear. CARDIOVASCULAR: Reveals an S1, S2 without S3, S4 or appreciable murmur. ABDOMEN: Soft abdomen, normal bowel sounds without appreciable hepatosplenomegaly. EXTREMITIES: Reveal no cyanosis, clubbing, edema. LABORATORY STUDIES: Sodium 137, potassium 4.0, chloride 103, BUN 9, creatinine 0.8, glucose 117, total bilirubin 0.5, alkaline phosphatase 82, ALT of 31, AST of 19, magnesium of 2.2. Hemoglobin 7.8, hematocrit 24.1, white count 2.2, [place] [address]. IMPRESSION: Anemia, pancytopenia, etiology is to be determined. Malignancy, bone marrow suppression certainly are in the differential; therefore, recommend retic count, iron studies, B12, folate, haptoglobin hematology consultation for possible bone marrow aspirate and potential esophagogastroduodenoscopy and colonoscopy pending the patient's clinical course in view of history of colonic polyps. JALYN LIU MD DR: WAYNE/chapin JOB#: [id number] / [id number]
[2018-03-13 03:20] VITALS: BP 118/66
[2018-03-13] MEDS: IV NORMAL SALINE 1000ML BAG 1,000 ML IV SCH ×2 (03:56→15:08)
[2018-03-13 04:37] LABS: HEMATOCRIT 23.8 % (39.0-53.0); HEMOGLOBIN 7.7 g/dL (13.0-17.5); RED BLOOD COUNT 3.23 x10^6/uL (4.30-5.70); RED CELL DISTRIBUTION WIDTH 24.9 % (11.5-14.5); RETIC COUNT 2.6 % (0.5-2.5)
[2018-03-13 04:59] LABS: CALCIUM 8.4 mg/dL (8.5-10.1); CREATININE 0.8 mg/dL (0.7-1.3); GFR 103.2; POTASSIUM 4.1 mmol/L (3.5-5.1); TOTAL BILIRUBIN 0.6 mg/dL (0.2-1.0); TOTAL PROTEIN 5.9 g/dL (6.4-8.2)
[2018-03-13 07:00] VITALS: BP 126/71
[2018-03-13] MEDS: INSULIN LISPRO 300 UNITS/3 ML INSULN.PEN. SQ SCH ×3 (08:00→17:10)
--- NOTE | 2018-03-13 08:41 | RAD ---
Right upper quadrant abdominal ultrasound, 03/12/2018: HISTORY: Chest pain, elevated liver function test The gallbladder is within normal limits in size. There is no sonographic evidence of cholelithiasis. No bile duct dilatation is seen. There is no evidence of a hepatic mass. The pancreas was obscured by overlying bowel. Limited views of the right kidney show no abnormality. IMPRESSION: No significant gallbladder abnormality is detected. Electronically signed by: Derek Flores MD (03/13/2018 8:37 AM) [facility]
[2018-03-13] MEDS: FLUoxetine HCL 20 MG CAPSULE PO SCH (08:44)
[2018-03-13] MEDS: LINAGLIPTIN 5 MG TABLET PO SCH (08:44)
[2018-03-13] MEDS: GABAPENTIN 300 MG CAPSULE. PO SCH ×3 (08:44→20:52)
--- NOTE | 2018-03-13 10:04 | PDOC ---
Subjective: Subjective: Feels fine, can't remember what doctors he's spoken with. Denies bleeding. Objective: Objective: Per RN - no bleeding, tolerating PO, no c/o pain. Vital Signs: Vital Signs Date Time Temp Pulse Resp B/P (MAP) Pulse Ox O2 Delivery O2 Flow Rate FiO2 03/13/18 08:00 Room Air 03/13/18 07:00 97.1 66 16 126/71 (89) 98 97.1 Labs: Laboratory Tests Test 03/12/18 11:26 03/12/18 12:15 03/12/18 16:25 03/12/18 20:41 Glucose (Fingerstick) 117 mg/dL 170 mg/dL 262 mg/dL Iron Level 20 ug/dL Total Iron Binding Capacity 364 ug/dL Iron Saturation 5 % Test 03/13/18 04:20 03/13/18 07:34 White Blood Count 2.0 x10^3/uL Red Blood Count 3.23 x10^6/uL Hemoglobin 7.7 g/dL Hematocrit 23.8 % Mean Corpuscular Volume 74 fL Mean Corpuscular Hemoglobin 24 pg Mean Corpuscular Hemoglobin Concent 32 g/dL Red Cell Distribution Width 24.9 % Platelet Count 81 x10^3/uL Erythrocyte Sedimentation Rate 7 Reticulocyte Count (auto) 2.6 % Sodium Level 138 mmol/L Potassium Level 4.1 mmol/L Chloride Level 104 mmol/L Carbon Dioxide Level 26 mmol/L Anion Gap 8 Blood Urea Nitrogen 7 mg/dL Creatinine 0.8 mg/dL Estimated GFR (Cockcroft-Gault) 103.2 BUN/Creatinine Ratio 9 Glucose Level 151 mg/dL Calcium Level 8.4 mg/dL Total Bilirubin 0.6 mg/dL Aspartate Amino Transf (AST/SGOT) 14 U/L Alanine Aminotransferase (ALT/SGPT) 23 U/L Alkaline Phosphatase 69 U/L Ammonia 11 mcmol/L Total Protein 5.9 g/dL Albumin 3.0 g/dL Albumin/Globulin Ratio 1.0 Glucose (Fingerstick) 136 mg/dL Imaging: CT A/P FINDINGS: Minimal bibasilar lung atelectasis. No evidence of free air identified in the abdomen. There is faint nodular appearance of the liver parenchyma. Mild splenomegaly measuring 14.8 cm. The gallbladder is mildly distended. The stomach is mildly distended. The visualized pancreas grossly appears unremarkable. The small bowel is nondilated. The appendix is not identified. Feces and gas noted in the colon. Urinary bladder is mildly distended. The bilateral kidneys enhance symmetrically. No evidence of hydronephrosis. Mild aortic atherosclerosis. Mild degenerative changes lumbar spine. IMPRESSION: 1. No acute intra-abdominal findings. 2. Faint nodular appearance of the liver probably cirrhotic changes. Mild splenomegaly. RUQ US The gallbladder is within normal limits in size. There is no sonographic evidence of cholelithiasis. No bile duct dilatation is seen. There is no evidence of a hepatic mass. The pancreas was obscured by overlying bowel. Limited views of the right kidney show no abnormality. IMPRESSION: No significant gallbladder abnormality is detected. PE: GEN: NAD LUNGS: CTAB HEART: RRR ABD: S/ND/NT NEURO/PSYCH: A & O 3 A/P: Pancytopenia, SAURAV, fecal occult neg. - Hgb 5.7 to 7.7 s/p transfusion 3 units pRBCs, WBC 2, plt 81 ?cirrhosis - US report only mentions no hepatic mass, h/o heavy alcohol use, INR 1.2 CRC screen, h/o colon polyps - 10+ years ago -- B12 and haptoglobin pending. Await hematology thoughts. ANGUS NAVARRO Mar 13, 2018 10:04
[2018-03-13 10:17] LABS: LACTATE DEHYDROGENASE 124 U/L (85-227)
[2018-03-13 11:00] VITALS: BP 164/91
--- NOTE | 2018-03-13 13:13 | PDOC ---
Provider Note Provider Note Hem-Onc consult: 1. Iron def anemia, plan Venofer. Recommend EGD/colonoscopy. GI following. No hemolysis. 2. Pancytopenia, plan bone marrow bx. DANIEL Sprague MD Mar 13, 2018 13:13
[2018-03-13] MEDS ORDERED: IRON SUCROSE COMPLEX 500 MG in IV NORMAL SALINE 250ML 250 ML IV ONE (14:30)
[2018-03-13 15:00] VITALS: BP 147/80
[2018-03-13] MEDS ORDERED: CYANOCOBALAMIN (VITAMIN B-12) 1,000 MCG/ML VIAL IM SCH (16:00)
[2018-03-13 19:15] VITALS: BP 151/76
[2018-03-13] MEDS: MONTELUKAST SODIUM 10 MG TABLET. PO SCH (20:52)
[2018-03-13] MEDS: ATORVASTATIN CALCIUM 40 MG TABLET. PO SCH (20:52)
[2018-03-13] MEDS: INSULIN GLARGINE 300 UNITS/3 ML INSULN.PEN. SQ SCH (20:59)
--- NOTE | 2018-03-13 21:22 | PDOC ---
PROGRESS NOTES Chief Complaint Chief Complaint Shortness of breath with generalized weakness Pancytopenia History of Present Illness History of Present Illness 47-year-old male presents to ER for complaints of generalized weakness and fatigue. Found with Hb 5.7 and low WBC and platelets, s/p transfusion Hb came to 7.7. Patient states he has had generalized body aches, sinus drainage, dry cough, sore throat, and bilateral earache. This was why his pcp placed him on antibiotics last week. Patient states he is diabetic but does not check his blood sugars and uses both insulin and takes pills. he used to drink heavy but state since diagnosed with diabetes last year has not been drinking at all, he is poor historian but denies being told he has liver problem in the past. on further review today notes he takes up to 14 medications at night and we have not been giving him all his medications. he does not recall the names. Patient reports history of anxiety taking daily prescribed medications with previous SI denying any suicidal ideations at this time reporting his medications have improved his anxiety. 1- Pancytopenia , etiology not clear possibly sequestration/ bone marrow/MDS. GI and heme consult - will likely need BM bx as this persists. He could be on anti-psychotic medication as well since he states he takes more mood meds, will need full med rec 2- abnormal liver and possibility of liver cirrhosis he claims does not drink ETOH since diagnosed with DM, check hep profile and liver sono. He consents to hepatitis testing and HIV testing 3-DM II - will add sliding scale for elevated BG 4-Anxiety and depression - on SSRI, by his history he may be on a mood stabilizer as well, which could account for his pancytopenia 5-HLD/HTN - will cont to treat in house, needs close BP monitoring 6-Autism/Asberger's Vitals Vitals Vital Signs Date Time Temp Pulse Resp B/P (MAP) Pulse Ox O2 Delivery O2 Flow Rate FiO2 03/13/18 19:15 98.2 69 16 151/76 (101) 97 Room Air 98.2 Physical Exam General: Alert, Cooperative, No acute distress Heart: Regular rate, Normal S1, Normal S2, No murmurs Lungs: Clear, Wheezing Abdomen: Normal bowel sounds, No tenderness Extremities: No clubbing, No cyanosis, No edema, Normal pulses Skin: No rashes, No significant lesion Labs LABS Laboratory Tests Test 03/13/18 04:20 10/1/18 07:34 03/13/18 11:40 03/13/18 16:51 White Blood Count 2.0 x10^3/uL (4.0-11.0) Red Blood Count 3.23 x10^6/uL (4.30-5.70) Hemoglobin 7.7 g/dL (13.0-17.5) Hematocrit 23.8 % (39.0-53.0) Mean Corpuscular Volume 74 fL (79-100) Mean Corpuscular Hemoglobin 24 pg (25-35) Mean Corpuscular Hemoglobin Concent 32 g/dL (31-37) Red Cell Distribution Width 24.9 % (11.5-14.5) Platelet Count 81 x10^3/uL (140-400) Erythrocyte Sedimentation Rate 7 (0-15) Reticulocyte Count (auto) 2.6 % (0.5-2.5) Haptoglobin 88 mg/dL (34-200) Sodium Level 138 mmol/L (136-145) Potassium Level 4.1 mmol/L (3.5-5.1) Chloride Level 104 mmol/L (98-107) Carbon Dioxide Level 26 mmol/L (21-32) Anion Gap 8 (6-14) Blood Urea Nitrogen 7 mg/dL (8-26) Creatinine 0.8 mg/dL (0.7-1.3) Estimated GFR (Cockcroft-Gault) 103.2 BUN/Creatinine Ratio 9 (6-20) Glucose Level 151 mg/dL (70-99) Calcium Level 8.4 mg/dL (8.5-10.1) Ferritin 10 ng/mL (26-388) Total Bilirubin 0.6 mg/dL (0.2-1.0) Aspartate Amino Transf (AST/SGOT) 14 U/L (15-37) Alanine Aminotransferase (ALT/SGPT) 23 U/L (16-63) Alkaline Phosphatase 69 U/L (46-116) Ammonia 11 mcmol/L (11-34) Lactate Dehydrogenase 124 U/L (85-227) Total Protein 5.9 g/dL (6.4-8.2) Albumin 3.0 g/dL (3.4-5.0) Albumin/Globulin Ratio 1.0 (1.0-1.7) Glucose (Fingerstick) 136 mg/dL (70-99) 174 mg/dL (70-99) 174 mg/dL (70-99) Test 03/13/18 20:54 Glucose (Fingerstick) 207 mg/dL (70-99) Review of Systems Review of Systems RESPIRATORY: Neg SOB,wheeze,cough,sputum,hemoptysis or bronchitis CARDIOVASCULAR: Neg chest pain,palpitations,dyspnea on exertion,orthopnea, paroxysmal nocturnal dyspnea or edema GASTROINTESTINAL: Neg Appetite changes,nausea,vomiting,or diarrhea,indigestion, dysphagia,change in bowel movements, or abdominal pain. GENITOURINARY: Neg Urinary frequency, hesitancy, urgency, polyuria, dysuria, hematuria, nocturia, or incontinence. SKIN : Neg skin or hair changes,and has no itching,rashes,sores.Denies breast lumps,masses,pain or discharge. ENDOCRINE: Neg polydipsia,polyuria,abnormal weight changes,heat /cold intolerance. ALL/IMM : Neg reactions to drugs other than listed,food,insects,skin rash, trouble breathing,local or general lymph node enlargement or tenderness. Assessment and Plan Assessmemt and Plan Problems Medical Problems: (1) Dyspnea Status: Acute (2) Generalized weakness Status: Acute (3) Low hemoglobin and low hematocrit Status: Acute Comment Review of Relevant I have reviewed the following items ana (where applicable) has been applied. Labs Laboratory Tests Test 03/11/18 21:13 03/11/18 21:50 03/12/18 07:11 03/12/18 07:30 Glucose (Fingerstick) 131 mg/dL (70-99) 125 mg/dL (70-99) Hemoglobin 5.6 g/dL (13.0-17.5) 7.8 g/dL (13.0-17.5) Hematocrit 17.4 % (39.0-53.0) 24.1 % (39.0-53.0) Mean Corpuscular Hemoglobin Concent 32 g/dL (31-37) 32 g/dL (31-37) White Blood Count 2.2 x10^3/uL (4.0-11.0) Red Blood Count 3.22 x10^6/uL (4.30-5.70) Mean Corpuscular Volume 75 fL (79-100) Mean Corpuscular Hemoglobin 24 pg (25-35) Red Cell Distribution Width 24.9 % (11.5-14.5) Platelet Count 86 x10^3/uL (140-400) Neutrophils (%) (Auto) 60 % (31-73) Lymphocytes (%) (Auto) 25 % (24-48) Monocytes (%) (Auto) 11 % (0-9) Eosinophils (%) (Auto) 3 % (0-3) Basophils (%) (Auto) 1 % (0-3) Neutrophils # (Auto) 1.3 x10^3uL (1.8-7.7) Lymphocytes # (Auto) 0.5 x10^3/uL (1.0-4.8) Monocytes # (Auto) 0.3 x10^3/uL (0.0-1.1) Eosinophils # (Auto) 0.1 x10^3/uL (0.0-0.7) Basophils # (Auto) 0.0 x10^3/uL (0.0-0.2) Sodium Level 137 mmol/L (136-145) Potassium Level 4.2 mmol/L (3.5-5.1) Chloride Level 103 mmol/L (98-107) Carbon Dioxide Level 25 mmol/L (21-32) Anion Gap 9 (6-14) Blood Urea Nitrogen 9 mg/dL (8-26) Creatinine 0.9 mg/dL (0.7-1.3) Estimated GFR (Cockcroft-Gault) 90.1 Glucose Level 117 mg/dL (70-99) Calcium Level 8.2 mg/dL (8.5-10.1) Test 03/12/18 11:26 03/12/18 12:15 03/12/18 16:25 03/12/18 20:41 Glucose (Fingerstick) 117 mg/dL (70-99) 170 mg/dL (70-99) 262 mg/dL (70-99) Iron Level 20 ug/dL (65-175) Total Iron Binding Capacity 364 ug/dL (250-450) Iron Saturation 5 % (15-34) Vitamin B12 Level 204 pg/mL (247-911) Test 03/13/18 04:20 03/13/18 07:34 03/13/18 11:40 03/13/18 16:51 White Blood Count 2.0 x10^3/uL (4.0-11.0) Red Blood Count 3.23 x10^6/uL (4.30-5.70) Hemoglobin 7.7 g/dL (13.0-17.5) Hematocrit 23.8 % (39.0-53.0) Mean Corpuscular Volume 74 fL (79-100) Mean Corpuscular Hemoglobin 24 pg (25-35) Mean Corpuscular Hemoglobin Concent 32 g/dL (31-37) Red Cell Distribution Width 24.9 % (11.5-14.5) Platelet Count 81 x10^3/uL (140-400) Erythrocyte Sedimentation Rate 7 (0-15) Reticulocyte Count (auto) 2.6 % (0.5-2.5) Haptoglobin 88 mg/dL (34-200) Sodium Level 138 mmol/L (136-145) Potassium Level 4.1 mmol/L (3.5-5.1) Chloride Level 104 mmol/L (98-107) Carbon Dioxide Level 26 mmol/L (21-32) Anion Gap 8 (6-14) Blood Urea Nitrogen 7 mg/dL (8-26) Creatinine 0.8 mg/dL (0.7-1.3) Estimated GFR (Cockcroft-Gault) 103.2 BUN/Creatinine Ratio 9 (6-20) Glucose Level 151 mg/dL (70-99) Calcium Level 8.4 mg/dL (8.5-10.1) Ferritin 10 ng/mL (26-388) Total Bilirubin 0.6 mg/dL (0.2-1.0) Aspartate Amino Transf (AST/SGOT) 14 U/L (15-37) Alanine Aminotransferase (ALT/SGPT) 23 U/L (16-63) Alkaline Phosphatase 69 U/L (46-116) Ammonia 11 mcmol/L (11-34) Lactate Dehydrogenase 124 U/L (85-227) Total Protein 5.9 g/dL (6.4-8.2) Albumin 3.0 g/dL (3.4-5.0) Albumin/Globulin Ratio 1.0 (1.0-1.7) Glucose (Fingerstick) 136 mg/dL (70-99) 174 mg/dL (70-99) 174 mg/dL (70-99) Test 03/13/18 20:54 Glucose (Fingerstick) 207 mg/dL (70-99) Laboratory Tests Test 03/13/18 04:20 03/13/18 07:34 03/13/18 11:40 03/13/18 16:51 White Blood Count 2.0 x10^3/uL (4.0-11.0) Red Blood Count 3.23 x10^6/uL (4.30-5.70) Hemoglobin 7.7 g/dL (13.0-17.5) Hematocrit 23.8 % (39.0-53.0) Mean Corpuscular Volume 74 fL (79-100) Mean Corpuscular Hemoglobin 24 pg (25-35) Mean Corpuscular Hemoglobin Concent 32 g/dL (31-37) Red Cell Distribution Width 24.9 % (11.5-14.5) Platelet Count 81 x10^3/uL (140-400) Erythrocyte Sedimentation Rate 7 (0-15) Reticulocyte Count (auto) 2.6 % (0.5-2.5) Haptoglobin 88 mg/dL (34-200) Sodium Level 138 mmol/L (136-145) Potassium Level 4.1 mmol/L (3.5-5.1) Chloride Level 104 mmol/L (98-107) Carbon Dioxide Level 26 mmol/L (21-32) Anion Gap 8 (6-14) Blood Urea Nitrogen 7 mg/dL (8-26) Creatinine 0.8 mg/dL (0.7-1.3) Estimated GFR (Cockcroft-Gault) 103.2 BUN/Creatinine Ratio 9 (6-20) Glucose Level 151 mg/dL (70-99) Calcium Level 8.4 mg/dL (8.5-10.1) Ferritin 10 ng/mL (26-388) Total Bilirubin 0.6 mg/dL (0.2-1.0) Aspartate Amino Transf (AST/SGOT) 14 U/L (15-37) Alanine Aminotransferase (ALT/SGPT) 23 U/L (16-63) Alkaline Phosphatase 69 U/L (46-116) Ammonia 11 mcmol/L (11-34) Lactate Dehydrogenase 124 U/L (85-227) Total Protein 5.9 g/dL (6.4-8.2) Albumin 3.0 g/dL (3.4-5.0) Albumin/Globulin Ratio 1.0 (1.0-1.7) Glucose (Fingerstick) 136 mg/dL (70-99) 174 mg/dL (70-99) 174 mg/dL (70-99) Test 03/13/18 20:54 Glucose (Fingerstick) 207 mg/dL (70-99) Medications Current Medications Sodium Chloride 500 ml @ 500 mls/hr 1X ONCE IV Last administered on at 18:46; Start 03/11/18 at 18:00; Stop 03/11/18 at 18:59; Status DC Iohexol (Omnipaque 300 Mg/ml) 75 ml 1X ONCE IV ; Start 03/11/18 at 19:00; Stop 03/11/18 at 19:01; Status DC Info (CONTRAST GIVEN -- Rx MONITORING) 1 each PRN DAILY PRN MC SEE COMMENTS; Start 03/11/18 at 19:00; Stop 03/13/18 at 18:59; Status DC Insulin Human Lispro (HumaLOG) 0-5 UNITS TIDWMEALS SQ Last administered on 03/13at 17:10; Start 03/12/18 at 08:00 Dextrose (Dextrose 50%-Water Syringe) 12.5 gm PRN Q15MIN PRN IV SEE COMMENTS; Start 03/11/18 at 19:45 Insulin Glargine (Lantus) 5 units QHS SQ ; Start 03/11/18 at 21:00; Stop at 15:46; Status DC Sodium Chloride 1,000 ml @ 75 mls/hr [id number] IV Last administered on at 15:08; Start 03/11/18 at 19:45 Atorvastatin Calcium (Lipitor) 40 mg HS PO Last administered on 03/13/18at 20:52 ; Start 03/11/18 at 21:00 Fluoxetine HCl (PROzac) 20 mg HS PO Last administered on 03/12/18at 20:58; Start 03/11/18 at 21:00; Stop 03/13/18 at 14:10; Status DC Ondansetron HCl (Zofran Odt) 4 mg PRN Q8HRS PRN PO NAUSEA; Start 03/11/18 at 20 :00 Acetaminophen/ Butalbital/ Caffeine (Fioricet) 1 tab PRN Q6HRS PRN PO MIGRAINE HEADACHE; Start 03/11/18 at 20:00 Gabapentin (Neurontin) 300 mg TID PO Last administered on 03/13/18at 20:52; Start 03/11/18 at 21:00 Montelukast Sodium (Singulair) 10 mg QHS PO Last administered on 03/13/18at 20: 52; Start 03/11/18 at 21:00 Linagliptin (Tradjenta) 5 mg DAILY PO Last administered on 03/13/18at 08:44; Start 03/12/18 at 09:00 Fluoxetine HCl (PROzac) 20 mg DAILYWBKFT PO Last administered on 03/13/18at 08: 44; Start 03/12/18 at 08:00 Insulin Glargine (Lantus) 10 units QHS SQ Last administered on 03/13/18at 20:59 ; Start 03/12/18 at 21:00 Metformin HCl (Glucophage Xr) 500 mg DAILYWBKFT PO ; Start 03/14/18 at 08:00 Lactic Acid (Lac-Hydrin) 1 reddy PRN BID PRN TP ITCHING; Start 03/12/18 at 22:00 Iron Sucrose 500 mg/Sodium Chloride 275 ml @ 78.571 mls/ hr 1X ONCE IV Last administered on 03/13/18at 15:09; Start 03/13/18 at 14:30; Stop 03/13/18 at 17:59 ; Status DC Ferrous Sulfate (Feosol) 325 mg DAILYWBKFT PO ; Start 03/14/18 at 08:00 Cyanocobalamin (Vitamin B-12) 1,000 mcg DAILY16 IM Last administered on at 17:06; Start 03/13/18 at 16:00 Active Scripts Active Gabapentin 300 Mg Capsule 300 Mg PO TID Zofran Odt (Ondansetron) 4 Mg Tab.rapdis 1 Tab SL Q8HRS Fioricet 50-300-40 Mg Capsule (Butalb/Acetaminophen/Caffeine) 1 Each Capsule 1 Each PO Q6HRS PRN Reported Lantus Solostar (Insulin Glargine,Hum.rec.anlog) 100 Unit/1 Ml Insuln.pen 10 Unit SQ QHS Levocetirizine Dihydrochloride 5 Mg Tablet 5 Mg Loratadine 10 Mg Tablet 10 Prozac (Fluoxetine Hcl) 20 Mg Capsule 1 Cap PO DAILYWBKFT Atorvastatin Calcium 40 Mg Tablet PO DAILY Januvia (Sitagliptin Phosphate) 100 Mg Tablet 100 PO DAILY Montelukast Sodium Tablet (Montelukast Sodium) 10 Mg Tablet 10 PO DAILY Metformin Hcl Er (Metformin Hcl) 500 Mg Tab.er.24h 500 PO DAILY Vitals/I & O Vital Sign - Last 24 Hours 03/12/18 03/13/18 03/13/18 03/13/18 23:20 03:20 07:00 08:00 Temp 97.8 97.4 97.1 97.8 97.4 97.1 Pulse 67 60 66 Resp 16 16 16 B/P (MAP) 124/72 (89) 118/66 (83) 126/71 (89) Pulse Ox 99 98 98 O2 Delivery Room Air Room Air Room Air Room Air 03/13/18 03/13/18 03/13/18 11:00 15:00 19:15 Temp 97.7 97.9 98.2 97.7 97.9 98.2 Pulse 68 68 69 Resp 20 20 16 B/P (MAP) 164/91 (115) 147/80 (102) 151/76 (101) Pulse Ox 100 98 97 O2 Delivery Room Air Room Air Room Air Intake and Output 03/12/18 03/12/18 03/13/18 15:00 23:00 07:00 Intake Total 120 ml 480 ml 450 ml Balance 120 ml 480 ml 450 ml YVES RIDDLE MD Mar 13, 2018 21:22
[2018-03-13 23:20] VITALS: BP 116/62
[2018-03-14] VITALS (10 sets, daily range): BP systolic 114–139; BP diastolic 59–84
[2018-03-14] MEDS: IV NORMAL SALINE 1000ML BAG 1,000 ML IV SCH ×3 (02:49→23:03)
--- NOTE | 2018-03-14 04:48 | CONS ---
DATE OF CONSULTATION: 03/13/2018 REQUESTING PHYSICIAN: Dr. Cleo Marrero. REASON FOR CONSULTATION: Pancytopenia. HISTORY OF PRESENT ILLNESS: The patient is a 47-year-old gentleman who has a history of heavy alcohol use in the past and he was admitted to [facility] on 03/11/2018 with generalized weakness, fatigue and intermittent shortness of breath. He also had generalized body aches, dry cough, sore throat and ear aches. He has quit drinking alcohol in 2017 because he was diagnosed with diabetes. He denies any history of cirrhosis of the liver or hepatitis. He was noted to have a hemoglobin of 5.6 on 03/11/2018 and hence he was admitted to [facility] and given blood transfusion. Chemistry panel revealed iron deficiency with an iron level of 20, iron saturation of 5 and ferritin of 10.0 on 03/12/2018. B12 was 204. LDH was 124 and reticulocyte count was 2.6. Gastroenterology was also consulted for anemia. I was consulted for pancytopenia. He underwent a CT scan of the abdomen and pelvis on 03/11/2018 which revealed nodular appearance of the liver, probably consistent with cirrhotic changes. There was also evidence of mild splenomegaly. Ultrasound of the right upper quadrant of the abdomen was negative for any gallbladder pathology. He denies nosebleeds or gum bleeding except for occasional minor nosebleeds. No hematemesis, melena or hematochezia. No hemoptysis or hematuria. No loss of weight or loss of appetite. PAST MEDICAL HISTORY: Diabetes mellitus, hypertension, hyperlipidemia, peripheral neuropathy, GERD, anemia, anxiety, depression, allergic rhinitis. PAST SURGICAL HISTORY: Appendectomy. FAMILY HISTORY: Positive for Alzheimer's dementia and hypertension. SOCIAL HISTORY: He drinks alcohol occasionally. He has quit smoking. He has a history of heavy alcohol use in the past. REVIEW OF SYSTEMS: A 12-point review of system was performed. Pertinent positives are mentioned in the history of present illness. Rest of the system review is negative. PHYSICAL EXAMINATION: GENERAL APPEARANCE: The patient is a 47-year-old gentleman who is in no acute cardiorespiratory distress. VITAL SIGNS: Blood pressure 147/80, temperature 97.9. HEENT: Head atraumatic, normocephalic. Eyes: No icterus. NECK: Supple. CHEST: Bilaterally symmetrical. HEART: S1, S2 normal. ABDOMEN: Soft, nontender. CENTRAL NERVOUS SYSTEM: No focal deficits. LYMPHATICS: No lymphadenopathy. SKIN: No rashes. PSYCHOLOGIC: Flat affect. LYMPHATICS: No lymphadenopathy. LABORATORY DATA: From 03/11/2018, WBC 2.8, hemoglobin 5.6, MCV 66, platelet count 126. Reticulocyte count is 2.6. Ferritin is 10, iron 20, TIBC 364, iron saturation is 5% and B12 204. Liver function test reveals a total bilirubin of 0.6, AST 19, ALT 31, alkaline phosphatase 82, total protein 6.7, albumin 3.7. IMPRESSION AND PLAN: 1. Hypochromic microcytic anemia secondary to iron deficiency. He has history of heavy alcohol use in the past. Hence, he would need GI consultation for EGD and colonoscopy to evaluate for any occult bleeding. I will start Venofer 500 mg IV on 03/13/2018 and also start him on oral iron supplementation. 2. B12 deficiency. His B12 level is only 204 on 03/12/2018. I will start vitamin B12 1000 mg IM daily. 3. Thrombocytopenia. I reviewed old records. The patient has had thrombocytopenia at least since 01/24/2016 when the platelet count was 53. Hence, I suspect that this is due to cirrhosis of the liver, portal hypertension and splenomegaly. However, he now denies any heavy alcohol use and hence I will proceed with a bone marrow biopsy to make sure there are no underlying primary bone marrow disorders. 4. Leukopenia, chronic since 01/24/2016 when the WBC count was 2.6. Plan workup as above. DANIEL PADILLA MD DR: JEREMY/chapin JOB#: [id number] / [id number] LIZANDRO
[2018-03-14] MEDS: INSULIN LISPRO 300 UNITS/3 ML INSULN.PEN. SQ SCH ×3 (08:00→17:00)
--- NOTE | 2018-03-14 08:34 | PDOC ---
PROGRESS NOTES Subjective Subjective HPI - f/u of pancytopenia ROS - no bleed Objective Objective Vital Signs Date Time Temp Pulse Resp B/P (MAP) Pulse Ox O2 Delivery O2 Flow Rate FiO2 03/14/18 07:00 96.4 62 16 127/79 (95) 99 Room Air 96.4 Intake and Output 03/14/18 07:00 Intake Total 2260 ml Balance 2260 ml Intake Oral 2260 ml # Voids 7 Physical Exam Heart: Normal S1, Normal S2 General: Alert, Oriented X3, No acute distress Lungs: Clear to auscultation Neck: Supple Psych/Mental Status: Mental status NL Assessment Assessment Problems Medical Problems: (1) Dyspnea Status: Acute (2) Generalized weakness Status: Acute (3) Low hemoglobin and low hematocrit Status: Acute IMPRESSION AND PLAN: 1. Hypochromic microcytic anemia secondary to iron deficiency. He has history of heavy alcohol use in the past. Hence, he would need GI consultation for EGD and colonoscopy to evaluate for any occult bleeding. s/p Venofer 500 mg IV on 03/13/2018 and also started him on oral iron supplementation. Hb 7.7 2. B12 deficiency. His B12 level is only 204 on 03/12/2018. Started vitamin B12 1000 mg IM daily 03/14/18. 3. Thrombocytopenia. I reviewed old records. The patient has had thrombocytopenia at least since 01/24/2016 when the platelet count was 53. Hence, I suspect that this is due to cirrhosis of the liver, portal hypertension and splenomegaly. However, he now denies any heavy alcohol use and hence I will proceed with a bone marrow biopsy to make sure there are no underlying primary bone marrow disorders. Plt now at 81. 4. Leukopenia, chronic since 01/24/2016 when the WBC count was 2.6. Plan workup as above. WBC now 2.0. 5. Mild splenomegaly, suspected cirrhosis, GI following. Comment Review of Relevant I have reviewed the following items ana (where applicable) has been applied. Labs Laboratory Tests Test 03/12/18 11:26 03/12/18 12:15 03/12/18 16:25 03/12/18 20:41 Glucose (Fingerstick) 117 mg/dL (70-99) 170 mg/dL (70-99) 262 mg/dL (70-99) Iron Level 20 ug/dL (65-175) Total Iron Binding Capacity 364 ug/dL (250-450) Iron Saturation 5 % (15-34) Vitamin B12 Level 204 pg/mL (247-911) Test 03/13/18 04:20 03/13/18 07:34 03/13/18 11:40 03/13/18 16:51 White Blood Count 2.0 x10^3/uL (4.0-11.0) Red Blood Count 3.23 x10^6/uL (4.30-5.70) Hemoglobin 7.7 g/dL (13.0-17.5) Hematocrit 23.8 % (39.0-53.0) Mean Corpuscular Volume 74 fL (79-100) Mean Corpuscular Hemoglobin 24 pg (25-35) Mean Corpuscular Hemoglobin Concent 32 g/dL (31-37) Red Cell Distribution Width 24.9 % (11.5-14.5) Platelet Count 81 x10^3/uL (140-400) Erythrocyte Sedimentation Rate 7 (0-15) Reticulocyte Count (auto) 2.6 % (0.5-2.5) Haptoglobin 88 mg/dL (34-200) Sodium Level 138 mmol/L (136-145) Potassium Level 4.1 mmol/L (3.5-5.1) Chloride Level 104 mmol/L (98-107) Carbon Dioxide Level 26 mmol/L (21-32) Anion Gap 8 (6-14) Blood Urea Nitrogen 7 mg/dL (8-26) Creatinine 0.8 mg/dL (0.7-1.3) Estimated GFR (Cockcroft-Gault) 103.2 BUN/Creatinine Ratio 9 (6-20) Glucose Level 151 mg/dL (70-99) Calcium Level 8.4 mg/dL (8.5-10.1) Ferritin 10 ng/mL (26-388) Total Bilirubin 0.6 mg/dL (0.2-1.0) Aspartate Amino Transf (AST/SGOT) 14 U/L (15-37) Alanine Aminotransferase (ALT/SGPT) 23 U/L (16-63) Alkaline Phosphatase 69 U/L (46-116) Ammonia 11 mcmol/L (11-34) Lactate Dehydrogenase 124 U/L (85-227) Total Protein 5.9 g/dL (6.4-8.2) Albumin 3.0 g/dL (3.4-5.0) Albumin/Globulin Ratio 1.0 (1.0-1.7) Glucose (Fingerstick) 136 mg/dL (70-99) 174 mg/dL (70-99) 174 mg/dL (70-99) Test 03/13/18 20:54 03/14/18 07:17 Glucose (Fingerstick) 207 mg/dL (70-99) 106 mg/dL (70-99) Laboratory Tests Test 03/13/18 11:40 03/13/18 16:51 03/13/18 20:54 03/14/18 07:17 Glucose (Fingerstick) 174 mg/dL (70-99) 174 mg/dL (70-99) 207 mg/dL (70-99) 106 mg/dL (70-99) Medications Current Medications Sodium Chloride 500 ml @ 500 mls/hr 1X ONCE IV Last administered on at 18:46; Start 03/11/18 at 18:00; Stop 03/11/18 at 18:59; Status DC Iohexol (Omnipaque 300 Mg/ml) 75 ml 1X ONCE IV ; Start 03/11/18 at 19:00; Stop 03/11/18 at 19:01; Status DC Info (CONTRAST GIVEN -- Rx MONITORING) 1 each PRN DAILY PRN MC SEE COMMENTS; Start 03/11/18 at 19:00; Stop 03/13/18 at 18:59; Status DC Insulin Human Lispro (HumaLOG) 0-5 UNITS TIDWMEALS SQ Last administered on 03/13at 17:10; Start 03/12/18 at 08:00 Dextrose (Dextrose 50%-Water Syringe) 12.5 gm PRN Q15MIN PRN IV SEE COMMENTS; Start 03/11/18 at 19:45 Insulin Glargine (Lantus) 5 units QHS SQ ; Start 03/11/18 at 21:00; Stop at 15:46; Status DC Sodium Chloride 1,000 ml @ 75 mls/hr [id number] IV Last administered on at 02:49; Start 03/11/18 at 19:45 Atorvastatin Calcium (Lipitor) 40 mg HS PO Last administered on 03/13/18at 20:52 ; Start 03/11/18 at 21:00 Fluoxetine HCl (PROzac) 20 mg HS PO Last administered on 03/12/18at 20:58; Start 03/11/18 at 21:00; Stop 03/13/18 at 14:10; Status DC Ondansetron HCl (Zofran Odt) 4 mg PRN Q8HRS PRN PO NAUSEA; Start 03/11/18 at 20 :00 Acetaminophen/ Butalbital/ Caffeine (Fioricet) 1 tab PRN Q6HRS PRN PO MIGRAINE HEADACHE; Start 03/11/18 at 20:00 Gabapentin (Neurontin) 300 mg TID PO Last administered on 03/13/18at 20:52; Start 03/11/18 at 21:00 Montelukast Sodium (Singulair) 10 mg QHS PO Last administered on 03/13/18at 20: 52; Start 03/11/18 at 21:00 Linagliptin (Tradjenta) 5 mg DAILY PO Last administered on 03/13/18at 08:44; Start 03/12/18 at 09:00 Fluoxetine HCl (PROzac) 20 mg DAILYWBKFT PO Last administered on 03/13/18at 08: 44; Start 03/12/18 at 08:00 Insulin Glargine (Lantus) 10 units QHS SQ Last administered on 03/13/18at 20:59 ; Start 03/12/18 at 21:00 Metformin HCl (Glucophage Xr) 500 mg DAILYWBKFT PO ; Start 03/14/18 at 08:00 Lactic Acid (Lac-Hydrin) 1 reddy PRN BID PRN TP ITCHING; Start 03/12/18 at 22:00 Iron Sucrose 500 mg/Sodium Chloride 275 ml @ 78.571 mls/ hr 1X ONCE IV Last administered on 03/13/18at 15:09; Start 03/13/18 at 14:30; Stop 03/13/18 at 17:59 ; Status DC Ferrous Sulfate (Feosol) 325 mg DAILYWBKFT PO ; Start 03/14/18 at 08:00 Cyanocobalamin (Vitamin B-12) 1,000 mcg DAILY16 IM Last administered on at 17:06; Start 03/13/18 at 16:00 Cyanocobalamin (Vitamin B-12) 1,000 mcg DAILY IM ; Start 03/14/18 at 09:00; Stop 03/20/18 at 08:59 Active Scripts Active Gabapentin 300 Mg Capsule 300 Mg PO TID Zofran Odt (Ondansetron) 4 Mg Tab.rapdis 1 Tab SL Q8HRS Fioricet 50-300-40 Mg Capsule (Butalb/Acetaminophen/Caffeine) 1 Each Capsule 1 Each PO Q6HRS PRN Reported Lantus Solostar (Insulin Glargine,Hum.rec.anlog) 100 Unit/1 Ml Insuln.pen 10 Unit SQ QHS Levocetirizine Dihydrochloride 5 Mg Tablet 5 Mg Loratadine 10 Mg Tablet 10 Prozac (Fluoxetine Hcl) 20 Mg Capsule 1 Cap PO DAILYWBKFT Atorvastatin Calcium 40 Mg Tablet PO DAILY Januvia (Sitagliptin Phosphate) 100 Mg Tablet 100 PO DAILY Montelukast Sodium Tablet (Montelukast Sodium) 10 Mg Tablet 10 PO DAILY Metformin Hcl Er (Metformin Hcl) 500 Mg Tab.er.24h 500 PO DAILY Vitals/I & O Vital Sign - Last 24 Hours 03/13/18 03/13/18 03/13/18 03/13/18 11:00 15:00 19:15 20:00 Temp 97.7 97.9 98.2 97.7 97.9 98.2 Pulse 68 68 69 Resp 20 20 16 B/P (MAP) 164/91 (115) 147/80 (102) 151/76 (101) Pulse Ox 100 98 97 O2 Delivery Room Air Room Air Room Air Room Air 03/13/18 03/14/18 03/14/18 23:20 03:20 07:00 Temp 98.5 98.2 96.4 98.5 98.2 96.4 Pulse 60 60 62 Resp 16 16 16 B/P (MAP) 116/62 (80) 115/59 (77) 127/79 (95) Pulse Ox 97 97 99 O2 Delivery Room Air Room Air Room Air Intake and Output 03/13/18 03/13/18 03/14/18 15:00 23:00 07:00 Intake Total 1780 ml 480 ml Balance 1780 ml 480 ml DANIEL PADILLA MD Mar 14, 2018 08:34
--- NOTE | 2018-03-14 08:54 | PDOC ---
Subjective: Subjective: "I'm not quite awake yet." Having bone marrow biopsy today. Objective: Vital Signs: Vital Signs Date Time Temp Pulse Resp B/P (MAP) Pulse Ox O2 Delivery O2 Flow Rate FiO2 03/14/18 07:00 96.4 62 16 127/79 (95) 99 Room Air 96.4 Labs: Laboratory Tests Test 03/13/18 11:40 03/13/18 16:51 03/13/18 20:54 03/14/18 07:17 Glucose (Fingerstick) 174 mg/dL 174 mg/dL 207 mg/dL 106 mg/dL PE: GEN: NAD LUNGS: CTAB HEART: RRR ABD: S/ND/NT NEURO/PSYCH: A & O 3 A/P: Anemia - iron and B12 deficient Thrombocytopenia ?cirrhosis, h/o heavy alcohol use -- Plans for bone marrow biopsy today. EGD and colonoscopy later on, either inpt or outpt. ANGUS NAVARRO Mar 14, 2018 08:54
[2018-03-14] MEDS ORDERED: FLUMAZENIL 0.5 MG/5 ML VIAL. IV ONE (08:55)
[2018-03-14] MEDS ORDERED: MIDAZOLAM HCL/PF 2 MG/2 ML VIAL. ONE (08:55)
[2018-03-14] MEDS ORDERED: NALOXONE 0.4 MG/ML VIAL. ONE (08:55)
[2018-03-14] MEDS ORDERED: fentaNYL PF VIAL 100 MCG/2 ML VIAL ONE (08:55)
[2018-03-14] MEDS ORDERED: fentaNYL PF VIAL 100 MCG/2 ML VIAL IV ONE (09:15)
[2018-03-14] MEDS ORDERED: MIDAZOLAM HCL/PF 2 MG/2 ML VIAL. IV ONE (09:15)
[2018-03-14] MEDS ORDERED: LIDOCAINE WITH 8.4% SOD BICARB 3 ML DISP.SYRIN. IJ ONE (09:15)
[2018-03-14 12:00] LABS: HEMATOCRIT 27.1 % (39.0-53.0); HEMOGLOBIN 8.8 g/dL (13.0-17.5); RED BLOOD COUNT 3.64 x10^6/uL (4.30-5.70); RED CELL DISTRIBUTION WIDTH 25.2 % (11.5-14.5); WHITE BLOOD COUNT 3.6 x10^3/uL (4.0-11.0)
[2018-03-14] MEDS: LINAGLIPTIN 5 MG TABLET PO SCH (12:25)
[2018-03-14] MEDS: GABAPENTIN 300 MG CAPSULE. PO SCH ×3 (12:25→21:20)
[2018-03-14] MEDS: metFORMIN XR 500 MG TAB.ER.24H PO SCH (12:25)
[2018-03-14] MEDS: FERROUS SULFATE 325 MG TABLET. PO SCH (12:25)
[2018-03-14] MEDS: FLUoxetine HCL 20 MG CAPSULE PO SCH (12:25)
--- NOTE | 2018-03-14 13:55 | RAD ---
CT-guided bone marrow biopsy. 03/14/2018 1:51 PM Indication: pancytopenia, eval for MDS Discussion: The risks and benefits of the procedure, including but not limited to, bleeding and infection were discussed patient. Informed consent was obtained. The patient was brought to the CT scanner and placed in the prone position. A timeout procedure was performed. [employer] CT imaging of the pelvis demonstrated left ilium amenable to bone marrow biopsy. The overlying soft tissues were prepped and draped using maximum sterile barrier technique. 1% lidocaine without epinephrine was administered for local anesthesia. Under intermittent CT guidance, an OncControl needle was advanced into the bone marrow of the left iliac crest. 2 Aspirates and 1 core biopsy samples were obtained. Samples were delivered to pathology was present at the time of procedure. The needle was removed and manual pressure held to achieve hemostasis. No immediate complications were identified. The procedure was performed under conscious sedation including continuous cardiopulmonary monitoring via dedicated sedation nurse. Sedation time: 20 minutes Impression: Successful CT-guided bone marrow biopsy of the left iliac crest . PQRS Compliance Statement: One or more of the following individualized dose reduction techniques were utilized for this examination: 1. Automated exposure control 2. Adjustment of the mA and/or kV according to patient size 3. Use of iterative reconstruction technique
[2018-03-14] MEDS: CYANOCOBALAMIN (VITAMIN B-12) 1,000 MCG/ML VIAL IM SCH (14:46)
--- NOTE | 2018-03-14 21:19 | PDOC ---
PROGRESS NOTES Chief Complaint Chief Complaint Shortness of breath with generalized weakness Pancytopenia History of Present Illness History of Present Illness 47-year-old male presents to ER for complaints of generalized weakness and fatigue. Found with Hb 5.7 and low WBC and platelets, s/p transfusion Hb came to 7.7. Patient states he has had generalized body aches, sinus drainage, dry cough, sore throat, and bilateral earache. This was why his pcp placed him on antibiotics last week. Patient states he is diabetic but does not check his blood sugars and uses both insulin and takes pills. he used to drink heavy but state since diagnosed with diabetes last year has not been drinking at all, he is poor historian but denies being told he has liver problem in the past. on further review today notes he takes up to 14 medications at night and we have not been giving him all his medications. he does not recall the names, have reconciled with pharmacy , now notes he was seeing a psychiatrist in [place], but did not like the [address] He is still very fatigued today, sleeping most of the day. Patient reports history of anxiety taking daily prescribed medications with previous SI denying any suicidal ideations at this time reporting his medications have improved his anxiety. 1- Pancytopenia , etiology not clear possibly sequestration/ bone marrow/MDS. GI and heme consult - BM bx today as this persists. He could be on anti- psychotic medication as well since he states he takes more mood meds, will need full med rec, however this was not the case. His prior ETOH use and likely underlying cirrhosis appear to be the etiology, however he also has concomitant iron and b12 deficiencies which are now being replaced 2- abnormal liver and possibility of liver cirrhosis he claims does not drink ETOH since diagnosed with DM, check hep profile and liver sono. He consents to hepatitis testing and HIV testing 3-DM II - will cont sliding scale for elevated BG 4-Anxiety and depression - on SSRI, by his history he may be on a mood stabilizer as well, which could account for his pancytopenia 5-HLD/HTN - will cont to treat in house, needs close BP monitoring 6-Autism/Asberger's - flat affect. Will have psych to see and social work as his [id number] is concerned she had to pay his rent in order to prevent his eviction yesterday. Vitals Vitals Vital Signs Date Time Temp Pulse Resp B/P (MAP) Pulse Ox O2 Delivery O2 Flow Rate FiO2 03/14/18 19:20 97.9 65 18 138/84 (102) 96 Room Air 97.9 03/14/18 09:22 2.0 Physical Exam General: Alert, Oriented X3, No acute distress Heart: Normal S1, Normal S2 Lungs: Clear, Wheezing Abdomen: Normal bowel sounds, No tenderness Extremities: No clubbing, No cyanosis, No edema, Normal pulses Skin: No rashes, No significant lesion Labs LABS Laboratory Tests Test 03/14/18 07:17 03/14/18 11:20 03/14/18 11:50 03/14/18 17:05 Glucose (Fingerstick) 106 mg/dL (70-99) 112 mg/dL (70-99) 115 mg/dL (70-99) White Blood Count 3.6 x10^3/uL (4.0-11.0) Red Blood Count 3.64 x10^6/uL (4.30-5.70) Hemoglobin 8.8 g/dL (13.0-17.5) Hematocrit 27.1 % (39.0-53.0) Mean Corpuscular Volume 75 fL (79-100) Mean Corpuscular Hemoglobin 24 pg (25-35) Mean Corpuscular Hemoglobin Concent 33 g/dL (31-37) Red Cell Distribution Width 25.2 % (11.5-14.5) Platelet Count 86 x10^3/uL (140-400) Test 03/14/18 20:36 Glucose (Fingerstick) 154 mg/dL (70-99) Assessment and Plan Assessmemt and Plan Problems Medical Problems: (1) Dyspnea Status: Acute (2) Generalized weakness Status: Acute (3) Low hemoglobin and low hematocrit Status: Acute Comment Review of Relevant I have reviewed the following items ana (where applicable) has been applied. Labs Laboratory Tests Test 03/13/18 04:20 03/13/18 07:34 03/13/18 11:40 03/13/18 16:51 White Blood Count 2.0 x10^3/uL (4.0-11.0) Red Blood Count 3.23 x10^6/uL (4.30-5.70) Hemoglobin 7.7 g/dL (13.0-17.5) Hematocrit 23.8 % (39.0-53.0) Mean Corpuscular Volume 74 fL (79-100) Mean Corpuscular Hemoglobin 24 pg (25-35) Mean Corpuscular Hemoglobin Concent 32 g/dL (31-37) Red Cell Distribution Width 24.9 % (11.5-14.5) Platelet Count 81 x10^3/uL (140-400) Erythrocyte Sedimentation Rate 7 (0-15) Reticulocyte Count (auto) 2.6 % (0.5-2.5) Haptoglobin 88 mg/dL (34-200) Sodium Level 138 mmol/L (136-145) Potassium Level 4.1 mmol/L (3.5-5.1) Chloride Level 104 mmol/L (98-107) Carbon Dioxide Level 26 mmol/L (21-32) Anion Gap 8 (6-14) Blood Urea Nitrogen 7 mg/dL (8-26) Creatinine 0.8 mg/dL (0.7-1.3) Estimated GFR (Cockcroft-Gault) 103.2 BUN/Creatinine Ratio 9 (6-20) Glucose Level 151 mg/dL (70-99) Calcium Level 8.4 mg/dL (8.5-10.1) Ferritin 10 ng/mL (26-388) Total Bilirubin 0.6 mg/dL (0.2-1.0) Aspartate Amino Transf (AST/SGOT) 14 U/L (15-37) Alanine Aminotransferase (ALT/SGPT) 23 U/L (16-63) Alkaline Phosphatase 69 U/L (46-116) Ammonia 11 mcmol/L (11-34) Lactate Dehydrogenase 124 U/L (85-227) Total Protein 5.9 g/dL (6.4-8.2) Albumin 3.0 g/dL (3.4-5.0) Albumin/Globulin Ratio 1.0 (1.0-1.7) Glucose (Fingerstick) 136 mg/dL (70-99) 174 mg/dL (70-99) 174 mg/dL (70-99) Test 03/13/18 20:54 03/14/18 07:17 03/14/18 11:20 03/14/18 11:50 Glucose (Fingerstick) 207 mg/dL (70-99) 106 mg/dL (70-99) 112 mg/dL (70-99) White Blood Count 3.6 x10^3/uL (4.0-11.0) Red Blood Count 3.64 x10^6/uL (4.30-5.70) Hemoglobin 8.8 g/dL (13.0-17.5) Hematocrit 27.1 % (39.0-53.0) Mean Corpuscular Volume 75 fL (79-100) Mean Corpuscular Hemoglobin 24 pg (25-35) Mean Corpuscular Hemoglobin Concent 33 g/dL (31-37) Red Cell Distribution Width 25.2 % (11.5-14.5) Platelet Count 86 x10^3/uL (140-400) Test 03/14/18 17:05 03/14/18 20:36 Glucose (Fingerstick) 115 mg/dL (70-99) 154 mg/dL (70-99) Laboratory Tests Test 03/14/18 07:17 03/14/18 11:20 03/14/18 11:50 03/14/18 17:05 Glucose (Fingerstick) 106 mg/dL (70-99) 112 mg/dL (70-99) 115 mg/dL (70-99) White Blood Count 3.6 x10^3/uL (4.0-11.0) Red Blood Count 3.64 x10^6/uL (4.30-5.70) Hemoglobin 8.8 g/dL (13.0-17.5) Hematocrit 27.1 % (39.0-53.0) Mean Corpuscular Volume 75 fL (79-100) Mean Corpuscular Hemoglobin 24 pg (25-35) Mean Corpuscular Hemoglobin Concent 33 g/dL (31-37) Red Cell Distribution Width 25.2 % (11.5-14.5) Platelet Count 86 x10^3/uL (140-400) Test 03/14/18 20:36 Glucose (Fingerstick) 154 mg/dL (70-99) Medications Current Medications Sodium Chloride 500 ml @ 500 mls/hr 1X ONCE IV Last administered on at 18:46; Start 03/11/18 at 18:00; Stop 03/11/18 at 18:59; Status DC Iohexol (Omnipaque 300 Mg/ml) 75 ml 1X ONCE IV ; Start 03/11/18 at 19:00; Stop 03/11/18 at 19:01; Status DC Info (CONTRAST GIVEN -- Rx MONITORING) 1 each PRN DAILY PRN MC SEE COMMENTS; Start 03/11/18 at 19:00; Stop 03/13/18 at 18:59; Status DC Insulin Human Lispro (HumaLOG) 0-5 UNITS TIDWMEALS SQ Last administered on 03/13at 17:10; Start 03/12/18 at 08:00 Dextrose (Dextrose 50%-Water Syringe) 12.5 gm PRN Q15MIN PRN IV SEE COMMENTS; Start 03/11/18 at 19:45 Insulin Glargine (Lantus) 5 units QHS SQ ; Start 03/11/18 at 21:00; Stop at 15:46; Status DC Sodium Chloride 1,000 ml @ 75 mls/hr [id number] IV Last administered on at 14:47; Start 03/11/18 at 19:45 Atorvastatin Calcium (Lipitor) 40 mg HS PO Last administered on 03/13/18at 20:52 ; Start 03/11/18 at 21:00 Fluoxetine HCl (PROzac) 20 mg HS PO Last administered on 03/12/18at 20:58; Start 03/11/18 at 21:00; Stop 03/13/18 at 14:10; Status DC Ondansetron HCl (Zofran Odt) 4 mg PRN Q8HRS PRN PO NAUSEA; Start 03/11/18 at 20 :00 Acetaminophen/ Butalbital/ Caffeine (Fioricet) 1 tab PRN Q6HRS PRN PO MIGRAINE HEADACHE; Start 03/11/18 at 20:00 Gabapentin (Neurontin) 300 mg TID PO Last administered on 03/14/18at 14:45; Start 03/11/18 at 21:00 Montelukast Sodium (Singulair) 10 mg QHS PO Last administered on 03/13/18at 20: 52; Start 03/11/18 at 21:00 Linagliptin (Tradjenta) 5 mg DAILY PO Last administered on 03/14/18at 12:25; Start 03/12/18 at 09:00 Fluoxetine HCl (PROzac) 20 mg DAILYWBKFT PO Last administered on 03/14/18at 12: 25; Start 03/12/18 at 08:00 Insulin Glargine (Lantus) 10 units QHS SQ Last administered on 03/13/18at 20:59 ; Start 03/12/18 at 21:00 Metformin HCl (Glucophage Xr) 500 mg DAILYWBKFT PO Last administered on at 12:25; Start 03/14/18 at 08:00 Lactic Acid (Lac-Hydrin) 1 reddy PRN BID PRN TP ITCHING; Start 03/12/18 at 22:00 Iron Sucrose 500 mg/Sodium Chloride 275 ml @ 78.571 mls/ hr 1X ONCE IV Last administered on 03/13/18at 15:09; Start 03/13/18 at 14:30; Stop 03/13/18 at 17:59 ; Status DC Ferrous Sulfate (Feosol) 325 mg DAILYWBKFT PO Last administered on 03/14/18at 12 :25; Start 03/14/18 at 08:00 Cyanocobalamin (Vitamin B-12) 1,000 mcg DAILY16 IM Last administered on at 17:06; Start 03/13/18 at 16:00; Stop 03/14/18 at 14:04; Status DC Cyanocobalamin (Vitamin B-12) 1,000 mcg DAILY IM Last administered on at 14:46; Start 03/14/18 at 09:00; Stop 03/20/18 at 08:59 Midazolam HCl (Versed) 2 mg STK-MED ONCE .ROUTE ; Start 03/14/18 at 08:55; Stop 03/14/18 at 08:56; Status DC Fentanyl Citrate (Fentanyl 2ml Vial) 100 mcg STK-MED ONCE .ROUTE ; Start at 08:55; Stop 03/14/18 at 08:56; Status DC Flumazenil (Romazicon) 0.5 mg STK-MED ONCE IV ; Start 03/14/18 at 08:55; Stop 03/14/18 at 08:56; Status DC Naloxone HCl (Narcan) 0.4 mg STK-MED ONCE .ROUTE ; Start 03/14/18 at 08:55; Stop 03/14/18 at 08:56; Status DC Lidocaine/Sodium Bicarbonate (Buffered Lidocaine 1%) 3 ml 1X ONCE IJ Last administered on 03/14/18at 09:15; Start 03/14/18 at 09:15; Stop 03/14/18 at 09:16 ; Status DC Midazolam HCl (Versed) 2 mg 1X ONCE IV Last administered on 03/14/18at 09:15; Start 03/14/18 at 09:15; Stop 03/14/18 at 09:16; Status DC Fentanyl Citrate (Fentanyl 2ml Vial) 100 mcg 1X ONCE IV Last administered on 03/14/18at 09:15; Start 03/14/18 at 09:15; Stop 03/14/18 at 09:16; Status DC Polyethylene Glycol (miraLAX Powder BULK BOTTLE) 238 gm 1X ONCE PO ; Start 03/15/18 at 13:00; Stop 03/15/18 at 13:01 Magnesium Citrate (Citroma) 296 ml 1X ONCE PO ; Start 03/15/18 at 12:00; Stop 03/15/18 at 12:01 Bisacodyl (Dulcolax Tab) 10 mg PRN DAILY PRN PO CONSTIPATION; Start 03/15/18 at 12:00 Active Scripts Active Gabapentin 300 Mg Capsule 300 Mg PO TID Zofran Odt (Ondansetron) 4 Mg Tab.rapdis 1 Tab SL Q8HRS Fioricet 50-300-40 Mg Capsule (Butalb/Acetaminophen/Caffeine) 1 Each Capsule 1 Each PO Q6HRS PRN Reported Lantus Solostar (Insulin Glargine,Hum.rec.anlog) 100 Unit/1 Ml Insuln.pen 10 Unit SQ QHS Levocetirizine Dihydrochloride 5 Mg Tablet 5 Mg Loratadine 10 Mg Tablet 10 Prozac (Fluoxetine Hcl) 20 Mg Capsule 1 Cap PO DAILYWBKFT Atorvastatin Calcium 40 Mg Tablet PO DAILY Januvia (Sitagliptin Phosphate) 100 Mg Tablet 100 PO DAILY Montelukast Sodium Tablet (Montelukast Sodium) 10 Mg Tablet 10 PO DAILY Metformin Hcl Er (Metformin Hcl) 500 Mg Tab.er.24h 500 PO DAILY Vitals/I & O Vital Sign - Last 24 Hours 03/13/18 03/14/18 03/14/18 03/14/18 23:20 03:20 07:00 08:00 Temp 98.5 98.2 96.4 98.5 98.2 96.4 Pulse 60 60 62 Resp 16 16 16 B/P (MAP) 116/62 (80) 115/59 (77) 127/79 (95) Pulse Ox 97 97 99 O2 Delivery Room Air Room Air Room Air Room Air O2 Flow Rate 2.0 03/14/18 03/14/18 03/14/18 03/14/18 09:07 09:12 09:15 09:17 Pulse 61 60 60 Resp 16 11 13 13 B/P (MAP) 139/84 (102) 114/78 (90) Pulse Ox 99 99 98 O2 Delivery Nasal Cannula Nasal Cannula Nasal Cannula O2 Flow Rate 2.0 2.0 2.0 03/14/18 03/14/18 03/14/18 03/14/18 09:22 09:45 11:00 15:00 Temp 98.1 97.2 98.1 97.2 Pulse 60 63 63 Resp 13 17 16 20 B/P (MAP) 115/76 (89) 134/82 (99) Pulse Ox 99 97 97 O2 Delivery Nasal Cannula Room Air Room Air Room Air O2 Flow Rate 2.0 03/14/18 19:20 Temp 97.9 97.9 Pulse 65 Resp 18 B/P (MAP) 138/84 (102) Pulse Ox 96 O2 Delivery Room Air Intake and Output 03/13/18 03/13/18 03/14/18 15:00 23:00 07:00 Intake Total 1780 ml 480 ml Balance 1780 ml 480 ml YVES RIDDLE MD Mar 14, 2018 21:19
[2018-03-14] MEDS: MONTELUKAST SODIUM 10 MG TABLET. PO SCH (21:20)
[2018-03-14] MEDS: ATORVASTATIN CALCIUM 40 MG TABLET. PO SCH (21:20)
[2018-03-14] MEDS: INSULIN GLARGINE 300 UNITS/3 ML INSULN.PEN. SQ SCH (21:30)
[2018-03-15 03:25] VITALS: BP 146/78
[2018-03-15 07:00] VITALS: BP 134/78
[2018-03-15] MEDS: INSULIN LISPRO 300 UNITS/3 ML INSULN.PEN. SQ SCH ×3 (08:00→18:16)
[2018-03-15 09:04] LABS: BASO % 1 % (0-3); EOS # 0.1 x10^3/uL (0.0-0.7); EOS % 4 % (0-3); HEMATOCRIT 25.7 % (39.0-53.0); HEMOGLOBIN 8.4 g/dL (13.0-17.5); LYMPH # 0.6 x10^3/uL (1.0-4.8); LYMPH % 19 % (24-48); MEAN CORPUSCULAR HEMOGLOBIN 24 pg (25-35); MEAN CORPUSCULAR HGB CONC 32 g/dL (31-37); MEAN CORPUSCULAR VOLUME 74 fL (79-100); MONO # 0.3 x10^3/uL (0.0-1.1); MONO % 8 % (0-9); NEUT # 2.1 x10^3uL (1.8-7.7); NEUT % 68 % (31-73); PLATELET COUNT 80 x10^3/uL (140-400); RED BLOOD COUNT 3.46 x10^6/uL (4.30-5.70); RED CELL DISTRIBUTION WIDTH 25.8 % (11.5-14.5); WHITE BLOOD COUNT 3.1 x10^3/uL (4.0-11.0)
[2018-03-15] MEDS: CYANOCOBALAMIN (VITAMIN B-12) 1,000 MCG/ML VIAL IM SCH (09:05)
[2018-03-15] MEDS: metFORMIN XR 500 MG TAB.ER.24H PO SCH (09:06)
[2018-03-15] MEDS: GABAPENTIN 300 MG CAPSULE. PO SCH ×3 (09:06→21:35)
[2018-03-15] MEDS: LINAGLIPTIN 5 MG TABLET PO SCH (09:06)
[2018-03-15] MEDS: FLUoxetine HCL 20 MG CAPSULE PO SCH (09:06)
[2018-03-15] MEDS: FERROUS SULFATE 325 MG TABLET. PO SCH (09:06)
[2018-03-15 09:57] LABS: ANISOCYTOSIS MOD; PLT ESTIMATE DECREASED (ADEQUATE)
[2018-03-15 09:58] LABS: OVALOCYTES OCC
[2018-03-15 10:01] LABS: CALCIUM 8.3 mg/dL (8.5-10.1); CREATININE 0.8 mg/dL (0.7-1.3); GFR 103.2; POTASSIUM 3.8 mmol/L (3.5-5.1); TOTAL BILIRUBIN 0.7 mg/dL (0.2-1.0)
[2018-03-15 11:00] VITALS: BP 137/83
--- NOTE | 2018-03-15 11:00 | PDOC ---
Subjective: Subjective: Had clear liquids for breakfast, feels okay. Now says he never had a colonoscopy but thinks he had polyps. Has questions about the procedure. Objective: Vital Signs: Vital Signs Date Time Temp Pulse Resp B/P (MAP) Pulse Ox O2 Delivery O2 Flow Rate FiO2 03/15/18 07:00 97.6 56 16 134/78 (96) 99 Room Air 97.6 03/14/18 20:00 2.0 Labs: Laboratory Tests Test 03/14/18 11:20 03/14/18 11:50 03/14/18 17:05 03/14/18 20:36 Glucose (Fingerstick) 112 mg/dL 115 mg/dL 154 mg/dL White Blood Count 3.6 x10^3/uL Red Blood Count 3.64 x10^6/uL Hemoglobin 8.8 g/dL Hematocrit 27.1 % Mean Corpuscular Volume 75 fL Mean Corpuscular Hemoglobin 24 pg Mean Corpuscular Hemoglobin Concent 33 g/dL Red Cell Distribution Width 25.2 % Platelet Count 86 x10^3/uL Test 03/15/18 08:10 03/15/18 08:30 Glucose (Fingerstick) 96 mg/dL White Blood Count 3.1 x10^3/uL Red Blood Count 3.46 x10^6/uL Hemoglobin 8.4 g/dL Hematocrit 25.7 % Mean Corpuscular Volume 74 fL Mean Corpuscular Hemoglobin 24 pg Mean Corpuscular Hemoglobin Concent 32 g/dL Red Cell Distribution Width 25.8 % Platelet Count 80 x10^3/uL Neutrophils (%) (Auto) 68 % Lymphocytes (%) (Auto) 19 % Monocytes (%) (Auto) 8 % Eosinophils (%) (Auto) 4 % Basophils (%) (Auto) 1 % Neutrophils # (Auto) 2.1 x10^3uL Lymphocytes # (Auto) 0.6 x10^3/uL Monocytes # (Auto) 0.3 x10^3/uL Eosinophils # (Auto) 0.1 x10^3/uL Basophils # (Auto) 0.0 x10^3/uL Platelet Estimate Decreased Anisocytosis Mod Ovalocytes Occ Sodium Level 138 mmol/L Potassium Level 3.8 mmol/L Chloride Level 103 mmol/L Carbon Dioxide Level 27 mmol/L Anion Gap 8 Blood Urea Nitrogen 6 mg/dL Creatinine 0.8 mg/dL Estimated GFR (Cockcroft-Gault) 103.2 BUN/Creatinine Ratio 8 Glucose Level 104 mg/dL Calcium Level 8.3 mg/dL Total Bilirubin 0.7 mg/dL Aspartate Amino Transf (AST/SGOT) 16 U/L Alanine Aminotransferase (ALT/SGPT) 24 U/L Alkaline Phosphatase 85 U/L Total Protein 6.0 g/dL Albumin 3.0 g/dL Albumin/Globulin Ratio 1.0 PE: GEN: NAD LUNGS: CTAB HEART: RRR ABD: S/ND/NT NEURO/PSYCH: A & O 3 A/P: Pancytopenia H/o heavy alcohol use -- S/p bone marrow biopsy - pending. Continue iron and B12. Plans for EGD and colonoscopy tomorrow after prep - answered his questions about procedures to his satisfaction. ANGUS NAVARRO Mar 15, 2018 11:00
[2018-03-15] MEDS ORDERED: MAGNESIUM CITRATE 296 ML SOLUTION. PO ONE (12:00)
[2018-03-15] MEDS ORDERED: BISACODYL 5 MG TABLET.DR. PO PRN (12:00)
[2018-03-15] MEDS ORDERED: POLYETHYLENE GLYCOL 3350 238 GM POWDER PO ONE (13:00)
[2018-03-15 15:00] VITALS: BP 149/82
[2018-03-15] MEDS: FAMOTIDINE 20 MG TABLET. PO SCH ×2 (15:25→21:35)
[2018-03-15] MEDS: IV NORMAL SALINE 1000ML BAG 1,000 ML IV SCH (17:05)
[2018-03-15 19:47] VITALS: BP 146/84
[2018-03-15] MEDS: MONTELUKAST SODIUM 10 MG TABLET. PO SCH (21:35)
[2018-03-15] MEDS: ATORVASTATIN CALCIUM 40 MG TABLET. PO SCH (21:35)
[2018-03-15] MEDS: INSULIN GLARGINE 300 UNITS/3 ML INSULN.PEN. SQ SCH (21:37)
[2018-03-15 23:14] VITALS: BP 142/102
--- NOTE | 2018-03-16 00:21 | PDOC ---
PROGRESS NOTES Chief Complaint Chief Complaint Shortness of breath with generalized weakness Pancytopenia History of Present Illness History of Present Illness 47-year-old male presents to ER for complaints of generalized weakness and fatigue. Found with Hb 5.7 and low WBC and platelets, s/p transfusion Hb came to 7.7. Patient states he has had generalized body aches, sinus drainage, dry cough, sore throat, and bilateral earache. This was why his pcp placed him on antibiotics last week. Patient states he is diabetic but does not check his blood sugars and uses both insulin and takes pills. he used to drink heavy but state since diagnosed with diabetes last year has not been drinking at all, he is poor historian but denies being told he has liver problem in the past. on further review today notes he takes up to 14 medications at night and we have not been giving him all his medications. he does not recall the names, have reconciled with pharmacy , now notes he was seeing a psychiatrist in [place], but did not like the [address]. He is still very fatigued today, sleeping most of the day, but was able to work with therapy, has a little more energy now. Patient reports history of anxiety taking daily prescribed medications with previous SI denying any suicidal ideations at this time reporting his medications have improved his anxiety. 1- Pancytopenia , etiology not clear possibly sequestration/ bone marrow/MDS. GI and heme consult - BM bx today as this persists. He could be on anti- psychotic medication as well since he states he takes more mood meds, will need full med rec, however this was not the case. His prior ETOH use and likely underlying cirrhosis appear to be the etiology, however he also has concomitant iron and b12 deficiencies which are now being replaced. NPO after midnight for colonoscopy and EGD in AM with GI 2- abnormal liver and possibility of liver cirrhosis he claims does not drink ETOH since diagnosed with DM, check hep profile and liver sono. He consents to hepatitis testing and HIV testing 3-DM II - will cont sliding scale for elevated BG 4-Anxiety and depression - on SSRI, by his history he may be on a mood stabilizer as well, which could account for his pancytopenia 5-HLD/HTN - will cont to treat in house, needs close BP monitoring 6-Autism/Asberger's - flat affect. Will have psych to see and social work as his [id number] is concerned she had to pay his rent in order to prevent his eviction yesterday. Vitals Vitals Vital Signs Date Time Temp Pulse Resp B/P (MAP) Pulse Ox O2 Delivery O2 Flow Rate FiO2 03/15/18 20:10 Room Air 03/15/18 19:47 97.7 66 18 146/84 (104) 99 97.7 03/15/18 08:00 2.0 Physical Exam General: Alert, Oriented X3, No acute distress Heart: Normal S1, Normal S2 Lungs: Clear, Wheezing Abdomen: Normal bowel sounds, No tenderness Extremities: No clubbing, No cyanosis, No edema, Normal pulses Skin: No rashes, No significant lesion Labs LABS Laboratory Tests Test 03/15/18 08:10 03/15/18 08:30 03/15/18 12:12 03/15/18 17:32 Glucose (Fingerstick) 96 mg/dL (70-99) 120 mg/dL (70-99) 179 mg/dL (70-99) White Blood Count 3.1 x10^3/uL (4.0-11.0) Red Blood Count 3.46 x10^6/uL (4.30-5.70) Hemoglobin 8.4 g/dL (13.0-17.5) Hematocrit 25.7 % (39.0-53.0) Mean Corpuscular Volume 74 fL (79-100) Mean Corpuscular Hemoglobin 24 pg (25-35) Mean Corpuscular Hemoglobin Concent 32 g/dL (31-37) Red Cell Distribution Width 25.8 % (11.5-14.5) Platelet Count 80 x10^3/uL (140-400) Neutrophils (%) (Auto) 68 % (31-73) Lymphocytes (%) (Auto) 19 % (24-48) Monocytes (%) (Auto) 8 % (0-9) Eosinophils (%) (Auto) 4 % (0-3) Basophils (%) (Auto) 1 % (0-3) Neutrophils # (Auto) 2.1 x10^3uL (1.8-7.7) Lymphocytes # (Auto) 0.6 x10^3/uL (1.0-4.8) Monocytes # (Auto) 0.3 x10^3/uL (0.0-1.1) Eosinophils # (Auto) 0.1 x10^3/uL (0.0-0.7) Basophils # (Auto) 0.0 x10^3/uL (0.0-0.2) Platelet Estimate Decreased (ADEQUATE) Anisocytosis Mod Ovalocytes Occ Sodium Level 138 mmol/L (136-145) Potassium Level 3.8 mmol/L (3.5-5.1) Chloride Level 103 mmol/L (98-107) Carbon Dioxide Level 27 mmol/L (21-32) Anion Gap 8 (6-14) Blood Urea Nitrogen 6 mg/dL (8-26) Creatinine 0.8 mg/dL (0.7-1.3) Estimated GFR (Cockcroft-Gault) 103.2 BUN/Creatinine Ratio 8 (6-20) Glucose Level 104 mg/dL (70-99) Calcium Level 8.3 mg/dL (8.5-10.1) Total Bilirubin 0.7 mg/dL (0.2-1.0) Aspartate Amino Transf (AST/SGOT) 16 U/L (15-37) Alanine Aminotransferase (ALT/SGPT) 24 U/L (16-63) Alkaline Phosphatase 85 U/L (46-116) Total Protein 6.0 g/dL (6.4-8.2) Albumin 3.0 g/dL (3.4-5.0) Albumin/Globulin Ratio 1.0 (1.0-1.7) Test 03/15/18 21:36 Glucose (Fingerstick) 95 mg/dL (70-99) Assessment and Plan Assessmemt and Plan Problems Medical Problems: (1) Dyspnea Status: Acute (2) Generalized weakness Status: Acute (3) Low hemoglobin and low hematocrit Status: Acute Comment Review of Relevant I have reviewed the following items ana (where applicable) has been applied. Labs Laboratory Tests Test 03/14/18 07:17 03/14/18 11:20 03/14/18 11:50 03/14/18 17:05 Glucose (Fingerstick) 106 mg/dL (70-99) 112 mg/dL (70-99) 115 mg/dL (70-99) White Blood Count 3.6 x10^3/uL (4.0-11.0) Red Blood Count 3.64 x10^6/uL (4.30-5.70) Hemoglobin 8.8 g/dL (13.0-17.5) Hematocrit 27.1 % (39.0-53.0) Mean Corpuscular Volume 75 fL (79-100) Mean Corpuscular Hemoglobin 24 pg (25-35) Mean Corpuscular Hemoglobin Concent 33 g/dL (31-37) Red Cell Distribution Width 25.2 % (11.5-14.5) Platelet Count 86 x10^3/uL (140-400) Test 03/14/18 20:36 03/15/18 08:10 03/15/18 08:30 03/15/18 12:12 Glucose (Fingerstick) 154 mg/dL (70-99) 96 mg/dL (70-99) 120 mg/dL (70-99) White Blood Count 3.1 x10^3/uL (4.0-11.0) Red Blood Count 3.46 x10^6/uL (4.30-5.70) Hemoglobin 8.4 g/dL (13.0-17.5) Hematocrit 25.7 % (39.0-53.0) Mean Corpuscular Volume 74 fL (79-100) Mean Corpuscular Hemoglobin 24 pg (25-35) Mean Corpuscular Hemoglobin Concent 32 g/dL (31-37) Red Cell Distribution Width 25.8 % (11.5-14.5) Platelet Count 80 x10^3/uL (140-400) Neutrophils (%) (Auto) 68 % (31-73) Lymphocytes (%) (Auto) 19 % (24-48) Monocytes (%) (Auto) 8 % (0-9) Eosinophils (%) (Auto) 4 % (0-3) Basophils (%) (Auto) 1 % (0-3) Neutrophils # (Auto) 2.1 x10^3uL (1.8-7.7) Lymphocytes # (Auto) 0.6 x10^3/uL (1.0-4.8) Monocytes # (Auto) 0.3 x10^3/uL (0.0-1.1) Eosinophils # (Auto) 0.1 x10^3/uL (0.0-0.7) Basophils # (Auto) 0.0 x10^3/uL (0.0-0.2) Platelet Estimate Decreased (ADEQUATE) Anisocytosis Mod Ovalocytes Occ Sodium Level 138 mmol/L (136-145) Potassium Level 3.8 mmol/L (3.5-5.1) Chloride Level 103 mmol/L (98-107) Carbon Dioxide Level 27 mmol/L (21-32) Anion Gap 8 (6-14) Blood Urea Nitrogen 6 mg/dL (8-26) Creatinine 0.8 mg/dL (0.7-1.3) Estimated GFR (Cockcroft-Gault) 103.2 BUN/Creatinine Ratio 8 (6-20) Glucose Level 104 mg/dL (70-99) Calcium Level 8.3 mg/dL (8.5-10.1) Total Bilirubin 0.7 mg/dL (0.2-1.0) Aspartate Amino Transf (AST/SGOT) 16 U/L (15-37) Alanine Aminotransferase (ALT/SGPT) 24 U/L (16-63) Alkaline Phosphatase 85 U/L (46-116) Total Protein 6.0 g/dL (6.4-8.2) Albumin 3.0 g/dL (3.4-5.0) Albumin/Globulin Ratio 1.0 (1.0-1.7) Test 03/15/18 17:32 03/15/18 21:36 Glucose (Fingerstick) 179 mg/dL (70-99) 95 mg/dL (70-99) Laboratory Tests Test 03/15/18 08:10 03/15/18 08:30 03/15/18 12:12 03/15/18 17:32 Glucose (Fingerstick) 96 mg/dL (70-99) 120 mg/dL (70-99) 179 mg/dL (70-99) White Blood Count 3.1 x10^3/uL (4.0-11.0) Red Blood Count 3.46 x10^6/uL (4.30-5.70) Hemoglobin 8.4 g/dL (13.0-17.5) Hematocrit 25.7 % (39.0-53.0) Mean Corpuscular Volume 74 fL (79-100) Mean Corpuscular Hemoglobin 24 pg (25-35) Mean Corpuscular Hemoglobin Concent 32 g/dL (31-37) Red Cell Distribution Width 25.8 % (11.5-14.5) Platelet Count 80 x10^3/uL (140-400) Neutrophils (%) (Auto) 68 % (31-73) Lymphocytes (%) (Auto) 19 % (24-48) Monocytes (%) (Auto) 8 % (0-9) Eosinophils (%) (Auto) 4 % (0-3) Basophils (%) (Auto) 1 % (0-3) Neutrophils # (Auto) 2.1 x10^3uL (1.8-7.7) Lymphocytes # (Auto) 0.6 x10^3/uL (1.0-4.8) Monocytes # (Auto) 0.3 x10^3/uL (0.0-1.1) Eosinophils # (Auto) 0.1 x10^3/uL (0.0-0.7) Basophils # (Auto) 0.0 x10^3/uL (0.0-0.2) Platelet Estimate Decreased (ADEQUATE) Anisocytosis Mod Ovalocytes Occ Sodium Level 138 mmol/L (136-145) Potassium Level 3.8 mmol/L (3.5-5.1) Chloride Level 103 mmol/L (98-107) Carbon Dioxide Level 27 mmol/L (21-32) Anion Gap 8 (6-14) Blood Urea Nitrogen 6 mg/dL (8-26) Creatinine 0.8 mg/dL (0.7-1.3) Estimated GFR (Cockcroft-Gault) 103.2 BUN/Creatinine Ratio 8 (6-20) Glucose Level 104 mg/dL (70-99) Calcium Level 8.3 mg/dL (8.5-10.1) Total Bilirubin 0.7 mg/dL (0.2-1.0) Aspartate Amino Transf (AST/SGOT) 16 U/L (15-37) Alanine Aminotransferase (ALT/SGPT) 24 U/L (16-63) Alkaline Phosphatase 85 U/L (46-116) Total Protein 6.0 g/dL (6.4-8.2) Albumin 3.0 g/dL (3.4-5.0) Albumin/Globulin Ratio 1.0 (1.0-1.7) Test 03/15/18 21:36 Glucose (Fingerstick) 95 mg/dL (70-99) Medications Current Medications Sodium Chloride 500 ml @ 500 mls/hr 1X ONCE IV Last administered on at 18:46; Start 03/11/18 at 18:00; Stop 03/11/18 at 18:59; Status DC Iohexol (Omnipaque 300 Mg/ml) 75 ml 1X ONCE IV ; Start 03/11/18 at 19:00; Stop 03/11/18 at 19:01; Status DC Info (CONTRAST GIVEN -- Rx MONITORING) 1 each PRN DAILY PRN MC SEE COMMENTS; Start 03/11/18 at 19:00; Stop 03/13/18 at 18:59; Status DC Insulin Human Lispro (HumaLOG) 0-5 UNITS TIDWMEALS SQ Last administered on 03/15at 18:16; Start 03/12/18 at 08:00 Dextrose (Dextrose 50%-Water Syringe) 12.5 gm PRN Q15MIN PRN IV SEE COMMENTS; Start 03/11/18 at 19:45 Insulin Glargine (Lantus) 5 units QHS SQ ; Start 03/11/18 at 21:00; Stop at 15:46; Status DC Sodium Chloride 1,000 ml @ 75 mls/hr [id number] IV Last administered on at 17:05; Start 03/11/18 at 19:45 Atorvastatin Calcium (Lipitor) 40 mg HS PO Last administered on 03/15/18at 21:35 ; Start 03/11/18 at 21:00 Fluoxetine HCl (PROzac) 20 mg HS PO Last administered on 03/12/18at 20:58; Start 03/11/18 at 21:00; Stop 03/13/18 at 14:10; Status DC Ondansetron HCl (Zofran Odt) 4 mg PRN Q8HRS PRN PO NAUSEA; Start 03/11/18 at 20 :00 Acetaminophen/ Butalbital/ Caffeine (Fioricet) 1 tab PRN Q6HRS PRN PO MIGRAINE HEADACHE; Start 03/11/18 at 20:00 Gabapentin (Neurontin) 300 mg TID PO Last administered on 03/15/18at 21:35; Start 03/11/18 at 21:00 Montelukast Sodium (Singulair) 10 mg QHS PO Last administered on 03/15/18at 21: 35; Start 03/11/18 at 21:00 Linagliptin (Tradjenta) 5 mg DAILY PO Last administered on 03/15/18 09:06; Start 03/12/18 at 09:00 Fluoxetine HCl (PROzac) 20 mg DAILYWBKFT PO Last administered on 03/15/18at 09: 06; Start 03/12/18 at 08:00 Insulin Glargine (Lantus) 10 units QHS SQ Last administered on 03/14/18at 21:30 ; Start 03/12/18 at 21:00 Metformin HCl (Glucophage Xr) 500 mg DAILYWBKFT PO Last administered on 09:06; Start 03/14/18 at 08:00 Lactic Acid (Lac-Hydrin) 1 reddy PRN BID PRN TP ITCHING Last administered on 03/15at 21:41; Start 03/12/18 at 22:00 Iron Sucrose 500 mg/Sodium Chloride 275 ml @ 78.571 mls/ hr 1X ONCE IV Last administered on 03/13/18at 15:09; Start 03/13/18 at 14:30; Stop 03/13/18 at 17:59 ; Status DC Ferrous Sulfate (Feosol) 325 mg DAILYWBKFT PO Last administered on 03/15/18at 09 :06; Start 03/14/18 at 08:00 Cyanocobalamin (Vitamin B-12) 1,000 mcg DAILY16 IM Last administered on at 17:06; Start 03/13/18 at 16:00; Stop 03/14/18 at 14:04; Status DC Cyanocobalamin (Vitamin B-12) 1,000 mcg DAILY IM Last administered on at 09:05; Start 03/14/18 at 09:00; Stop 03/20/18 at 08:59 Midazolam HCl (Versed) 2 mg STK-MED ONCE .ROUTE ; Start 03/14/18 at 08:55; Stop 03/14/18 at 08:56; Status DC Fentanyl Citrate (Fentanyl 2ml Vial) 100 mcg STK-MED ONCE .ROUTE ; Start at 08:55; Stop 03/14/18 at 08:56; Status DC Flumazenil (Romazicon) 0.5 mg STK-MED ONCE IV ; Start 03/14/18 at 08:55; Stop 03/14/18 at 08:56; Status DC Naloxone HCl (Narcan) 0.4 mg STK-MED ONCE .ROUTE ; Start 03/14/18 at 08:55; Stop 03/14/18 at 08:56; Status DC Lidocaine/Sodium Bicarbonate (Buffered Lidocaine 1%) 3 ml 1X ONCE IJ Last administered on 03/14/18at 09:15; Start 03/14/18 at 09:15; Stop 03/14/18 at 09:16 ; Status DC Midazolam HCl (Versed) 2 mg 1X ONCE IV Last administered on 03/14/18at 09:15; Start 03/14/18 at 09:15; Stop 03/14/18 at 09:16; Status DC Fentanyl Citrate (Fentanyl 2ml Vial) 100 mcg 1X ONCE IV Last administered on 03/14/18at 09:15; Start 03/14/18 at 09:15; Stop 03/14/18 at 09:16; Status DC Polyethylene Glycol (miraLAX Powder BULK BOTTLE) 238 gm 1X ONCE PO Last administered on 03/15/18at 13:00; Start 03/15/18 at 13:00; Stop 03/15/18 at 13:01 ; Status DC Magnesium Citrate (Citroma) 296 ml 1X ONCE PO Last administered on 03/15/18at 13:11; Start 03/15/18 at 12:00; Stop 03/15/18 at 12:01; Status DC Bisacodyl (Dulcolax Tab) 10 mg PRN DAILY PRN PO CONSTIPATION; Start 03/15/18 at 12:00 Famotidine (Pepcid) 20 mg BID PO Last administered on 03/15/18at 21:35; Start 03/15/18 at 15:00 Hydromorphone HCl (Dilaudid) 0.5 mg PRN Q10MIN PRN IV SEV PAIN, Second choice; Start 03/16/18 at 07:00; Stop 03/16/18 at 18:00 Lidocaine HCl (Xylocaine-Mpf 1% 2ml Vial) 2 ml PRN 1X PRN ID IV START; Start 03/16/18 at 07:00; Stop 03/16/18 at 18:00 Ringer's Solution 1,000 ml @ 30 mls/hr Q24H IV ; Start 03/16/18 at 07:00; Stop 03/16/18 at 18:59 Morphine Sulfate (Morphine Sulfate) 1 mg PRN Q10MIN PRN IV SEVERE PAIN; Start 03/16/18 at 07:00; Stop 03/16/18 at 18:00 Fentanyl Citrate (Fentanyl 2ml Vial) 50 mcg PRN Q5MIN PRN IV MODERATE TO SEVERE PAIN; Start 03/16/18 at 07:00; Stop 03/16/18 at 18:00 Fentanyl Citrate (Fentanyl 2ml Vial) 25 mcg PRN Q5MIN PRN IV MILD PAIN; Start 03/16/18 at 07:00; Stop 03/16/18 at 18:00 Ondansetron HCl (Zofran) 4 mg PRN Q6HRS PRN IV NAUSEA/VOMITING; Start 03/16/18 at 07:00; Stop 03/16/18 at 18:00 Active Scripts Active Gabapentin 300 Mg Capsule 300 Mg PO TID Zofran Odt (Ondansetron) 4 Mg Tab.rapdis 1 Tab SL Q8HRS Fioricet 50-300-40 Mg Capsule (Butalb/Acetaminophen/Caffeine) 1 Each Capsule 1 Each PO Q6HRS PRN Reported Lantus Solostar (Insulin Glargine,Hum.rec.anlog) 100 Unit/1 Ml Insuln.pen 10 Unit SQ QHS Levocetirizine Dihydrochloride 5 Mg Tablet 5 Mg Loratadine 10 Mg Tablet 10 Prozac (Fluoxetine Hcl) 20 Mg Capsule 1 Cap PO DAILYWBKFT Atorvastatin Calcium 40 Mg Tablet PO DAILY Januvia (Sitagliptin Phosphate) 100 Mg Tablet 100 PO DAILY Montelukast Sodium Tablet (Montelukast Sodium) 10 Mg Tablet 10 PO DAILY Metformin Hcl Er (Metformin Hcl) 500 Mg Tab.er.24h 500 PO DAILY Vitals/I & O Vital Sign - Last 24 Hours 03/15/18 03/15/18 03/15/18 03/15/18 07:00 08:00 11:00 15:00 Temp 97.6 97.8 98.2 97.6 97.8 98.2 Pulse 56 63 60 Resp 16 16 18 B/P (MAP) 134/78 (96) 137/83 (101) 149/82 (104) Pulse Ox 99 99 97 O2 Delivery Room Air Room Air Room Air Room Air O2 Flow Rate 2.0 03/15/18 03/15/18 19:47 20:10 Temp 97.7 97.7 Pulse 66 Resp 18 B/P (MAP) 146/84 (104) Pulse Ox 99 O2 Delivery Room Air Room Air Intake and Output 03/15/18 03/15/18 03/16/18 15:00 23:00 07:00 Intake Total 500 ml Balance 500 ml YVES RIDDLE MD Mar 16, 2018 00:21
[2018-03-16 02:59] VITALS: BP 134/75
[2018-03-16] MEDS: IV NORMAL SALINE 1000ML BAG 1,000 ML IV SCH ×2 (04:43→21:00)
[2018-03-16 05:14] LABS: BASO % 1 % (0-3); EOS # 0.1 x10^3/uL (0.0-0.7); EOS % 2 % (0-3); HEMATOCRIT 24.9 % (39.0-53.0); HEMOGLOBIN 8.1 g/dL (13.0-17.5); LYMPH # 0.7 x10^3/uL (1.0-4.8); LYMPH % 20 % (24-48); MEAN CORPUSCULAR HEMOGLOBIN 24 pg (25-35); MEAN CORPUSCULAR HGB CONC 33 g/dL (31-37); MEAN CORPUSCULAR VOLUME 75 fL (79-100); MONO # 0.3 x10^3/uL (0.0-1.1); MONO % 7 % (0-9); NEUT # 2.5 x10^3uL (1.8-7.7); NEUT % 70 % (31-73); PLATELET COUNT 80 x10^3/uL (140-400); RED BLOOD COUNT 3.33 x10^6/uL (4.30-5.70); RED CELL DISTRIBUTION WIDTH 25.9 % (11.5-14.5); WHITE BLOOD COUNT 3.6 x10^3/uL (4.0-11.0)
[2018-03-16 05:31] LABS: ALBUMIN 3.2 g/dL (3.4-5.0); ALBUMIN/GLOBULIN RATIO 1.1 (1.0-1.7); CREATININE 0.8 mg/dL (0.7-1.3); GFR 103.2; POTASSIUM 3.9 mmol/L (3.5-5.1); TOTAL PROTEIN 6.2 g/dL (6.4-8.2)
[2018-03-16 07:00] VITALS: BP 136/85
[2018-03-16] MEDS ORDERED: fentaNYL PF VIAL 100 MCG/2 ML VIAL IV PRN ×4 (07:00→11:30)
[2018-03-16] MEDS ORDERED: HYDROmorphone 2 MG/ML VIAL IV PRN (07:00)
[2018-03-16] MEDS ORDERED: MORPHINE SULFATE 2 MG/ML VIAL. IV PRN (07:00)
[2018-03-16] MEDS ORDERED: ONDANSETRON PF 4 MG/2 ML VIAL. IV PRN (07:00)
[2018-03-16] MEDS ORDERED: IV RINGERS,LACTATED 1000ML 1,000 ML IV SCH ×2 (07:00→11:26)
[2018-03-16] MEDS ORDERED: LIDOCAINE 1% PF 2 ML VIAL. ID PRN ×2 (07:00→11:30)
[2018-03-16] MEDS: FLUoxetine HCL 20 MG CAPSULE PO SCH (08:00)
[2018-03-16] MEDS: FERROUS SULFATE 325 MG TABLET. PO SCH (08:00)
[2018-03-16] MEDS: metFORMIN XR 500 MG TAB.ER.24H PO SCH (08:00)
[2018-03-16] MEDS: INSULIN LISPRO 300 UNITS/3 ML INSULN.PEN. SQ SCH ×3 (08:00→17:00)
--- NOTE | 2018-03-16 08:24 | PDOC ---
PROGRESS NOTES Chief Complaint Chief Complaint Shortness of breath with generalized weakness Pancytopenia History of Present Illness History of Present Illness 47-year-old male presents to ER for complaints of generalized weakness and fatigue. Found with Hb 5.7 and low WBC and platelets, s/p transfusion Hb came to 7.7. Patient states he has had generalized body aches, sinus drainage, dry cough, sore throat, and bilateral earache. This was why his pcp placed him on antibiotics last week. Patient states he is diabetic but does not check his blood sugars and uses both insulin and takes pills. he used to drink heavy but state since diagnosed with diabetes last year has not been drinking at all, he is poor historian but denies being told he has liver problem in the past. on further review today notes he takes up to 14 medications at night and we have not been giving him all his medications. he does not recall the names, have reconciled with pharmacy , now notes he was seeing a psychiatrist in [place], but did not like the [address]. He is still very fatigued today, sleeping most of the day, but was able to work with therapy, has a little more energy now. Patient reports history of anxiety taking daily prescribed medications with previous SI denying any suicidal ideations at this time reporting his medications have improved his anxiety. 1- Pancytopenia , etiology not clear possibly sequestration/ bone marrow/MDS. GI and heme consult - s/p BM bx as this persists, result pending. Not due to medication. His prior ETOH use and likely underlying cirrhosis appear to be the etiology, however he also has concomitant iron and b12 deficiencies which are now being replaced. NPO after midnight for colonoscopy and EGD today with GI 2- abnormal liver and possibility of liver cirrhosis he claims does not drink ETOH since diagnosed with DM, check hep profile and liver sono. 3-DM II - will cont sliding scale for elevated BG 4-Anxiety and depression - on SSRI, by his history he may be on a mood stabilizer as well, which could account for his pancytopenia 5-HLD/HTN - will cont to treat in house, needs close BP monitoring 6-Autism/Asberger's - flat affect. Will have psych to see and social work as his phocva-ma-upl is concerned she had to pay his rent in order to prevent his eviction yesterday. Vitals Vitals Vital Signs Date Time Temp Pulse Resp B/P (MAP) Pulse Ox O2 Delivery O2 Flow Rate FiO2 03/16/18 07:52 Room Air 03/16/18 07:00 98.1 63 18 136/85 (102) 99 98.1 03/15/18 08:00 2.0 Physical Exam General: Alert, Oriented X3, No acute distress Heart: Normal S1, Normal S2 Lungs: Clear, Wheezing Abdomen: Normal bowel sounds, No tenderness Extremities: No clubbing, No cyanosis, No edema, Normal pulses Skin: No rashes, No significant lesion Labs LABS Laboratory Tests Test 03/15/18 08:30 03/15/18 12:12 03/15/18 17:32 03/15/18 21:36 White Blood Count 3.1 x10^3/uL (4.0-11.0) Red Blood Count 3.46 x10^6/uL (4.30-5.70) Hemoglobin 8.4 g/dL (13.0-17.5) Hematocrit 25.7 % (39.0-53.0) Mean Corpuscular Volume 74 fL (79-100) Mean Corpuscular Hemoglobin 24 pg (25-35) Mean Corpuscular Hemoglobin Concent 32 g/dL (31-37) Red Cell Distribution Width 25.8 % (11.5-14.5) Platelet Count 80 x10^3/uL (140-400) Neutrophils (%) (Auto) 68 % (31-73) Lymphocytes (%) (Auto) 19 % (24-48) Monocytes (%) (Auto) 8 % (0-9) Eosinophils (%) (Auto) 4 % (0-3) Basophils (%) (Auto) 1 % (0-3) Neutrophils # (Auto) 2.1 x10^3uL (1.8-7.7) Lymphocytes # (Auto) 0.6 x10^3/uL (1.0-4.8) Monocytes # (Auto) 0.3 x10^3/uL (0.0-1.1) Eosinophils # (Auto) 0.1 x10^3/uL (0.0-0.7) Basophils # (Auto) 0.0 x10^3/uL (0.0-0.2) Platelet Estimate Decreased (ADEQUATE) Anisocytosis Mod Ovalocytes Occ Sodium Level 138 mmol/L (136-145) Potassium Level 3.8 mmol/L (3.5-5.1) Chloride Level 103 mmol/L (98-107) Carbon Dioxide Level 27 mmol/L (21-32) Anion Gap 8 (6-14) Blood Urea Nitrogen 6 mg/dL (8-26) Creatinine 0.8 mg/dL (0.7-1.3) Estimated GFR (Cockcroft-Gault) 103.2 BUN/Creatinine Ratio 8 (6-20) Glucose Level 104 mg/dL (70-99) Calcium Level 8.3 mg/dL (8.5-10.1) Total Bilirubin 0.7 mg/dL (0.2-1.0) Aspartate Amino Transf (AST/SGOT) 16 U/L (15-37) Alanine Aminotransferase (ALT/SGPT) 24 U/L (16-63) Alkaline Phosphatase 85 U/L (46-116) Total Protein 6.0 g/dL (6.4-8.2) Albumin 3.0 g/dL (3.4-5.0) Albumin/Globulin Ratio 1.0 (1.0-1.7) Glucose (Fingerstick) 120 mg/dL (70-99) 179 mg/dL (70-99) 95 mg/dL (70-99) Test 03/16/18 03:30 03/16/18 07:26 White Blood Count 3.6 x10^3/uL (4.0-11.0) Red Blood Count 3.33 x10^6/uL (4.30-5.70) Hemoglobin 8.1 g/dL (13.0-17.5) Hematocrit 24.9 % (39.0-53.0) Mean Corpuscular Volume 75 fL (79-100) Mean Corpuscular Hemoglobin 24 pg (25-35) Mean Corpuscular Hemoglobin Concent 33 g/dL (31-37) Red Cell Distribution Width 25.9 % (11.5-14.5) Platelet Count 80 x10^3/uL (140-400) Neutrophils (%) (Auto) 70 % (31-73) Lymphocytes (%) (Auto) 20 % (24-48) Monocytes (%) (Auto) 7 % (0-9) Eosinophils (%) (Auto) 2 % (0-3) Basophils (%) (Auto) 1 % (0-3) Neutrophils # (Auto) 2.5 x10^3uL (1.8-7.7) Lymphocytes # (Auto) 0.7 x10^3/uL (1.0-4.8) Monocytes # (Auto) 0.3 x10^3/uL (0.0-1.1) Eosinophils # (Auto) 0.1 x10^3/uL (0.0-0.7) Basophils # (Auto) 0.0 x10^3/uL (0.0-0.2) Sodium Level 135 mmol/L (136-145) Potassium Level 3.9 mmol/L (3.5-5.1) Chloride Level 102 mmol/L (98-107) Carbon Dioxide Level 27 mmol/L (21-32) Anion Gap 6 (6-14) Blood Urea Nitrogen 5 mg/dL (8-26) Creatinine 0.8 mg/dL (0.7-1.3) Estimated GFR (Cockcroft-Gault) 103.2 BUN/Creatinine Ratio 6 (6-20) Glucose Level 94 mg/dL (70-99) Calcium Level 9.0 mg/dL (8.5-10.1) Total Bilirubin 1.0 mg/dL (0.2-1.0) Aspartate Amino Transf (AST/SGOT) 18 U/L (15-37) Alanine Aminotransferase (ALT/SGPT) 23 U/L (16-63) Alkaline Phosphatase 77 U/L (46-116) Total Protein 6.2 g/dL (6.4-8.2) Albumin 3.2 g/dL (3.4-5.0) Albumin/Globulin Ratio 1.1 (1.0-1.7) Glucose (Fingerstick) 93 mg/dL (70-99) Assessment and Plan Assessmemt and Plan Problems Medical Problems: (1) Dyspnea Status: Acute (2) Generalized weakness Status: Acute (3) Low hemoglobin and low hematocrit Status: Acute Comment Review of Relevant I have reviewed the following items ana (where applicable) has been applied. Labs Laboratory Tests Test 03/14/18 11:20 03/14/18 11:50 03/14/18 17:05 03/14/18 20:36 Glucose (Fingerstick) 112 mg/dL (70-99) 115 mg/dL (70-99) 154 mg/dL (70-99) White Blood Count 3.6 x10^3/uL (4.0-11.0) Red Blood Count 3.64 x10^6/uL (4.30-5.70) Hemoglobin 8.8 g/dL (13.0-17.5) Hematocrit 27.1 % (39.0-53.0) Mean Corpuscular Volume 75 fL (79-100) Mean Corpuscular Hemoglobin 24 pg (25-35) Mean Corpuscular Hemoglobin Concent 33 g/dL (31-37) Red Cell Distribution Width 25.2 % (11.5-14.5) Platelet Count 86 x10^3/uL (140-400) Test 03/15/18 08:10 03/15/18 08:30 03/15/18 12:12 03/15/18 17:32 Glucose (Fingerstick) 96 mg/dL (70-99) 120 mg/dL (70-99) 179 mg/dL (70-99) White Blood Count 3.1 x10^3/uL (4.0-11.0) Red Blood Count 3.46 x10^6/uL (4.30-5.70) Hemoglobin 8.4 g/dL (13.0-17.5) Hematocrit 25.7 % (39.0-53.0) Mean Corpuscular Volume 74 fL (79-100) Mean Corpuscular Hemoglobin 24 pg (25-35) Mean Corpuscular Hemoglobin Concent 32 g/dL (31-37) Red Cell Distribution Width 25.8 % (11.5-14.5) Platelet Count 80 x10^3/uL (140-400) Neutrophils (%) (Auto) 68 % (31-73) Lymphocytes (%) (Auto) 19 % (24-48) Monocytes (%) (Auto) 8 % (0-9) Eosinophils (%) (Auto) 4 % (0-3) Basophils (%) (Auto) 1 % (0-3) Neutrophils # (Auto) 2.1 x10^3uL (1.8-7.7) Lymphocytes # (Auto) 0.6 x10^3/uL (1.0-4.8) Monocytes # (Auto) 0.3 x10^3/uL (0.0-1.1) Eosinophils # (Auto) 0.1 x10^3/uL (0.0-0.7) Basophils # (Auto) 0.0 x10^3/uL (0.0-0.2) Platelet Estimate Decreased (ADEQUATE) Anisocytosis Mod Ovalocytes Occ Sodium Level 138 mmol/L (136-145) Potassium Level 3.8 mmol/L (3.5-5.1) Chloride Level 103 mmol/L (98-107) Carbon Dioxide Level 27 mmol/L (21-32) Anion Gap 8 (6-14) Blood Urea Nitrogen 6 mg/dL (8-26) Creatinine 0.8 mg/dL (0.7-1.3) Estimated GFR (Cockcroft-Gault) 103.2 BUN/Creatinine Ratio 8 (6-20) Glucose Level 104 mg/dL (70-99) Calcium Level 8.3 mg/dL (8.5-10.1) Total Bilirubin 0.7 mg/dL (0.2-1.0) Aspartate Amino Transf (AST/SGOT) 16 U/L (15-37) Alanine Aminotransferase (ALT/SGPT) 24 U/L (16-63) Alkaline Phosphatase 85 U/L (46-116) Total Protein 6.0 g/dL (6.4-8.2) Albumin 3.0 g/dL (3.4-5.0) Albumin/Globulin Ratio 1.0 (1.0-1.7) Test 03/15/18 21:36 03/16/18 03:30 03/16/18 07:26 Glucose (Fingerstick) 95 mg/dL (70-99) 93 mg/dL (70-99) White Blood Count 3.6 x10^3/uL (4.0-11.0) Red Blood Count 3.33 x10^6/uL (4.30-5.70) Hemoglobin 8.1 g/dL (13.0-17.5) Hematocrit 24.9 % (39.0-53.0) Mean Corpuscular Volume 75 fL (79-100) Mean Corpuscular Hemoglobin 24 pg (25-35) Mean Corpuscular Hemoglobin Concent 33 g/dL (31-37) Red Cell Distribution Width 25.9 % (11.5-14.5) Platelet Count 80 x10^3/uL (140-400) Neutrophils (%) (Auto) 70 % (31-73) Lymphocytes (%) (Auto) 20 % (24-48) Monocytes (%) (Auto) 7 % (0-9) Eosinophils (%) (Auto) 2 % (0-3) Basophils (%) (Auto) 1 % (0-3) Neutrophils # (Auto) 2.5 x10^3uL (1.8-7.7) Lymphocytes # (Auto) 0.7 x10^3/uL (1.0-4.8) Monocytes # (Auto) 0.3 x10^3/uL (0.0-1.1) Eosinophils # (Auto) 0.1 x10^3/uL (0.0-0.7) Basophils # (Auto) 0.0 x10^3/uL (0.0-0.2) Sodium Level 135 mmol/L (136-145) Potassium Level 3.9 mmol/L (3.5-5.1) Chloride Level 102 mmol/L (98-107) Carbon Dioxide Level 27 mmol/L (21-32) Anion Gap 6 (6-14) Blood Urea Nitrogen 5 mg/dL (8-26) Creatinine 0.8 mg/dL (0.7-1.3) Estimated GFR (Cockcroft-Gault) 103.2 BUN/Creatinine Ratio 6 (6-20) Glucose Level 94 mg/dL (70-99) Calcium Level 9.0 mg/dL (8.5-10.1) Total Bilirubin 1.0 mg/dL (0.2-1.0) Aspartate Amino Transf (AST/SGOT) 18 U/L (15-37) Alanine Aminotransferase (ALT/SGPT) 23 U/L (16-63) Alkaline Phosphatase 77 U/L (46-116) Total Protein 6.2 g/dL (6.4-8.2) Albumin 3.2 g/dL (3.4-5.0) Albumin/Globulin Ratio 1.1 (1.0-1.7) Laboratory Tests Test 03/15/18 08:30 03/15/18 12:12 03/15/18 17:32 03/15/18 21:36 White Blood Count 3.1 x10^3/uL (4.0-11.0) Red Blood Count 3.46 x10^6/uL (4.30-5.70) Hemoglobin 8.4 g/dL (13.0-17.5) Hematocrit 25.7 % (39.0-53.0) Mean Corpuscular Volume 74 fL (79-100) Mean Corpuscular Hemoglobin 24 pg (25-35) Mean Corpuscular Hemoglobin Concent 32 g/dL (31-37) Red Cell Distribution Width 25.8 % (11.5-14.5) Platelet Count 80 x10^3/uL (140-400) Neutrophils (%) (Auto) 68 % (31-73) Lymphocytes (%) (Auto) 19 % (24-48) Monocytes (%) (Auto) 8 % (0-9) Eosinophils (%) (Auto) 4 % (0-3) Basophils (%) (Auto) 1 % (0-3) Neutrophils # (Auto) 2.1 x10^3uL (1.8-7.7) Lymphocytes # (Auto) 0.6 x10^3/uL (1.0-4.8) Monocytes # (Auto) 0.3 x10^3/uL (0.0-1.1) Eosinophils # (Auto) 0.1 x10^3/uL (0.0-0.7) Basophils # (Auto) 0.0 x10^3/uL (0.0-0.2) Platelet Estimate Decreased (ADEQUATE) Anisocytosis Mod Ovalocytes Occ Sodium Level 138 mmol/L (136-145) Potassium Level 3.8 mmol/L (3.5-5.1) Chloride Level 103 mmol/L (98-107) Carbon Dioxide Level 27 mmol/L (21-32) Anion Gap 8 (6-14) Blood Urea Nitrogen 6 mg/dL (8-26) Creatinine 0.8 mg/dL (0.7-1.3) Estimated GFR (Cockcroft-Gault) 103.2 BUN/Creatinine Ratio 8 (6-20) Glucose Level 104 mg/dL (70-99) Calcium Level 8.3 mg/dL (8.5-10.1) Total Bilirubin 0.7 mg/dL (0.2-1.0) Aspartate Amino Transf (AST/SGOT) 16 U/L (15-37) Alanine Aminotransferase (ALT/SGPT) 24 U/L (16-63) Alkaline Phosphatase 85 U/L (46-116) Total Protein 6.0 g/dL (6.4-8.2) Albumin 3.0 g/dL (3.4-5.0) Albumin/Globulin Ratio 1.0 (1.0-1.7) Glucose (Fingerstick) 120 mg/dL (70-99) 179 mg/dL (70-99) 95 mg/dL (70-99) Test 03/16/18 03:30 03/16/18 07:26 White Blood Count 3.6 x10^3/uL (4.0-11.0) Red Blood Count 3.33 x10^6/uL (4.30-5.70) Hemoglobin 8.1 g/dL (13.0-17.5) Hematocrit 24.9 % (39.0-53.0) Mean Corpuscular Volume 75 fL (79-100) Mean Corpuscular Hemoglobin 24 pg (25-35) Mean Corpuscular Hemoglobin Concent 33 g/dL (31-37) Red Cell Distribution Width 25.9 % (11.5-14.5) Platelet Count 80 x10^3/uL (140-400) Neutrophils (%) (Auto) 70 % (31-73) Lymphocytes (%) (Auto) 20 % (24-48) Monocytes (%) (Auto) 7 % (0-9) Eosinophils (%) (Auto) 2 % (0-3) Basophils (%) (Auto) 1 % (0-3) Neutrophils # (Auto) 2.5 x10^3uL (1.8-7.7) Lymphocytes # (Auto) 0.7 x10^3/uL (1.0-4.8) Monocytes # (Auto) 0.3 x10^3/uL (0.0-1.1) Eosinophils # (Auto) 0.1 x10^3/uL (0.0-0.7) Basophils # (Auto) 0.0 x10^3/uL (0.0-0.2) Sodium Level 135 mmol/L (136-145) Potassium Level 3.9 mmol/L (3.5-5.1) Chloride Level 102 mmol/L (98-107) Carbon Dioxide Level 27 mmol/L (21-32) Anion Gap 6 (6-14) Blood Urea Nitrogen 5 mg/dL (8-26) Creatinine 0.8 mg/dL (0.7-1.3) Estimated GFR (Cockcroft-Gault) 103.2 BUN/Creatinine Ratio 6 (6-20) Glucose Level 94 mg/dL (70-99) Calcium Level 9.0 mg/dL (8.5-10.1) Total Bilirubin 1.0 mg/dL (0.2-1.0) Aspartate Amino Transf (AST/SGOT) 18 U/L (15-37) Alanine Aminotransferase (ALT/SGPT) 23 U/L (16-63) Alkaline Phosphatase 77 U/L (46-116) Total Protein 6.2 g/dL (6.4-8.2) Albumin 3.2 g/dL (3.4-5.0) Albumin/Globulin Ratio 1.1 (1.0-1.7) Glucose (Fingerstick) 93 mg/dL (70-99) Medications Current Medications Sodium Chloride 500 ml @ 500 mls/hr 1X ONCE IV Last administered on at 18:46; Start 03/11/18 at 18:00; Stop 03/11/18 at 18:59; Status DC Iohexol (Omnipaque 300 Mg/ml) 75 ml 1X ONCE IV ; Start 03/11/18 at 19:00; Stop 03/11/18 at 19:01; Status DC Info (CONTRAST GIVEN -- Rx MONITORING) 1 each PRN DAILY PRN MC SEE COMMENTS; Start 03/11/18 at 19:00; Stop 03/13/18 at 18:59; Status DC Insulin Human Lispro (HumaLOG) 0-5 UNITS TIDWMEALS SQ Last administered on 03/15at 18:16; Start 03/12/18 at 08:00 Dextrose (Dextrose 50%-Water Syringe) 12.5 gm PRN Q15MIN PRN IV SEE COMMENTS; Start 03/11/18 at 19:45 Insulin Glargine (Lantus) 5 units QHS SQ ; Start 03/11/18 at 21:00; Stop at 15:46; Status DC Sodium Chloride 1,000 ml @ 75 mls/hr [id number] IV Last administered on 04:43; Start 03/11/18 at 19:45 Atorvastatin Calcium (Lipitor) 40 mg HS PO Last administered on 03/15/18 21:35 ; Start 03/11/18 at 21:00 Fluoxetine HCl (PROzac) 20 mg HS PO Last administered on 03/12/18 20:58; Start 03/11/18 at 21:00; Stop 03/13/18 at 14:10; Status DC Ondansetron HCl (Zofran Odt) 4 mg PRN Q8HRS PRN PO NAUSEA; Start 03/11/18 at 20 :00 Acetaminophen/ Butalbital/ Caffeine (Fioricet) 1 tab PRN Q6HRS PRN PO MIGRAINE HEADACHE; Start 03/11/18 at 20:00 Gabapentin (Neurontin) 300 mg TID PO Last administered on 03/15/18 21:35; Start 03/11/18 at 21:00 Montelukast Sodium (Singulair) 10 mg QHS PO Last administered on 03/15/18 21: 35; Start 03/11/18 at 21:00 Linagliptin (Tradjenta) 5 mg DAILY PO Last administered on 03/15/18 09:06; Start 03/12/18 at 09:00 Fluoxetine HCl (PROzac) 20 mg DAILYWBKFT PO Last administered on 03/15/18 09: 06; Start 03/12/18 at 08:00 Insulin Glargine (Lantus) 10 units QHS SQ Last administered on 03/14/18 21:30 ; Start 03/12/18 at 21:00 Metformin HCl (Glucophage Xr) 500 mg DAILYWBKFT PO Last administered on 09:06; Start 03/14/18 at 08:00 Lactic Acid (Lac-Hydrin) 1 reddy PRN BID PRN TP ITCHING Last administered on 03/15 21:41; Start 03/12/18 at 22:00 Iron Sucrose 500 mg/Sodium Chloride 275 ml @ 78.571 mls/ hr 1X ONCE IV Last administered on 03/13/18 15:09; Start 03/13/18 at 14:30; Stop 03/13/18 at 17:59 ; Status DC Ferrous Sulfate (Feosol) 325 mg DAILYWBKFT PO Last administered on 03/15/18at 09 :06; Start 03/14/18 at 08:00 Cyanocobalamin (Vitamin B-12) 1,000 mcg DAILY16 IM Last administered on at 17:06; Start 03/13/18 at 16:00; Stop 03/14/18 at 14:04; Status DC Cyanocobalamin (Vitamin B-12) 1,000 mcg DAILY IM Last administered on at 09:05; Start 03/14/18 at 09:00; Stop 03/20/18 at 08:59 Midazolam HCl (Versed) 2 mg STK-MED ONCE .ROUTE ; Start 03/14/18 at 08:55; Stop 03/14/18 at 08:56; Status DC Fentanyl Citrate (Fentanyl 2ml Vial) 100 mcg STK-MED ONCE .ROUTE ; Start at 08:55; Stop 03/14/18 at 08:56; Status DC Flumazenil (Romazicon) 0.5 mg STK-MED ONCE IV ; Start 03/14/18 at 08:55; Stop 03/14/18 at 08:56; Status DC Naloxone HCl (Narcan) 0.4 mg STK-MED ONCE .ROUTE ; Start 03/14/18 at 08:55; Stop 03/14/18 at 08:56; Status DC Lidocaine/Sodium Bicarbonate (Buffered Lidocaine 1%) 3 ml 1X ONCE IJ Last administered on 03/14/18at 09:15; Start 03/14/18 at 09:15; Stop 03/14/18 at 09:16 ; Status DC Midazolam HCl (Versed) 2 mg 1X ONCE IV Last administered on 03/14/18at 09:15; Start 03/14/18 at 09:15; Stop 03/14/18 at 09:16; Status DC Fentanyl Citrate (Fentanyl 2ml Vial) 100 mcg 1X ONCE IV Last administered on 03/14/18at 09:15; Start 03/14/18 at 09:15; Stop 03/14/18 at 09:16; Status DC Polyethylene Glycol (miraLAX Powder BULK BOTTLE) 238 gm 1X ONCE PO Last administered on 03/15/18at 13:00; Start 03/15/18 at 13:00; Stop 03/15/18 at 13:01 ; Status DC Magnesium Citrate (Citroma) 296 ml 1X ONCE PO Last administered on 03/15/18at 13:11; Start 03/15/18 at 12:00; Stop 03/15/18 at 12:01; Status DC Bisacodyl (Dulcolax Tab) 10 mg PRN DAILY PRN PO CONSTIPATION; Start 03/15/18 at 12:00 Famotidine (Pepcid) 20 mg BID PO Last administered on 03/15/18at 21:35; Start 03/15/18 at 15:00 Hydromorphone HCl (Dilaudid) 0.5 mg PRN Q10MIN PRN IV SEV PAIN, Second choice; Start 03/16/18 at 07:00; Stop 03/16/18 at 18:00 Lidocaine HCl (Xylocaine-Mpf 1% 2ml Vial) 2 ml PRN 1X PRN ID IV START; Start 03/16/18 at 07:00; Stop 03/16/18 at 18:00 Ringer's Solution 1,000 ml @ 30 mls/hr Q24H IV ; Start 03/16/18 at 07:00; Stop 03/16/18 at 18:59 Morphine Sulfate (Morphine Sulfate) 1 mg PRN Q10MIN PRN IV SEVERE PAIN; Start 03/16/18 at 07:00; Stop 03/16/18 at 18:00 Fentanyl Citrate (Fentanyl 2ml Vial) 50 mcg PRN Q5MIN PRN IV MODERATE TO SEVERE PAIN; Start 03/16/18 at 07:00; Stop 03/16/18 at 18:00 Fentanyl Citrate (Fentanyl 2ml Vial) 25 mcg PRN Q5MIN PRN IV MILD PAIN; Start 03/16/18 at 07:00; Stop 03/16/18 at 18:00 Ondansetron HCl (Zofran) 4 mg PRN Q6HRS PRN IV NAUSEA/VOMITING; Start 03/16/18 at 07:00; Stop 03/16/18 at 18:00 Active Scripts Active Gabapentin 300 Mg Capsule 300 Mg PO TID Zofran Odt (Ondansetron) 4 Mg Tab.rapdis 1 Tab SL Q8HRS Fioricet 50-300-40 Mg Capsule (Butalb/Acetaminophen/Caffeine) 1 Each Capsule 1 Each PO Q6HRS PRN Reported Lantus Solostar (Insulin Glargine,Hum.rec.anlog) 100 Unit/1 Ml Insuln.pen 10 Unit SQ QHS Levocetirizine Dihydrochloride 5 Mg Tablet 5 Mg Loratadine 10 Mg Tablet 10 Prozac (Fluoxetine Hcl) 20 Mg Capsule 1 Cap PO DAILYWBKFT Atorvastatin Calcium 40 Mg Tablet PO DAILY Januvia (Sitagliptin Phosphate) 100 Mg Tablet 100 PO DAILY Montelukast Sodium Tablet (Montelukast Sodium) 10 Mg Tablet 10 PO DAILY Metformin Hcl Er (Metformin Hcl) 500 Mg Tab.er.24h 500 PO DAILY Vitals/I & O Vital Sign - Last 24 Hours 03/15/18 03/15/18 03/15/18 03/15/18 11:00 15:00 19:47 20:10 Temp 97.8 98.2 97.7 97.8 98.2 97.7 Pulse 63 60 66 Resp 16 18 18 B/P (MAP) 137/83 (101) 149/82 (104) 146/84 (104) Pulse Ox 99 97 99 O2 Delivery Room Air Room Air Room Air Room Air 03/15/18 03/16/18 03/16/18 03/16/18 23:14 02:59 07:00 07:52 Temp 97.9 97.6 98.1 97.9 97.6 98.1 Pulse 99 63 63 Resp 18 18 B/P (MAP) 142/102 (115) 134/75 (94) 136/85 (102) Pulse Ox 99 99 O2 Delivery Room Air Room Air Room Air Intake and Output 03/15/18 03/15/18 03/16/18 15:00 23:00 07:00 Intake Total 500 ml 300 ml Balance 500 ml 300 ml YVES RIDDLE MD Mar 16, 2018 08:23
[2018-03-16] MEDS: LINAGLIPTIN 5 MG TABLET PO SCH (09:00)
[2018-03-16] MEDS: GABAPENTIN 300 MG CAPSULE. PO SCH ×3 (09:00→21:07)
[2018-03-16] MEDS: FAMOTIDINE 20 MG TABLET. PO SCH ×2 (09:00→21:07)
[2018-03-16] MEDS: CYANOCOBALAMIN (VITAMIN B-12) 1,000 MCG/ML VIAL IM SCH (09:00)
--- NOTE | 2018-03-16 09:07 | PDOC ---
PROGRESS NOTES Subjective Subjective HPI -f/u of Hypochromic microcytic anemia secondary to iron deficiency. ROS - no bleed Objective Objective Vital Signs Date Time Temp Pulse Resp B/P (MAP) Pulse Ox O2 Delivery O2 Flow Rate FiO2 03/16/18 07:52 Room Air 03/16/18 07:00 98.1 63 18 136/85 (102) 99 98.1 03/15/18 08:00 2.0 Intake and Output 03/16/18 07:00 Intake Total 800 ml Balance 800 ml Intake Oral 800 ml # Voids 3 # Bowel Movements 12 Physical Exam Heart: Normal S1, Normal S2 General: Alert, Oriented X3 Lungs: Clear to auscultation Neuro: Normal speech Psych/Mental Status: Mental status NL Assessment Assessment Problems Medical Problems: (1) Dyspnea Status: Acute (2) Generalized weakness Status: Acute (3) Low hemoglobin and low hematocrit Status: Acute IMPRESSION AND PLAN: 1. Hypochromic microcytic anemia secondary to iron deficiency. He has history of heavy alcohol use in the past. Hence, he would need GI consultation for EGD and colonoscopy to evaluate for any occult bleeding. s/p Venofer 500 mg IV on 03/13/2018 and also started him on oral iron supplementation. Hb 8.1. EGD/Colonoscopy planned for 03/16/18. 2. B12 deficiency. His B12 level is only 204 on 03/12/2018. Started vitamin B12 1000 mg IM daily 03/14/18. 3. Thrombocytopenia. I reviewed old records. The patient has had thrombocytopenia at least since 01/24/2016 when the platelet count was 53. Hence, I suspect that this is due to cirrhosis of the liver, portal hypertension and splenomegaly. s/p bone marrow biopsy 03/14/18 to make sure there are no underlying primary bone marrow disorders. Plt now at 80. 4. Leukopenia, chronic since 01/24/2016 when the WBC count was 2.6. Plan workup as above. WBC now 3.6. 5. Mild splenomegaly, suspected cirrhosis, GI following. f/u with me in 2 weeks for bone marrow results. Comment Review of Relevant I have reviewed the following items ana (where applicable) has been applied. Labs Laboratory Tests Test 03/14/18 11:20 03/14/18 11:50 03/14/18 17:05 03/14/18 20:36 Glucose (Fingerstick) 112 mg/dL (70-99) 115 mg/dL (70-99) 154 mg/dL (70-99) White Blood Count 3.6 x10^3/uL (4.0-11.0) Red Blood Count 3.64 x10^6/uL (4.30-5.70) Hemoglobin 8.8 g/dL (13.0-17.5) Hematocrit 27.1 % (39.0-53.0) Mean Corpuscular Volume 75 fL (79-100) Mean Corpuscular Hemoglobin 24 pg (25-35) Mean Corpuscular Hemoglobin Concent 33 g/dL (31-37) Red Cell Distribution Width 25.2 % (11.5-14.5) Platelet Count 86 x10^3/uL (140-400) Test 03/15/18 08:10 03/15/18 08:30 03/15/18 12:12 03/15/18 17:32 Glucose (Fingerstick) 96 mg/dL (70-99) 120 mg/dL (70-99) 179 mg/dL (70-99) White Blood Count 3.1 x10^3/uL (4.0-11.0) Red Blood Count 3.46 x10^6/uL (4.30-5.70) Hemoglobin 8.4 g/dL (13.0-17.5) Hematocrit 25.7 % (39.0-53.0) Mean Corpuscular Volume 74 fL (79-100) Mean Corpuscular Hemoglobin 24 pg (25-35) Mean Corpuscular Hemoglobin Concent 32 g/dL (31-37) Red Cell Distribution Width 25.8 % (11.5-14.5) Platelet Count 80 x10^3/uL (140-400) Neutrophils (%) (Auto) 68 % (31-73) Lymphocytes (%) (Auto) 19 % (24-48) Monocytes (%) (Auto) 8 % (0-9) Eosinophils (%) (Auto) 4 % (0-3) Basophils (%) (Auto) 1 % (0-3) Neutrophils # (Auto) 2.1 x10^3uL (1.8-7.7) Lymphocytes # (Auto) 0.6 x10^3/uL (1.0-4.8) Monocytes # (Auto) 0.3 x10^3/uL (0.0-1.1) Eosinophils # (Auto) 0.1 x10^3/uL (0.0-0.7) Basophils # (Auto) 0.0 x10^3/uL (0.0-0.2) Platelet Estimate Decreased (ADEQUATE) Anisocytosis Mod Ovalocytes Occ Sodium Level 138 mmol/L (136-145) Potassium Level 3.8 mmol/L (3.5-5.1) Chloride Level 103 mmol/L (98-107) Carbon Dioxide Level 27 mmol/L (21-32) Anion Gap 8 (6-14) Blood Urea Nitrogen 6 mg/dL (8-26) Creatinine 0.8 mg/dL (0.7-1.3) Estimated GFR (Cockcroft-Gault) 103.2 BUN/Creatinine Ratio 8 (6-20) Glucose Level 104 mg/dL (70-99) Calcium Level 8.3 mg/dL (8.5-10.1) Total Bilirubin 0.7 mg/dL (0.2-1.0) Aspartate Amino Transf (AST/SGOT) 16 U/L (15-37) Alanine Aminotransferase (ALT/SGPT) 24 U/L (16-63) Alkaline Phosphatase 85 U/L (46-116) Total Protein 6.0 g/dL (6.4-8.2) Albumin 3.0 g/dL (3.4-5.0) Albumin/Globulin Ratio 1.0 (1.0-1.7) Test 03/15/18 21:36 03/16/18 03:30 03/16/18 07:26 Glucose (Fingerstick) 95 mg/dL (70-99) 93 mg/dL (70-99) White Blood Count 3.6 x10^3/uL (4.0-11.0) Red Blood Count 3.33 x10^6/uL (4.30-5.70) Hemoglobin 8.1 g/dL (13.0-17.5) Hematocrit 24.9 % (39.0-53.0) Mean Corpuscular Volume 75 fL (79-100) Mean Corpuscular Hemoglobin 24 pg (25-35) Mean Corpuscular Hemoglobin Concent 33 g/dL (31-37) Red Cell Distribution Width 25.9 % (11.5-14.5) Platelet Count 80 x10^3/uL (140-400) Neutrophils (%) (Auto) 70 % (31-73) Lymphocytes (%) (Auto) 20 % (24-48) Monocytes (%) (Auto) 7 % (0-9) Eosinophils (%) (Auto) 2 % (0-3) Basophils (%) (Auto) 1 % (0-3) Neutrophils # (Auto) 2.5 x10^3uL (1.8-7.7) Lymphocytes # (Auto) 0.7 x10^3/uL (1.0-4.8) Monocytes # (Auto) 0.3 x10^3/uL (0.0-1.1) Eosinophils # (Auto) 0.1 x10^3/uL (0.0-0.7) Basophils # (Auto) 0.0 x10^3/uL (0.0-0.2) Sodium Level 135 mmol/L (136-145) Potassium Level 3.9 mmol/L (3.5-5.1) Chloride Level 102 mmol/L (98-107) Carbon Dioxide Level 27 mmol/L (21-32) Anion Gap 6 (6-14) Blood Urea Nitrogen 5 mg/dL (8-26) Creatinine 0.8 mg/dL (0.7-1.3) Estimated GFR (Cockcroft-Gault) 103.2 BUN/Creatinine Ratio 6 (6-20) Glucose Level 94 mg/dL (70-99) Calcium Level 9.0 mg/dL (8.5-10.1) Total Bilirubin 1.0 mg/dL (0.2-1.0) Aspartate Amino Transf (AST/SGOT) 18 U/L (15-37) Alanine Aminotransferase (ALT/SGPT) 23 U/L (16-63) Alkaline Phosphatase 77 U/L (46-116) Total Protein 6.2 g/dL (6.4-8.2) Albumin 3.2 g/dL (3.4-5.0) Albumin/Globulin Ratio 1.1 (1.0-1.7) Laboratory Tests Test 03/15/18 12:12 03/15/18 17:32 03/15/18 21:36 03/16/18 03:30 Glucose (Fingerstick) 120 mg/dL (70-99) 179 mg/dL (70-99) 95 mg/dL (70-99) White Blood Count 3.6 x10^3/uL (4.0-11.0) Red Blood Count 3.33 x10^6/uL (4.30-5.70) Hemoglobin 8.1 g/dL (13.0-17.5) Hematocrit 24.9 % (39.0-53.0) Mean Corpuscular Volume 75 fL (79-100) Mean Corpuscular Hemoglobin 24 pg (25-35) Mean Corpuscular Hemoglobin Concent 33 g/dL (31-37) Red Cell Distribution Width 25.9 % (11.5-14.5) Platelet Count 80 x10^3/uL (140-400) Neutrophils (%) (Auto) 70 % (31-73) Lymphocytes (%) (Auto) 20 % (24-48) Monocytes (%) (Auto) 7 % (0-9) Eosinophils (%) (Auto) 2 % (0-3) Basophils (%) (Auto) 1 % (0-3) Neutrophils # (Auto) 2.5 x10^3uL (1.8-7.7) Lymphocytes # (Auto) 0.7 x10^3/uL (1.0-4.8) Monocytes # (Auto) 0.3 x10^3/uL (0.0-1.1) Eosinophils # (Auto) 0.1 x10^3/uL (0.0-0.7) Basophils # (Auto) 0.0 x10^3/uL (0.0-0.2) Sodium Level 135 mmol/L (136-145) Potassium Level 3.9 mmol/L (3.5-5.1) Chloride Level 102 mmol/L (98-107) Carbon Dioxide Level 27 mmol/L (21-32) Anion Gap 6 (6-14) Blood Urea Nitrogen 5 mg/dL (8-26) Creatinine 0.8 mg/dL (0.7-1.3) Estimated GFR (Cockcroft-Gault) 103.2 BUN/Creatinine Ratio 6 (6-20) Glucose Level 94 mg/dL (70-99) Calcium Level 9.0 mg/dL (8.5-10.1) Total Bilirubin 1.0 mg/dL (0.2-1.0) Aspartate Amino Transf (AST/SGOT) 18 U/L (15-37) Alanine Aminotransferase (ALT/SGPT) 23 U/L (16-63) Alkaline Phosphatase 77 U/L (46-116) Total Protein 6.2 g/dL (6.4-8.2) Albumin 3.2 g/dL (3.4-5.0) Albumin/Globulin Ratio 1.1 (1.0-1.7) Test 03/16/18 07:26 Glucose (Fingerstick) 93 mg/dL (70-99) Medications Current Medications Sodium Chloride 500 ml @ 500 mls/hr 1X ONCE IV Last administered on at 18:46; Start 03/11/18 at 18:00; Stop 03/11/18 at 18:59; Status DC Iohexol (Omnipaque 300 Mg/ml) 75 ml 1X ONCE IV ; Start 03/11/18 at 19:00; Stop 03/11/18 at 19:01; Status DC Info (CONTRAST GIVEN -- Rx MONITORING) 1 each PRN DAILY PRN MC SEE COMMENTS; Start 03/11/18 at 19:00; Stop 03/13/18 at 18:59; Status DC Insulin Human Lispro (HumaLOG) 0-5 UNITS TIDWMEALS SQ Last administered on 03/15at 18:16; Start 03/12/18 at 08:00 Dextrose (Dextrose 50%-Water Syringe) 12.5 gm PRN Q15MIN PRN IV SEE COMMENTS; Start 03/11/18 at 19:45 Insulin Glargine (Lantus) 5 units QHS SQ ; Start 03/11/18 at 21:00; Stop at 15:46; Status DC Sodium Chloride 1,000 ml @ 75 mls/hr [id number] IV Last administered on at 04:43; Start 03/11/18 at 19:45 Atorvastatin Calcium (Lipitor) 40 mg HS PO Last administered on 03/15/18at 21:35 ; Start 03/11/18 at 21:00 Fluoxetine HCl (PROzac) 20 mg HS PO Last administered on 03/12/18at 20:58; Start 03/11/18 at 21:00; Stop 03/13/18 at 14:10; Status DC Ondansetron HCl (Zofran Odt) 4 mg PRN Q8HRS PRN PO NAUSEA; Start 03/11/18 at 20 :00 Acetaminophen/ Butalbital/ Caffeine (Fioricet) 1 tab PRN Q6HRS PRN PO MIGRAINE HEADACHE; Start 03/11/18 at 20:00 Gabapentin (Neurontin) 300 mg TID PO Last administered on 03/15/18 21:35; Start 03/11/18 at 21:00 Montelukast Sodium (Singulair) 10 mg QHS PO Last administered on 03/15/18 21: 35; Start 03/11/18 at 21:00 Linagliptin (Tradjenta) 5 mg DAILY PO Last administered on 03/15/18 09:06; Start 03/12/18 at 09:00 Fluoxetine HCl (PROzac) 20 mg DAILYWBKFT PO Last administered on 03/15/18 09: 06; Start 03/12/18 at 08:00 Insulin Glargine (Lantus) 10 units QHS SQ Last administered on 03/14/18 21:30 ; Start 03/12/18 at 21:00 Metformin HCl (Glucophage Xr) 500 mg DAILYWBKFT PO Last administered on 09:06; Start 03/14/18 at 08:00 Lactic Acid (Lac-Hydrin) 1 reddy PRN BID PRN TP ITCHING Last administered on 03/15at 21:41; Start 03/12/18 at 22:00 Iron Sucrose 500 mg/Sodium Chloride 275 ml @ 78.571 mls/ hr 1X ONCE IV Last administered on 03/13/18at 15:09; Start 03/13/18 at 14:30; Stop 03/13/18 at 17:59 ; Status DC Ferrous Sulfate (Feosol) 325 mg DAILYWBKFT PO Last administered on 03/15/18 09 :06; Start 03/14/18 at 08:00 Cyanocobalamin (Vitamin B-12) 1,000 mcg DAILY16 IM Last administered on at 17:06; Start 03/13/18 at 16:00; Stop 03/14/18 at 14:04; Status DC Cyanocobalamin (Vitamin B-12) 1,000 mcg DAILY IM Last administered on at 09:05; Start 03/14/18 at 09:00; Stop 03/20/18 at 08:59 Midazolam HCl (Versed) 2 mg STK-MED ONCE .ROUTE ; Start 03/14/18 at 08:55; Stop 03/14/18 at 08:56; Status DC Fentanyl Citrate (Fentanyl 2ml Vial) 100 mcg STK-MED ONCE .ROUTE ; Start at 08:55; Stop 03/14/18 at 08:56; Status DC Flumazenil (Romazicon) 0.5 mg STK-MED ONCE IV ; Start 03/14/18 at 08:55; Stop 03/14/18 at 08:56; Status DC Naloxone HCl (Narcan) 0.4 mg STK-MED ONCE .ROUTE ; Start 03/14/18 at 08:55; Stop 03/14/18 at 08:56; Status DC Lidocaine/Sodium Bicarbonate (Buffered Lidocaine 1%) 3 ml 1X ONCE IJ Last administered on 03/14/18at 09:15; Start 03/14/18 at 09:15; Stop 03/14/18 at 09:16 ; Status DC Midazolam HCl (Versed) 2 mg 1X ONCE IV Last administered on 03/14/18at 09:15; Start 03/14/18 at 09:15; Stop 03/14/18 at 09:16; Status DC Fentanyl Citrate (Fentanyl 2ml Vial) 100 mcg 1X ONCE IV Last administered on 03/14/18at 09:15; Start 03/14/18 at 09:15; Stop 03/14/18 at 09:16; Status DC Polyethylene Glycol (miraLAX Powder BULK BOTTLE) 238 gm 1X ONCE PO Last administered on 03/15/18at 13:00; Start 03/15/18 at 13:00; Stop 03/15/18 at 13:01 ; Status DC Magnesium Citrate (Citroma) 296 ml 1X ONCE PO Last administered on 03/15/18at 13:11; Start 03/15/18 at 12:00; Stop 03/15/18 at 12:01; Status DC Bisacodyl (Dulcolax Tab) 10 mg PRN DAILY PRN PO CONSTIPATION; Start 03/15/18 at 12:00 Famotidine (Pepcid) 20 mg BID PO Last administered on 03/15/18at 21:35; Start 03/15/18 at 15:00 Hydromorphone HCl (Dilaudid) 0.5 mg PRN Q10MIN PRN IV SEV PAIN, Second choice; Start 03/16/18 at 07:00; Stop 03/16/18 at 18:00 Lidocaine HCl (Xylocaine-Mpf 1% 2ml Vial) 2 ml PRN 1X PRN ID IV START; Start 03/16/18 at 07:00; Stop 03/16/18 at 18:00 Ringer's Solution 1,000 ml @ 30 mls/hr Q24H IV ; Start 03/16/18 at 07:00; Stop 03/16/18 at 18:59 Morphine Sulfate (Morphine Sulfate) 1 mg PRN Q10MIN PRN IV SEVERE PAIN; Start 03/16/18 at 07:00; Stop 03/16/18 at 18:00 Fentanyl Citrate (Fentanyl 2ml Vial) 50 mcg PRN Q5MIN PRN IV MODERATE TO SEVERE PAIN; Start 03/16/18 at 07:00; Stop 03/16/18 at 18:00 Fentanyl Citrate (Fentanyl 2ml Vial) 25 mcg PRN Q5MIN PRN IV MILD PAIN; Start 03/16/18 at 07:00; Stop 03/16/18 at 18:00 Ondansetron HCl (Zofran) 4 mg PRN Q6HRS PRN IV NAUSEA/VOMITING; Start 03/16/18 at 07:00; Stop 03/16/18 at 18:00 Active Scripts Active Gabapentin 300 Mg Capsule 300 Mg PO TID Zofran Odt (Ondansetron) 4 Mg Tab.rapdis 1 Tab SL Q8HRS Fioricet 50-300-40 Mg Capsule (Butalb/Acetaminophen/Caffeine) 1 Each Capsule 1 Each PO Q6HRS PRN Reported Lantus Solostar (Insulin Glargine,Hum.rec.anlog) 100 Unit/1 Ml Insuln.pen 10 Unit SQ QHS Levocetirizine Dihydrochloride 5 Mg Tablet 5 Mg Loratadine 10 Mg Tablet 10 Prozac (Fluoxetine Hcl) 20 Mg Capsule 1 Cap PO DAILYWBKFT Atorvastatin Calcium 40 Mg Tablet PO DAILY Januvia (Sitagliptin Phosphate) 100 Mg Tablet 100 PO DAILY Montelukast Sodium Tablet (Montelukast Sodium) 10 Mg Tablet 10 PO DAILY Metformin Hcl Er (Metformin Hcl) 500 Mg Tab.er.24h 500 PO DAILY Vitals/I & O Vital Sign - Last 24 Hours 03/15/18 03/15/18 03/15/18 03/15/18 11:00 15:00 19:47 20:10 Temp 97.8 98.2 97.7 97.8 98.2 97.7 Pulse 63 60 66 Resp 16 18 18 B/P (MAP) 137/83 (101) 149/82 (104) 146/84 (104) Pulse Ox 99 97 99 O2 Delivery Room Air Room Air Room Air Room Air 03/15/18 03/16/18 03/16/18 03/16/18 23:14 02:59 07:00 07:52 Temp 97.9 97.6 98.1 97.9 97.6 98.1 Pulse 99 63 63 Resp 18 18 B/P (MAP) 142/102 (115) 134/75 (94) 136/85 (102) Pulse Ox 99 99 O2 Delivery Room Air Room Air Room Air Intake and Output 03/15/18 03/15/18 03/16/18 15:00 23:00 07:00 Intake Total 500 ml 300 ml Balance 500 ml 300 ml DANIEL PADILLA MD Mar 16, 2018 09:07
[2018-03-16 11:00] VITALS: BP 140/80
[2018-03-16] MEDS ORDERED: MIDAZOLAM HCL/PF 2 MG/2 ML VIAL. IV PRN (11:30)
--- NOTE | 2018-03-16 14:16 | PDOC4 ---
Operative Note Operative Note EGD/Colonoscopy with polypectomy Meds propofol per anesthesia Pre-op dx iron deficiency anemia Post-op dx esophageal varices grade 2 non-erosive gastritis internal hemorrhoids rectal polyp s/p polypectomy Imp Anemia- most likely multifactorial with alcohol abuse/cirrhosis contributing AFP ;level Advance diet JALYN LIU MD Mar 16, 2018 14:16
--- NOTE | 2018-03-16 16:08 | PATHOLOGY ---
[facility] Accession Number: [id number] . 01 Material submitted: . PART A: BONE MARROW BIOPSY PART B: BONE MARROW CLOT PART C: BONE MARROW ASPIRATE SLIDES PART D: PERIPHERAL SMEAR PART E: BONE MARROW FLOW . 01 Clinician provided ICD-10: D61.818 . 01 Clinical history: . This is a 47-year-old man with pancytopenia, evaluate MGUS (monoclonal gammopathy). . 02 Diagnosis: Bone marrow aspirate, biopsy, cell clot and peripheral blood: - Peripheral blood with pancytopenia including severe microcytic anemia, [id number] leukopenia and moderate thrombocytopenia. - Mildly hypercellular bone marrow with trilineage hematopoiesis, erythroid hyperplasia, mild dyspoiesis and no evidence of lymphoma, acute leukemia or plasma cell dyscrasia. (see comment) . (CLW:mml; 03/16/18) [facility] . 02 Comment: Overall, the bone marrow is mildly hypercellular for the patient's age with trilineage hematopoiesis, erythroid hyperplasia, mild dyspoiesis, and no evidence of lymphoma, acute leukemia or plasma cell dyscrasia. The dyspoiesis is mild and does not meet the morphologic criteria for myelodysplasia. Correlation with clinical history, additional laboratory data and cytogenetics is recommended. . (CLW:mml; 03/16/18) . 02 Electronically signed: . Aissatou Woodward MD, Pathologist NPI- [id number] . 01 Gross description: . A. The specimen is received in formalin, labeled "Dylon Escalante, BM BX" and consists of 4 bone cores measuring between 0.3 cm and 0.7 cm in length and 0.2 cm each in diameter. They are entirely submitted in A1 following decalcification. . B. The specimen is received in formalin, labeled "Dylon Escalante, BM ASP clot" and consists of blood clot measuring 2.5 x 0.7 x 0.1 cm which is entirely submitted in B1. (SDY; 03/14/2018) SYU/SYU . 02 Microscopic: . CBC Data (03/13/18): WBC 2,000/uL, RBC 3.23, hemoglobin 7.7 g/dL, hematocrit 23.8%, MCV 74 fL, MCH 24 pg, MCHC 32 g/dL, RDW 24.9%, and platelet count 81,000/uL. White blood cell differential: (03/12/18): Segs 60%, lymphs 25%, monos 11%, eos 3%, and basos 1%. . Peripheral Blood Smear: Cytomorphological examination of the Kumar's stained peripheral blood smear confirms the provided data. Red blood cells show severe microcytic anemia with anisocytosis. No significant poikilocytosis is identified. No schistocytes or microspherocytes are seen. White blood cells are [id number] decreased in number. They are predominantly segmented neutrophils and are without significant dyspoiesis or significant left shift. Lymphocytes are predominantly small, round, and mature-appearing with condensed chromatin and scant cytoplasm with admixed large granular lymphocytes. On scanning, no markedly atypical lymphoid cells or plasma cells are seen. Monocytes are mature. Platelets are tcma-rm-cmxccgyoiu decreased in number and mainly normal in morphology with rare larger platelets noted. . Aspirate Smear: Cytomorphological examination of the Kumar's stained aspirate smear shows spicules present. The overall cellularity is approximately 70%. The myeloid to erythroid ratio is 1:1. Full myeloid maturation is identified and is without significant dyspoiesis. Erythroid maturation is mildly dyserythropoietic with occasional irregular nuclear contours, binucleate forms and a rare nuclear bud. In a 500-cell differential, there are 1% blasts (no Jason rods are seen), 46% more differentiated myeloids, 47% erythroid precursors, 5% lymphocytes and 1% plasma cells. Megakaryocytes are proportional in number and both normal and abnormal in morphology with variable sizes and nuclear abnormalities. No lymphoid aggregates or markedly atypical lymphoid cells are seen. Plasma cells are without atypia. Iron stain of the aspirate smear shows 1-2/4+ iron positivity with spicules present. No ringed sideroblasts are identified. . Core Biopsy and Cell Clot: The decalcified bone marrow core biopsy is adequate. The bone marrow is mildly hypercellular with an overall cellularity of approximately 60-70%. The myeloid to erythroid ratio is 1:1. Myeloid maturation is without significant dyspoiesis. Erythroid maturation is mildly dyserythropoietic. Megakaryocytes are normal in number and both normal and abnormal in morphology. No lymphoid aggregates or markedly atypical lymphoid cells are seen. Bony trabeculae and blood vessels are unremarkable. The cell clot has spicules present that are similar in cellularity and differential morphology as previously described. . Properly-controlled special stains are performed: . Block A1: Iron: 1/4+ iron positivity Reticulin: No significant reticulin fibrosis . Block B1: Iron: 1/4+ iron positivity with spicules present . Due to the request for evaluation of MGUS, to further quantify and characterize the plasma cells and to identify cells in a tissue architectural context, properly-controlled immunohistochemical stains are performed. . Block A1: CD138: Highlights less than 5% scattered plasma cells [place] and lambda in situ hybridization: Plasma cells are polytypic . Block B1: CD138: Highlights less than 5% scattered plasma cells [place] and lambda in situ hybridization: Plasma cells are polytypic . Flow Cytometry: Flow cytometric immunophenotypic analysis was performed at [facility]. The diagnosis is "left-shifted myeloid maturation with no other diagnostic immunophenotypic abnormalities detected." There are 4.8% lymphocytes. Of the lymphocytes, there are 64% T-cells with a CD4/CD8 ratio of 1.7 and no aberrant T-cell antigen expression and 20% polyclonal B-cells (kappa lambda ratio of 1.0). There are 0.8% CD34 positive cells (blasts) and 1% precursor B cells. Plasma cells are not detected. The clinical history of pancytopenia is noted. Flow detects a left-shifted myeloid maturation pattern, without an increase in CD34 positive blasts (0.8% of total cells). Please see separate flow cytometry report from [facility] ([id number]). . Cytogenetics Analysis: Cytogenetic chromosomal analysis is pending at [facility] ([id number]). . (CLW:patsy; 03/16/18) . 02 Pathologist provided ICD-10: D61.818, D50.9, D72.819 . 02 CPT . 383557, 485783, 344047, 039920, 229628, 674908, 242085, 165248, 065394, [id number], [id number], [id number] Specimen Comment: A courtesy copy of this report has been sent to Specimen Comment: [phone], , . Specimen Comment: Report sent to ,DR WAYNE / DR PADILLA Performed at: 01 [facility] [address] [place] [id number] MD Jonathan Black MD Phone: [phone] Performed at: 02 [facility] [address] [id number] MD Peewee Guillen MD Phone: [phone]
[2018-03-16 19:19] VITALS: BP 128/76
[2018-03-16] MEDS: ATORVASTATIN CALCIUM 40 MG TABLET. PO SCH (21:07)
[2018-03-16] MEDS: MONTELUKAST SODIUM 10 MG TABLET. PO SCH (21:07)
[2018-03-16] MEDS: INSULIN GLARGINE 300 UNITS/3 ML INSULN.PEN. SQ SCH (21:15)
[2018-03-16 23:39] VITALS: BP 139/78
[2018-03-17 03:07] VITALS: BP 141/77
[2018-03-17] MEDS: IV NORMAL SALINE 1000ML BAG 1,000 ML IV SCH (04:01)
[2018-03-17 05:26] LABS: BASO % 2 % (0-3); EOS # 0.1 x10^3/uL (0.0-0.7); EOS % 2 % (0-3); HEMATOCRIT 25.5 % (39.0-53.0); HEMOGLOBIN 8.3 g/dL (13.0-17.5); LYMPH # 0.6 x10^3/uL (1.0-4.8); LYMPH % 24 % (24-48); MEAN CORPUSCULAR HEMOGLOBIN 25 pg (25-35); MEAN CORPUSCULAR HGB CONC 33 g/dL (31-37); MEAN CORPUSCULAR VOLUME 76 fL (79-100); MONO # 0.2 x10^3/uL (0.0-1.1); MONO % 9 % (0-9); NEUT # 1.7 x10^3uL (1.8-7.7); NEUT % 63 % (31-73); PLATELET COUNT 79 x10^3/uL (140-400); RED BLOOD COUNT 3.36 x10^6/uL (4.30-5.70); RED CELL DISTRIBUTION WIDTH 26.5 % (11.5-14.5); WHITE BLOOD COUNT 2.7 x10^3/uL (4.0-11.0)
[2018-03-17 06:04] LABS: ALBUMIN 3.1 g/dL (3.4-5.0); CALCIUM 8.9 mg/dL (8.5-10.1); CREATININE 0.8 mg/dL (0.7-1.3); GFR 103.2; POTASSIUM 4.2 mmol/L (3.5-5.1); TOTAL BILIRUBIN 0.6 mg/dL (0.2-1.0); TOTAL PROTEIN 6.2 g/dL (6.4-8.2)
[2018-03-17 07:29] VITALS: BP 132/75
--- NOTE | 2018-03-17 08:12 | PDOC ---
PROGRESS NOTES Chief Complaint Chief Complaint Shortness of breath with generalized weakness Pancytopenia History of Present Illness History of Present Illness 47-year-old male presents to ER for complaints of generalized weakness and fatigue. Found with Hb 5.7 and low WBC and platelets, s/p transfusion Hb came to 7.7. Patient states he has had generalized body aches, sinus drainage, dry cough, sore throat, and bilateral earache. This was why his pcp placed him on antibiotics last week. Patient states he is diabetic but does not check his blood sugars and uses both insulin and takes pills. he used to drink heavy but state since diagnosed with diabetes last year has not been drinking at all, he is poor historian but denies being told he has liver problem in the past. on further review today notes he takes up to 14 medications at night and we have not been giving him all his medications. he does not recall the names, have reconciled with pharmacy , now notes he was seeing a psychiatrist in [place], but did not like the [address]. He is still very fatigued today, sleeping most of the day, but was able to work with therapy, has a little more energy now. Patient reports history of anxiety taking daily prescribed medications with previous SI denying any suicidal ideations at this time reporting his medications have improved his anxiety. 1- Pancytopenia , etiology not clear possibly sequestration/ bone marrow/MDS. GI and heme consult - s/p BM bx as this persists, result pending. Not due to medication. His prior ETOH use and likely underlying cirrhosis appear to be the etiology, however he also has concomitant iron and b12 deficiencies which are now being replaced. Bone marrow reveals no MDS or other hematologic malignancy 2 - Acute severe anemia - s/p colonoscopy and EGD today with GI - hyperplastic polyp x1, no upper GI 3- abnormal liver and possibility of liver cirrhosis he claims does not drink ETOH since diagnosed with DM, check hep profile and liver sono. 4-DM II - will cont sliding scale for elevated BG 5-Anxiety and depression - on SSRI, by his history he may be on a mood stabilizer as well, which could account for his pancytopenia 6-HLD/HTN - will cont to treat in house, needs close BP monitoring 7-Autism/Asberger's - flat affect. Will have psych to see and social work as his [id number] is concerned she had to pay his rent in order to prevent his eviction yesterday. Vitals Vitals Vital Signs Date Time Temp Pulse Resp B/P (MAP) Pulse Ox O2 Delivery O2 Flow Rate FiO2 03/17/18 07:29 97.5 58 17 132/75 (94) 98 Room Air 97.5 03/16/18 14:20 2.0 Physical Exam General: Alert, Oriented X3 Heart: Normal S1, Normal S2 Lungs: Clear, Wheezing Abdomen: Normal bowel sounds, No tenderness Extremities: No clubbing, No cyanosis, No edema, Normal pulses Skin: No rashes, No significant lesion Labs LABS Laboratory Tests Test 03/16/18 12:13 03/16/18 17:08 03/16/18 20:23 03/17/18 04:34 Glucose (Fingerstick) 93 mg/dL (70-99) 166 mg/dL (70-99) 204 mg/dL (70-99) White Blood Count 2.7 x10^3/uL (4.0-11.0) Red Blood Count 3.36 x10^6/uL (4.30-5.70) Hemoglobin 8.3 g/dL (13.0-17.5) Hematocrit 25.5 % (39.0-53.0) Mean Corpuscular Volume 76 fL (79-100) Mean Corpuscular Hemoglobin 25 pg (25-35) Mean Corpuscular Hemoglobin Concent 33 g/dL (31-37) Red Cell Distribution Width 26.5 % (11.5-14.5) Platelet Count 79 x10^3/uL (140-400) Neutrophils (%) (Auto) 63 % (31-73) Lymphocytes (%) (Auto) 24 % (24-48) Monocytes (%) (Auto) 9 % (0-9) Eosinophils (%) (Auto) 2 % (0-3) Basophils (%) (Auto) 2 % (0-3) Neutrophils # (Auto) 1.7 x10^3uL (1.8-7.7) Lymphocytes # (Auto) 0.6 x10^3/uL (1.0-4.8) Monocytes # (Auto) 0.2 x10^3/uL (0.0-1.1) Eosinophils # (Auto) 0.1 x10^3/uL (0.0-0.7) Basophils # (Auto) 0.0 x10^3/uL (0.0-0.2) Sodium Level 135 mmol/L (136-145) Potassium Level 4.2 mmol/L (3.5-5.1) Chloride Level 101 mmol/L (98-107) Carbon Dioxide Level 28 mmol/L (21-32) Anion Gap 6 (6-14) Blood Urea Nitrogen 8 mg/dL (8-26) Creatinine 0.8 mg/dL (0.7-1.3) Estimated GFR (Cockcroft-Gault) 103.2 BUN/Creatinine Ratio 10 (6-20) Glucose Level 134 mg/dL (70-99) Calcium Level 8.9 mg/dL (8.5-10.1) Total Bilirubin 0.6 mg/dL (0.2-1.0) Aspartate Amino Transf (AST/SGOT) 20 U/L (15-37) Alanine Aminotransferase (ALT/SGPT) 23 U/L (16-63) Alkaline Phosphatase 79 U/L (46-116) Total Protein 6.2 g/dL (6.4-8.2) Albumin 3.1 g/dL (3.4-5.0) Albumin/Globulin Ratio 1.0 (1.0-1.7) Test 03/17/18 07:25 Glucose (Fingerstick) 158 mg/dL (70-99) Assessment and Plan Assessmemt and Plan Problems Medical Problems: (1) Dyspnea Status: Acute (2) Generalized weakness Status: Acute (3) Low hemoglobin and low hematocrit Status: Acute Comment Review of Relevant I have reviewed the following items ana (where applicable) has been applied. Labs Laboratory Tests Test 03/15/18 08:30 03/15/18 12:12 03/15/18 17:32 03/15/18 21:36 White Blood Count 3.1 x10^3/uL (4.0-11.0) Red Blood Count 3.46 x10^6/uL (4.30-5.70) Hemoglobin 8.4 g/dL (13.0-17.5) Hematocrit 25.7 % (39.0-53.0) Mean Corpuscular Volume 74 fL (79-100) Mean Corpuscular Hemoglobin 24 pg (25-35) Mean Corpuscular Hemoglobin Concent 32 g/dL (31-37) Red Cell Distribution Width 25.8 % (11.5-14.5) Platelet Count 80 x10^3/uL (140-400) Neutrophils (%) (Auto) 68 % (31-73) Lymphocytes (%) (Auto) 19 % (24-48) Monocytes (%) (Auto) 8 % (0-9) Eosinophils (%) (Auto) 4 % (0-3) Basophils (%) (Auto) 1 % (0-3) Neutrophils # (Auto) 2.1 x10^3uL (1.8-7.7) Lymphocytes # (Auto) 0.6 x10^3/uL (1.0-4.8) Monocytes # (Auto) 0.3 x10^3/uL (0.0-1.1) Eosinophils # (Auto) 0.1 x10^3/uL (0.0-0.7) Basophils # (Auto) 0.0 x10^3/uL (0.0-0.2) Platelet Estimate Decreased (ADEQUATE) Anisocytosis Mod Ovalocytes Occ Sodium Level 138 mmol/L (136-145) Potassium Level 3.8 mmol/L (3.5-5.1) Chloride Level 103 mmol/L (98-107) Carbon Dioxide Level 27 mmol/L (21-32) Anion Gap 8 (6-14) Blood Urea Nitrogen 6 mg/dL (8-26) Creatinine 0.8 mg/dL (0.7-1.3) Estimated GFR (Cockcroft-Gault) 103.2 BUN/Creatinine Ratio 8 (6-20) Glucose Level 104 mg/dL (70-99) Calcium Level 8.3 mg/dL (8.5-10.1) Total Bilirubin 0.7 mg/dL (0.2-1.0) Aspartate Amino Transf (AST/SGOT) 16 U/L (15-37) Alanine Aminotransferase (ALT/SGPT) 24 U/L (16-63) Alkaline Phosphatase 85 U/L (46-116) Total Protein 6.0 g/dL (6.4-8.2) Albumin 3.0 g/dL (3.4-5.0) Albumin/Globulin Ratio 1.0 (1.0-1.7) Glucose (Fingerstick) 120 mg/dL (70-99) 179 mg/dL (70-99) 95 mg/dL (70-99) Test 03/16/18 03:30 03/16/18 07:26 03/16/18 12:13 03/16/18 17:08 White Blood Count 3.6 x10^3/uL (4.0-11.0) Red Blood Count 3.33 x10^6/uL (4.30-5.70) Hemoglobin 8.1 g/dL (13.0-17.5) Hematocrit 24.9 % (39.0-53.0) Mean Corpuscular Volume 75 fL (79-100) Mean Corpuscular Hemoglobin 24 pg (25-35) Mean Corpuscular Hemoglobin Concent 33 g/dL (31-37) Red Cell Distribution Width 25.9 % (11.5-14.5) Platelet Count 80 x10^3/uL (140-400) Neutrophils (%) (Auto) 70 % (31-73) Lymphocytes (%) (Auto) 20 % (24-48) Monocytes (%) (Auto) 7 % (0-9) Eosinophils (%) (Auto) 2 % (0-3) Basophils (%) (Auto) 1 % (0-3) Neutrophils # (Auto) 2.5 x10^3uL (1.8-7.7) Lymphocytes # (Auto) 0.7 x10^3/uL (1.0-4.8) Monocytes # (Auto) 0.3 x10^3/uL (0.0-1.1) Eosinophils # (Auto) 0.1 x10^3/uL (0.0-0.7) Basophils # (Auto) 0.0 x10^3/uL (0.0-0.2) Sodium Level 135 mmol/L (136-145) Potassium Level 3.9 mmol/L (3.5-5.1) Chloride Level 102 mmol/L (98-107) Carbon Dioxide Level 27 mmol/L (21-32) Anion Gap 6 (6-14) Blood Urea Nitrogen 5 mg/dL (8-26) Creatinine 0.8 mg/dL (0.7-1.3) Estimated GFR (Cockcroft-Gault) 103.2 BUN/Creatinine Ratio 6 (6-20) Glucose Level 94 mg/dL (70-99) Calcium Level 9.0 mg/dL (8.5-10.1) Total Bilirubin 1.0 mg/dL (0.2-1.0) Aspartate Amino Transf (AST/SGOT) 18 U/L (15-37) Alanine Aminotransferase (ALT/SGPT) 23 U/L (16-63) Alkaline Phosphatase 77 U/L (46-116) Total Protein 6.2 g/dL (6.4-8.2) Albumin 3.2 g/dL (3.4-5.0) Albumin/Globulin Ratio 1.1 (1.0-1.7) Glucose (Fingerstick) 93 mg/dL (70-99) 93 mg/dL (70-99) 166 mg/dL (70-99) Test 03/16/18 20:23 03/17/18 04:34 03/17/18 07:25 Glucose (Fingerstick) 204 mg/dL (70-99) 158 mg/dL (70-99) White Blood Count 2.7 x10^3/uL (4.0-11.0) Red Blood Count 3.36 x10^6/uL (4.30-5.70) Hemoglobin 8.3 g/dL (13.0-17.5) Hematocrit 25.5 % (39.0-53.0) Mean Corpuscular Volume 76 fL (79-100) Mean Corpuscular Hemoglobin 25 pg (25-35) Mean Corpuscular Hemoglobin Concent 33 g/dL (31-37) Red Cell Distribution Width 26.5 % (11.5-14.5) Platelet Count 79 x10^3/uL (140-400) Neutrophils (%) (Auto) 63 % (31-73) Lymphocytes (%) (Auto) 24 % (24-48) Monocytes (%) (Auto) 9 % (0-9) Eosinophils (%) (Auto) 2 % (0-3) Basophils (%) (Auto) 2 % (0-3) Neutrophils # (Auto) 1.7 x10^3uL (1.8-7.7) Lymphocytes # (Auto) 0.6 x10^3/uL (1.0-4.8) Monocytes # (Auto) 0.2 x10^3/uL (0.0-1.1) Eosinophils # (Auto) 0.1 x10^3/uL (0.0-0.7) Basophils # (Auto) 0.0 x10^3/uL (0.0-0.2) Sodium Level 135 mmol/L (136-145) Potassium Level 4.2 mmol/L (3.5-5.1) Chloride Level 101 mmol/L (98-107) Carbon Dioxide Level 28 mmol/L (21-32) Anion Gap 6 (6-14) Blood Urea Nitrogen 8 mg/dL (8-26) Creatinine 0.8 mg/dL (0.7-1.3) Estimated GFR (Cockcroft-Gault) 103.2 BUN/Creatinine Ratio 10 (6-20) Glucose Level 134 mg/dL (70-99) Calcium Level 8.9 mg/dL (8.5-10.1) Total Bilirubin 0.6 mg/dL (0.2-1.0) Aspartate Amino Transf (AST/SGOT) 20 U/L (15-37) Alanine Aminotransferase (ALT/SGPT) 23 U/L (16-63) Alkaline Phosphatase 79 U/L (46-116) Total Protein 6.2 g/dL (6.4-8.2) Albumin 3.1 g/dL (3.4-5.0) Albumin/Globulin Ratio 1.0 (1.0-1.7) Laboratory Tests Test 03/16/18 12:13 03/16/18 17:08 03/16/18 20:23 03/17/18 04:34 Glucose (Fingerstick) 93 mg/dL (70-99) 166 mg/dL (70-99) 204 mg/dL (70-99) White Blood Count 2.7 x10^3/uL (4.0-11.0) Red Blood Count 3.36 x10^6/uL (4.30-5.70) Hemoglobin 8.3 g/dL (13.0-17.5) Hematocrit 25.5 % (39.0-53.0) Mean Corpuscular Volume 76 fL (79-100) Mean Corpuscular Hemoglobin 25 pg (25-35) Mean Corpuscular Hemoglobin Concent 33 g/dL (31-37) Red Cell Distribution Width 26.5 % (11.5-14.5) Platelet Count 79 x10^3/uL (140-400) Neutrophils (%) (Auto) 63 % (31-73) Lymphocytes (%) (Auto) 24 % (24-48) Monocytes (%) (Auto) 9 % (0-9) Eosinophils (%) (Auto) 2 % (0-3) Basophils (%) (Auto) 2 % (0-3) Neutrophils # (Auto) 1.7 x10^3uL (1.8-7.7) Lymphocytes # (Auto) 0.6 x10^3/uL (1.0-4.8) Monocytes # (Auto) 0.2 x10^3/uL (0.0-1.1) Eosinophils # (Auto) 0.1 x10^3/uL (0.0-0.7) Basophils # (Auto) 0.0 x10^3/uL (0.0-0.2) Sodium Level 135 mmol/L (136-145) Potassium Level 4.2 mmol/L (3.5-5.1) Chloride Level 101 mmol/L (98-107) Carbon Dioxide Level 28 mmol/L (21-32) Anion Gap 6 (6-14) Blood Urea Nitrogen 8 mg/dL (8-26) Creatinine 0.8 mg/dL (0.7-1.3) Estimated GFR (Cockcroft-Gault) 103.2 BUN/Creatinine Ratio 10 (6-20) Glucose Level 134 mg/dL (70-99) Calcium Level 8.9 mg/dL (8.5-10.1) Total Bilirubin 0.6 mg/dL (0.2-1.0) Aspartate Amino Transf (AST/SGOT) 20 U/L (15-37) Alanine Aminotransferase (ALT/SGPT) 23 U/L (16-63) Alkaline Phosphatase 79 U/L (46-116) Total Protein 6.2 g/dL (6.4-8.2) Albumin 3.1 g/dL (3.4-5.0) Albumin/Globulin Ratio 1.0 (1.0-1.7) Test 03/17/18 07:25 Glucose (Fingerstick) 158 mg/dL (70-99) Medications Current Medications Sodium Chloride 500 ml @ 500 mls/hr 1X ONCE IV Last administered on at 18:46; Start 03/11/18 at 18:00; Stop 03/11/18 at 18:59; Status DC Iohexol (Omnipaque 300 Mg/ml) 75 ml 1X ONCE IV ; Start 03/11/18 at 19:00; Stop 03/11/18 at 19:01; Status DC Info (CONTRAST GIVEN -- Rx MONITORING) 1 each PRN DAILY PRN MC SEE COMMENTS; Start 03/11/18 at 19:00; Stop 03/13/18 at 18:59; Status DC Insulin Human Lispro (HumaLOG) 0-5 UNITS TIDWMEALS SQ Last administered on 03/15at 18:16; Start 03/12/18 at 08:00 Dextrose (Dextrose 50%-Water Syringe) 12.5 gm PRN Q15MIN PRN IV SEE COMMENTS; Start 03/11/18 at 19:45 Insulin Glargine (Lantus) 5 units QHS SQ ; Start 03/11/18 at 21:00; Stop at 15:46; Status DC Sodium Chloride 1,000 ml @ 75 mls/hr [id number] IV Last administered on at 04:01; Start 03/11/18 at 19:45 Atorvastatin Calcium (Lipitor) 40 mg HS PO Last administered on 03/16/18at 21:07 ; Start 03/11/18 at 21:00 Fluoxetine HCl (PROzac) 20 mg HS PO Last administered on 03/12/18at 20:58; Start 03/11/18 at 21:00; Stop 03/13/18 at 14:10; Status DC Ondansetron HCl (Zofran Odt) 4 mg PRN Q8HRS PRN PO NAUSEA; Start 03/11/18 at 20 :00 Acetaminophen/ Butalbital/ Caffeine (Fioricet) 1 tab PRN Q6HRS PRN PO MIGRAINE HEADACHE; Start 03/11/18 at 20:00 Gabapentin (Neurontin) 300 mg TID PO Last administered on 03/16/18at 21:07; Start 03/11/18 at 21:00 Montelukast Sodium (Singulair) 10 mg QHS PO Last administered on 03/16/18at 21: 07; Start 03/11/18 at 21:00 Linagliptin (Tradjenta) 5 mg DAILY PO Last administered on 03/15/18at 09:06; Start 03/12/18 at 09:00 Fluoxetine HCl (PROzac) 20 mg DAILYWBKFT PO Last administered on 03/15/18at 09: 06; Start 03/12/18 at 08:00 Insulin Glargine (Lantus) 10 units QHS SQ Last administered on 03/16/18at 21:15 ; Start 03/12/18 at 21:00 Metformin HCl (Glucophage Xr) 500 mg DAILYWBKFT PO Last administered on at 09:06; Start 03/14/18 at 08:00 Lactic Acid (Lac-Hydrin) 1 reddy PRN BID PRN TP ITCHING Last administered on 03/15at 21:41; Start 03/12/18 at 22:00 Iron Sucrose 500 mg/Sodium Chloride 275 ml @ 78.571 mls/ hr 1X ONCE IV Last administered on 03/13/18at 15:09; Start 03/13/18 at 14:30; Stop 03/13/18 at 17:59 ; Status DC Ferrous Sulfate (Feosol) 325 mg DAILYWBKFT PO Last administered on 03/15/18at 09 :06; Start 03/14/18 at 08:00 Cyanocobalamin (Vitamin B-12) 1,000 mcg DAILY16 IM Last administered on at 17:06; Start 03/13/18 at 16:00; Stop 03/14/18 at 14:04; Status DC Cyanocobalamin (Vitamin B-12) 1,000 mcg DAILY IM Last administered on at 09:00; Start 03/14/18 at 09:00; Stop 03/20/18 at 08:59 Midazolam HCl (Versed) 2 mg STK-MED ONCE .ROUTE ; Start 03/14/18 at 08:55; Stop 03/14/18 at 08:56; Status DC Fentanyl Citrate (Fentanyl 2ml Vial) 100 mcg STK-MED ONCE .ROUTE ; Start at 08:55; Stop 03/14/18 at 08:56; Status DC Flumazenil (Romazicon) 0.5 mg STK-MED ONCE IV ; Start 03/14/18 at 08:55; Stop 03/14/18 at 08:56; Status DC Naloxone HCl (Narcan) 0.4 mg STK-MED ONCE .ROUTE ; Start 03/14/18 at 08:55; Stop 03/14/18 at 08:56; Status DC Lidocaine/Sodium Bicarbonate (Buffered Lidocaine 1%) 3 ml 1X ONCE IJ Last administered on 03/14/18at 09:15; Start 03/14/18 at 09:15; Stop 03/14/18 at 09:16 ; Status DC Midazolam HCl (Versed) 2 mg 1X ONCE IV Last administered on 03/14/18at 09:15; Start 03/14/18 at 09:15; Stop 03/14/18 at 09:16; Status DC Fentanyl Citrate (Fentanyl 2ml Vial) 100 mcg 1X ONCE IV Last administered on 03/14/18at 09:15; Start 03/14/18 at 09:15; Stop 03/14/18 at 09:16; Status DC Polyethylene Glycol (miraLAX Powder BULK BOTTLE) 238 gm 1X ONCE PO Last administered on 03/15/18at 13:00; Start 03/15/18 at 13:00; Stop 03/15/18 at 13:01 ; Status DC Magnesium Citrate (Citroma) 296 ml 1X ONCE PO Last administered on 03/15/18at 13:11; Start 03/15/18 at 12:00; Stop 03/15/18 at 12:01; Status DC Bisacodyl (Dulcolax Tab) 10 mg PRN DAILY PRN PO CONSTIPATION; Start 03/15/18 at 12:00 Famotidine (Pepcid) 20 mg BID PO Last administered on 03/16/18at 21:07; Start 03/15/18 at 15:00 Hydromorphone HCl (Dilaudid) 0.5 mg PRN Q10MIN PRN IV SEV PAIN, Second choice; Start 03/16/18 at 07:00; Stop 03/16/18 at 18:05; Status DC Lidocaine HCl (Xylocaine-Mpf 1% 2ml Vial) 2 ml PRN 1X PRN ID IV START; Start 03/16/18 at 07:00; Stop 03/16/18 at 18:05; Status DC Ringer's Solution 1,000 ml @ 30 mls/hr Q24H IV Last administered on 03/16/18at 12:59; Start 03/16/18 at 07:00; Stop 03/16/18 at 18:03; Status DC Morphine Sulfate (Morphine Sulfate) 1 mg PRN Q10MIN PRN IV SEVERE PAIN; Start 03/16/18 at 07:00; Stop 03/16/18 at 18:05; Status DC Fentanyl Citrate (Fentanyl 2ml Vial) 50 mcg PRN Q5MIN PRN IV MODERATE TO SEVERE PAIN; Start 03/16/18 at 07:00; Stop 03/16/18 at 18:05; Status DC Fentanyl Citrate (Fentanyl 2ml Vial) 25 mcg PRN Q5MIN PRN IV MILD PAIN; Start 03/16/18 at 07:00; Stop 03/16/18 at 18:05; Status DC Ondansetron HCl (Zofran) 4 mg PRN Q6HRS PRN IV NAUSEA/VOMITING; Start 03/16/18 at 07:00; Stop 03/16/18 at 18:05; Status DC Midazolam HCl (Versed) 2 mg PRN 1X PRN IV PRIOR TO PROCEDURE; Start 03/16/18 at 11:30; Stop 03/16/18 at 18:05; Status DC Fentanyl Citrate (Fentanyl 2ml Vial) 25 mcg PRN Q5MIN PRN IV X 2 DOSES FOR PAIN ; Start 03/16/18 at 11:30; Stop 03/16/18 at 18:05; Status DC Fentanyl Citrate (Fentanyl 2ml Vial) 50 mcg PRN Q5MIN PRN IV X 2 DOSES FOR PAIN ; Start 03/16/18 at 11:30; Stop 03/16/18 at 18:05; Status DC Ringer's Solution 1,000 ml @ 125 mls/hr Q8H IV Last administered on 03/16/18at 12:45; Start 03/16/18 at 11:26; Stop 03/16/18 at 18:03; Status DC Lidocaine HCl (Xylocaine-Mpf 1% 2ml Vial) 2 ml 1X PRN PRN ID IV START; Start 03/16/18 at 11:30; Stop 03/16/18 at 18:05; Status DC Active Scripts Active Gabapentin 300 Mg Capsule 300 Mg PO TID Zofran Odt (Ondansetron) 4 Mg Tab.rapdis 1 Tab SL Q8HRS Fioricet 50-300-40 Mg Capsule (Butalb/Acetaminophen/Caffeine) 1 Each Capsule 1 Each PO Q6HRS PRN Reported Lantus Solostar (Insulin Glargine,Hum.rec.anlog) 100 Unit/1 Ml Insuln.pen 10 Unit SQ QHS Levocetirizine Dihydrochloride 5 Mg Tablet 5 Mg Loratadine 10 Mg Tablet 10 Prozac (Fluoxetine Hcl) 20 Mg Capsule 1 Cap PO DAILYWBKFT Atorvastatin Calcium 40 Mg Tablet PO DAILY Januvia (Sitagliptin Phosphate) 100 Mg Tablet 100 PO DAILY Montelukast Sodium Tablet (Montelukast Sodium) 10 Mg Tablet 10 PO DAILY Metformin Hcl Er (Metformin Hcl) 500 Mg Tab.er.24h 500 PO DAILY Vitals/I & O Vital Sign - Last 24 Hours 03/16/18 03/16/18 03/16/18 03/16/18 11:00 12:49 14:05 14:20 Temp 97.9 97.8 97.3 97.3 97.9 97.8 97.3 97.3 Pulse 60 60 54 55 Resp 18 20 18 18 B/P (MAP) 140/80 (100) 106/80 113/69 Pulse Ox 99 96 98 96 O2 Delivery Room Air Room Air O2 Flow Rate 2.0 03/16/18 03/16/18 03/16/18 03/16/18 14:33 19:19 20:00 23:39 Temp 97.3 97.7 97.6 97.3 97.7 97.6 Pulse 56 71 66 Resp 18 16 18 B/P (MAP) 117/74 128/76 (93) 139/78 (98) Pulse Ox 99 98 98 O2 Delivery Room Air Room Air Room Air Room Air Nasal Cannula 03/17/18 03/17/18 03:07 07:29 Temp 97.7 97.5 97.7 97.5 Pulse 63 58 Resp 16 17 B/P (MAP) 141/77 (98) 132/75 (94) Pulse Ox 95 98 O2 Delivery Room Air Room Air Intake and Output 03/16/18 03/16/18 03/17/18 15:00 23:00 07:00 Intake Total 800 ml 500 ml 1100 ml Balance 800 ml 500 ml 1100 ml YVES RIDDLE MD Mar 17, 2018 08:12
[2018-03-17] MEDS: metFORMIN XR 500 MG TAB.ER.24H PO SCH (08:28)
[2018-03-17] MEDS: FERROUS SULFATE 325 MG TABLET. PO SCH (08:28)
[2018-03-17] MEDS: FAMOTIDINE 20 MG TABLET. PO SCH (08:28)
[2018-03-17] MEDS: GABAPENTIN 300 MG CAPSULE. PO SCH ×2 (08:28→14:00)
[2018-03-17] MEDS: FLUoxetine HCL 20 MG CAPSULE PO SCH (08:28)
[2018-03-17] MEDS: LINAGLIPTIN 5 MG TABLET PO SCH (08:28)
[2018-03-17] MEDS: CYANOCOBALAMIN (VITAMIN B-12) 1,000 MCG/ML VIAL IM SCH (08:29)
[2018-03-17] MEDS: INSULIN LISPRO 300 UNITS/3 ML INSULN.PEN. SQ SCH ×2 (08:44→12:00)
--- NOTE | 2018-03-17 08:59 | PDOC ---
PROGRESS NOTES Subjective Subjective HPI- f/u of Anemia ROS - no bleed Objective Objective Vital Signs Date Time Temp Pulse Resp B/P (MAP) Pulse Ox O2 Delivery O2 Flow Rate FiO2 03/17/18 07:29 97.5 58 17 132/75 (94) 98 Room Air 97.5 03/16/18 14:20 2.0 Intake and Output 03/17/18 07:00 Intake Total 2400 ml Balance 2400 ml Intake Oral 900 ml IV Total 1500 ml # Voids 8 Physical Exam Heart: Normal S1, Normal S2 General: Alert, Oriented X3 Lungs: Clear to auscultation Neuro: Normal speech Psych/Mental Status: Mental status NL Assessment Assessment Problems Medical Problems: (1) Dyspnea Status: Acute (2) Generalized weakness Status: Acute (3) Low hemoglobin and low hematocrit Status: Acute IMPRESSION AND PLAN: 1. Hypochromic microcytic anemia secondary to iron deficiency. He has history of heavy alcohol use in the past. Hence, he would need GI consultation for EGD and colonoscopy to evaluate for any occult bleeding. s/p Venofer 500 mg IV on 03/13/2018 and also started him on oral iron supplementation. Hb 8.3. EGD/Colonoscopy 03/16/18: esophageal varices grade 2 non-erosive gastritis internal hemorrhoids rectal polyp s/p polypectomy GI Imp Anemia- most likely multifactorial with alcohol abuse/cirrhosis contributing 2. B12 deficiency. His B12 level is only 204 on 03/12/2018. Started vitamin B12 1000 mg IM daily 03/14/18. 3. Thrombocytopenia. I reviewed old records. The patient has had thrombocytopenia at least since 01/24/2016 when the platelet count was 53. Hence, I suspect that this is due to cirrhosis of the liver, portal hypertension and splenomegaly. s/p bone marrow biopsy 03/14/18 to make sure there are no underlying primary bone marrow disorders. Plt now at 79. 4. Leukopenia, chronic since 01/24/2016 when the WBC count was 2.6. Plan workup as above. WBC now 2.7. 5. Mild splenomegaly, suspected cirrhosis, GI following. f/u with me in 2 weeks for bone marrow results. Comment Review of Relevant I have reviewed the following items ana (where applicable) has been applied. Labs Laboratory Tests Test 03/15/18 12:12 03/15/18 17:32 03/15/18 21:36 03/16/18 03:30 Glucose (Fingerstick) 120 mg/dL (70-99) 179 mg/dL (70-99) 95 mg/dL (70-99) White Blood Count 3.6 x10^3/uL (4.0-11.0) Red Blood Count 3.33 x10^6/uL (4.30-5.70) Hemoglobin 8.1 g/dL (13.0-17.5) Hematocrit 24.9 % (39.0-53.0) Mean Corpuscular Volume 75 fL (79-100) Mean Corpuscular Hemoglobin 24 pg (25-35) Mean Corpuscular Hemoglobin Concent 33 g/dL (31-37) Red Cell Distribution Width 25.9 % (11.5-14.5) Platelet Count 80 x10^3/uL (140-400) Neutrophils (%) (Auto) 70 % (31-73) Lymphocytes (%) (Auto) 20 % (24-48) Monocytes (%) (Auto) 7 % (0-9) Eosinophils (%) (Auto) 2 % (0-3) Basophils (%) (Auto) 1 % (0-3) Neutrophils # (Auto) 2.5 x10^3uL (1.8-7.7) Lymphocytes # (Auto) 0.7 x10^3/uL (1.0-4.8) Monocytes # (Auto) 0.3 x10^3/uL (0.0-1.1) Eosinophils # (Auto) 0.1 x10^3/uL (0.0-0.7) Basophils # (Auto) 0.0 x10^3/uL (0.0-0.2) Sodium Level 135 mmol/L (136-145) Potassium Level 3.9 mmol/L (3.5-5.1) Chloride Level 102 mmol/L (98-107) Carbon Dioxide Level 27 mmol/L (21-32) Anion Gap 6 (6-14) Blood Urea Nitrogen 5 mg/dL (8-26) Creatinine 0.8 mg/dL (0.7-1.3) Estimated GFR (Cockcroft-Gault) 103.2 BUN/Creatinine Ratio 6 (6-20) Glucose Level 94 mg/dL (70-99) Calcium Level 9.0 mg/dL (8.5-10.1) Total Bilirubin 1.0 mg/dL (0.2-1.0) Aspartate Amino Transf (AST/SGOT) 18 U/L (15-37) Alanine Aminotransferase (ALT/SGPT) 23 U/L (16-63) Alkaline Phosphatase 77 U/L (46-116) Total Protein 6.2 g/dL (6.4-8.2) Albumin 3.2 g/dL (3.4-5.0) Albumin/Globulin Ratio 1.1 (1.0-1.7) Test 03/16/18 07:26 03/16/18 12:13 03/16/18 17:08 03/16/18 20:23 Glucose (Fingerstick) 93 mg/dL (70-99) 93 mg/dL (70-99) 166 mg/dL (70-99) 204 mg/dL (70-99) Test 03/17/18 04:34 03/17/18 07:25 White Blood Count 2.7 x10^3/uL (4.0-11.0) Red Blood Count 3.36 x10^6/uL (4.30-5.70) Hemoglobin 8.3 g/dL (13.0-17.5) Hematocrit 25.5 % (39.0-53.0) Mean Corpuscular Volume 76 fL (79-100) Mean Corpuscular Hemoglobin 25 pg (25-35) Mean Corpuscular Hemoglobin Concent 33 g/dL (31-37) Red Cell Distribution Width 26.5 % (11.5-14.5) Platelet Count 79 x10^3/uL (140-400) Neutrophils (%) (Auto) 63 % (31-73) Lymphocytes (%) (Auto) 24 % (24-48) Monocytes (%) (Auto) 9 % (0-9) Eosinophils (%) (Auto) 2 % (0-3) Basophils (%) (Auto) 2 % (0-3) Neutrophils # (Auto) 1.7 x10^3uL (1.8-7.7) Lymphocytes # (Auto) 0.6 x10^3/uL (1.0-4.8) Monocytes # (Auto) 0.2 x10^3/uL (0.0-1.1) Eosinophils # (Auto) 0.1 x10^3/uL (0.0-0.7) Basophils # (Auto) 0.0 x10^3/uL (0.0-0.2) Sodium Level 135 mmol/L (136-145) Potassium Level 4.2 mmol/L (3.5-5.1) Chloride Level 101 mmol/L (98-107) Carbon Dioxide Level 28 mmol/L (21-32) Anion Gap 6 (6-14) Blood Urea Nitrogen 8 mg/dL (8-26) Creatinine 0.8 mg/dL (0.7-1.3) Estimated GFR (Cockcroft-Gault) 103.2 BUN/Creatinine Ratio 10 (6-20) Glucose Level 134 mg/dL (70-99) Calcium Level 8.9 mg/dL (8.5-10.1) Total Bilirubin 0.6 mg/dL (0.2-1.0) Aspartate Amino Transf (AST/SGOT) 20 U/L (15-37) Alanine Aminotransferase (ALT/SGPT) 23 U/L (16-63) Alkaline Phosphatase 79 U/L (46-116) Total Protein 6.2 g/dL (6.4-8.2) Albumin 3.1 g/dL (3.4-5.0) Albumin/Globulin Ratio 1.0 (1.0-1.7) Glucose (Fingerstick) 158 mg/dL (70-99) Laboratory Tests Test 03/16/18 12:13 03/16/18 17:08 03/16/18 20:23 03/17/18 04:34 Glucose (Fingerstick) 93 mg/dL (70-99) 166 mg/dL (70-99) 204 mg/dL (70-99) White Blood Count 2.7 x10^3/uL (4.0-11.0) Red Blood Count 3.36 x10^6/uL (4.30-5.70) Hemoglobin 8.3 g/dL (13.0-17.5) Hematocrit 25.5 % (39.0-53.0) Mean Corpuscular Volume 76 fL (79-100) Mean Corpuscular Hemoglobin 25 pg (25-35) Mean Corpuscular Hemoglobin Concent 33 g/dL (31-37) Red Cell Distribution Width 26.5 % (11.5-14.5) Platelet Count 79 x10^3/uL (140-400) Neutrophils (%) (Auto) 63 % (31-73) Lymphocytes (%) (Auto) 24 % (24-48) Monocytes (%) (Auto) 9 % (0-9) Eosinophils (%) (Auto) 2 % (0-3) Basophils (%) (Auto) 2 % (0-3) Neutrophils # (Auto) 1.7 x10^3uL (1.8-7.7) Lymphocytes # (Auto) 0.6 x10^3/uL (1.0-4.8) Monocytes # (Auto) 0.2 x10^3/uL (0.0-1.1) Eosinophils # (Auto) 0.1 x10^3/uL (0.0-0.7) Basophils # (Auto) 0.0 x10^3/uL (0.0-0.2) Sodium Level 135 mmol/L (136-145) Potassium Level 4.2 mmol/L (3.5-5.1) Chloride Level 101 mmol/L (98-107) Carbon Dioxide Level 28 mmol/L (21-32) Anion Gap 6 (6-14) Blood Urea Nitrogen 8 mg/dL (8-26) Creatinine 0.8 mg/dL (0.7-1.3) Estimated GFR (Cockcroft-Gault) 103.2 BUN/Creatinine Ratio 10 (6-20) Glucose Level 134 mg/dL (70-99) Calcium Level 8.9 mg/dL (8.5-10.1) Total Bilirubin 0.6 mg/dL (0.2-1.0) Aspartate Amino Transf (AST/SGOT) 20 U/L (15-37) Alanine Aminotransferase (ALT/SGPT) 23 U/L (16-63) Alkaline Phosphatase 79 U/L (46-116) Total Protein 6.2 g/dL (6.4-8.2) Albumin 3.1 g/dL (3.4-5.0) Albumin/Globulin Ratio 1.0 (1.0-1.7) Test 03/17/18 07:25 Glucose (Fingerstick) 158 mg/dL (70-99) Medications Current Medications Sodium Chloride 500 ml @ 500 mls/hr 1X ONCE IV Last administered on at 18:46; Start 03/11/18 at 18:00; Stop 03/11/18 at 18:59; Status DC Iohexol (Omnipaque 300 Mg/ml) 75 ml 1X ONCE IV ; Start 03/11/18 at 19:00; Stop 03/11/18 at 19:01; Status DC Info (CONTRAST GIVEN -- Rx MONITORING) 1 each PRN DAILY PRN MC SEE COMMENTS; Start 03/11/18 at 19:00; Stop 03/13/18 at 18:59; Status DC Insulin Human Lispro (HumaLOG) 0-5 UNITS TIDWMEALS SQ Last administered on 03/17at 08:44; Start 03/12/18 at 08:00 Dextrose (Dextrose 50%-Water Syringe) 12.5 gm PRN Q15MIN PRN IV SEE COMMENTS; Start 03/11/18 at 19:45 Insulin Glargine (Lantus) 5 units QHS SQ ; Start 03/11/18 at 21:00; Stop at 15:46; Status DC Sodium Chloride 1,000 ml @ 75 mls/hr [id number] IV Last administered on at 04:01; Start 03/11/18 at 19:45 Atorvastatin Calcium (Lipitor) 40 mg HS PO Last administered on 03/16/18at 21:07 ; Start 03/11/18 at 21:00 Fluoxetine HCl (PROzac) 20 mg HS PO Last administered on 03/12/18at 20:58; Start 03/11/18 at 21:00; Stop 03/13/18 at 14:10; Status DC Ondansetron HCl (Zofran Odt) 4 mg PRN Q8HRS PRN PO NAUSEA; Start 03/11/18 at 20 :00 Acetaminophen/ Butalbital/ Caffeine (Fioricet) 1 tab PRN Q6HRS PRN PO MIGRAINE HEADACHE; Start 03/11/18 at 20:00 Gabapentin (Neurontin) 300 mg TID PO Last administered on 03/17/18at 08:28; Start 03/11/18 at 21:00 Montelukast Sodium (Singulair) 10 mg QHS PO Last administered on 03/16/18at 21: 07; Start 03/11/18 at 21:00 Linagliptin (Tradjenta) 5 mg DAILY PO Last administered on 03/17/18 08:28; Start 03/12/18 at 09:00 Fluoxetine HCl (PROzac) 20 mg DAILYWBKFT PO Last administered on 03/17/18at 08: 28; Start 03/12/18 at 08:00 Insulin Glargine (Lantus) 10 units QHS SQ Last administered on 03/16/18 21:15 ; Start 03/12/18 at 21:00 Metformin HCl (Glucophage Xr) 500 mg DAILYWBKFT PO Last administered on 08:28; Start 03/14/18 at 08:00 Lactic Acid (Lac-Hydrin) 1 reddy PRN BID PRN TP ITCHING Last administered on 03/15at 21:41; Start 03/12/18 at 22:00 Iron Sucrose 500 mg/Sodium Chloride 275 ml @ 78.571 mls/ hr 1X ONCE IV Last administered on 03/13/18at 15:09; Start 03/13/18 at 14:30; Stop 03/13/18 at 17:59 ; Status DC Ferrous Sulfate (Feosol) 325 mg DAILYWBKFT PO Last administered on 03/17/18 08 :28; Start 03/14/18 at 08:00 Cyanocobalamin (Vitamin B-12) 1,000 mcg DAILY16 IM Last administered on 17:06; Start 03/13/18 at 16:00; Stop 03/14/18 at 14:04; Status DC Cyanocobalamin (Vitamin B-12) 1,000 mcg DAILY IM Last administered on at 08:29; Start 03/14/18 at 09:00; Stop 03/20/18 at 08:59 Midazolam HCl (Versed) 2 mg STK-MED ONCE .ROUTE ; Start 03/14/18 at 08:55; Stop 03/14/18 at 08:56; Status DC Fentanyl Citrate (Fentanyl 2ml Vial) 100 mcg STK-MED ONCE .ROUTE ; Start at 08:55; Stop 03/14/18 at 08:56; Status DC Flumazenil (Romazicon) 0.5 mg STK-MED ONCE IV ; Start 03/14/18 at 08:55; Stop 03/14/18 at 08:56; Status DC Naloxone HCl (Narcan) 0.4 mg STK-MED ONCE .ROUTE ; Start 03/14/18 at 08:55; Stop 03/14/18 at 08:56; Status DC Lidocaine/Sodium Bicarbonate (Buffered Lidocaine 1%) 3 ml 1X ONCE IJ Last administered on 03/14/18at 09:15; Start 03/14/18 at 09:15; Stop 03/14/18 at 09:16 ; Status DC Midazolam HCl (Versed) 2 mg 1X ONCE IV Last administered on 03/14/18at 09:15; Start 03/14/18 at 09:15; Stop 03/14/18 at 09:16; Status DC Fentanyl Citrate (Fentanyl 2ml Vial) 100 mcg 1X ONCE IV Last administered on 03/14/18at 09:15; Start 03/14/18 at 09:15; Stop 03/14/18 at 09:16; Status DC Polyethylene Glycol (miraLAX Powder BULK BOTTLE) 238 gm 1X ONCE PO Last administered on 03/15/18at 13:00; Start 03/15/18 at 13:00; Stop 03/15/18 at 13:01 ; Status DC Magnesium Citrate (Citroma) 296 ml 1X ONCE PO Last administered on 03/15/18at 13:11; Start 03/15/18 at 12:00; Stop 03/15/18 at 12:01; Status DC Bisacodyl (Dulcolax Tab) 10 mg PRN DAILY PRN PO CONSTIPATION; Start 03/15/18 at 12:00 Famotidine (Pepcid) 20 mg BID PO Last administered on 03/17/18at 08:28; Start 03/15/18 at 15:00 Hydromorphone HCl (Dilaudid) 0.5 mg PRN Q10MIN PRN IV SEV PAIN, Second choice; Start 03/16/18 at 07:00; Stop 03/16/18 at 18:05; Status DC Lidocaine HCl (Xylocaine-Mpf 1% 2ml Vial) 2 ml PRN 1X PRN ID IV START; Start 03/16/18 at 07:00; Stop 03/16/18 at 18:05; Status DC Ringer's Solution 1,000 ml @ 30 mls/hr Q24H IV Last administered on 03/16/18at 12:59; Start 03/16/18 at 07:00; Stop 03/16/18 at 18:03; Status DC Morphine Sulfate (Morphine Sulfate) 1 mg PRN Q10MIN PRN IV SEVERE PAIN; Start 03/16/18 at 07:00; Stop 03/16/18 at 18:05; Status DC Fentanyl Citrate (Fentanyl 2ml Vial) 50 mcg PRN Q5MIN PRN IV MODERATE TO SEVERE PAIN; Start 03/16/18 at 07:00; Stop 03/16/18 at 18:05; Status DC Fentanyl Citrate (Fentanyl 2ml Vial) 25 mcg PRN Q5MIN PRN IV MILD PAIN; Start 03/16/18 at 07:00; Stop 03/16/18 at 18:05; Status DC Ondansetron HCl (Zofran) 4 mg PRN Q6HRS PRN IV NAUSEA/VOMITING; Start 03/16/18 at 07:00; Stop 03/16/18 at 18:05; Status DC Midazolam HCl (Versed) 2 mg PRN 1X PRN IV PRIOR TO PROCEDURE; Start 03/16/18 at 11:30; Stop 03/16/18 at 18:05; Status DC Fentanyl Citrate (Fentanyl 2ml Vial) 25 mcg PRN Q5MIN PRN IV X 2 DOSES FOR PAIN ; Start 03/16/18 at 11:30; Stop 03/16/18 at 18:05; Status DC Fentanyl Citrate (Fentanyl 2ml Vial) 50 mcg PRN Q5MIN PRN IV X 2 DOSES FOR PAIN ; Start 03/16/18 at 11:30; Stop 03/16/18 at 18:05; Status DC Ringer's Solution 1,000 ml @ 125 mls/hr Q8H IV Last administered on 03/16/18at 12:45; Start 03/16/18 at 11:26; Stop 03/16/18 at 18:03; Status DC Lidocaine HCl (Xylocaine-Mpf 1% 2ml Vial) 2 ml 1X PRN PRN ID IV START; Start 03/16/18 at 11:30; Stop 03/16/18 at 18:05; Status DC Active Scripts Active Gabapentin 300 Mg Capsule 300 Mg PO TID Zofran Odt (Ondansetron) 4 Mg Tab.rapdis 1 Tab SL Q8HRS Fioricet 50-300-40 Mg Capsule (Butalb/Acetaminophen/Caffeine) 1 Each Capsule 1 Each PO Q6HRS PRN Reported Lantus Solostar (Insulin Glargine,Hum.rec.anlog) 100 Unit/1 Ml Insuln.pen 10 Unit SQ QHS Levocetirizine Dihydrochloride 5 Mg Tablet 5 Mg Loratadine 10 Mg Tablet 10 Prozac (Fluoxetine Hcl) 20 Mg Capsule 1 Cap PO DAILYWBKFT Atorvastatin Calcium 40 Mg Tablet PO DAILY Januvia (Sitagliptin Phosphate) 100 Mg Tablet 100 PO DAILY Montelukast Sodium Tablet (Montelukast Sodium) 10 Mg Tablet 10 PO DAILY Metformin Hcl Er (Metformin Hcl) 500 Mg Tab.er.24h 500 PO DAILY Vitals/I & O Vital Sign - Last 24 Hours 03/16/18 03/16/18 03/16/18 03/16/18 11:00 12:49 14:05 14:20 Temp 97.9 97.8 97.3 97.3 97.9 97.8 97.3 97.3 Pulse 60 60 54 55 Resp 18 20 18 18 B/P (MAP) 140/80 (100) 106/80 113/69 Pulse Ox 99 96 98 96 O2 Delivery Room Air Room Air O2 Flow Rate 2.0 03/16/18 03/16/18 03/16/18 03/16/18 14:33 19:19 20:00 23:39 Temp 97.3 97.7 97.6 97.3 97.7 97.6 Pulse 56 71 66 Resp 18 16 18 B/P (MAP) 117/74 128/76 (93) 139/78 (98) Pulse Ox 99 98 98 O2 Delivery Room Air Room Air Room Air Room Air Nasal Cannula 03/17/18 03/17/18 03:07 07:29 Temp 97.7 97.5 97.7 97.5 Pulse 63 58 Resp 16 17 B/P (MAP) 141/77 (98) 132/75 (94) Pulse Ox 95 98 O2 Delivery Room Air Room Air Intake and Output 03/16/18 03/16/18 03/17/18 15:00 23:00 07:00 Intake Total 800 ml 500 ml 1100 ml Balance 800 ml 500 ml 1100 ml DANIEL PADILLA MD Mar 17, 2018 08:59
--- NOTE | 2018-03-17 11:05 | PDOC ---
Subjective: Subjective: "I'm just blowing my nose." Says he might go home today but can't remember phone numbers for his family. Objective: Vital Signs: Vital Signs Date Time Temp Pulse Resp B/P (MAP) Pulse Ox O2 Delivery O2 Flow Rate FiO2 03/17/18 08:00 Room Air 03/17/18 07:29 97.5 58 17 132/75 (94) 98 97.5 03/16/18 14:20 2.0 Labs: Laboratory Tests Test 03/16/18 12:13 03/16/18 17:08 03/16/18 20:23 03/17/18 04:34 Glucose (Fingerstick) 93 mg/dL 166 mg/dL 204 mg/dL White Blood Count 2.7 x10^3/uL Red Blood Count 3.36 x10^6/uL Hemoglobin 8.3 g/dL Hematocrit 25.5 % Mean Corpuscular Volume 76 fL Mean Corpuscular Hemoglobin 25 pg Mean Corpuscular Hemoglobin Concent 33 g/dL Red Cell Distribution Width 26.5 % Platelet Count 79 x10^3/uL Neutrophils (%) (Auto) 63 % Lymphocytes (%) (Auto) 24 % Monocytes (%) (Auto) 9 % Eosinophils (%) (Auto) 2 % Basophils (%) (Auto) 2 % Neutrophils # (Auto) 1.7 x10^3uL Lymphocytes # (Auto) 0.6 x10^3/uL Monocytes # (Auto) 0.2 x10^3/uL Eosinophils # (Auto) 0.1 x10^3/uL Basophils # (Auto) 0.0 x10^3/uL Sodium Level 135 mmol/L Potassium Level 4.2 mmol/L Chloride Level 101 mmol/L Carbon Dioxide Level 28 mmol/L Anion Gap 6 Blood Urea Nitrogen 8 mg/dL Creatinine 0.8 mg/dL Estimated GFR (Cockcroft-Gault) 103.2 BUN/Creatinine Ratio 10 Glucose Level 134 mg/dL Calcium Level 8.9 mg/dL Total Bilirubin 0.6 mg/dL Aspartate Amino Transf (AST/SGOT) 20 U/L Alanine Aminotransferase (ALT/SGPT) 23 U/L Alkaline Phosphatase 79 U/L Total Protein 6.2 g/dL Albumin 3.1 g/dL Albumin/Globulin Ratio 1.0 Test 03/17/18 07:25 Glucose (Fingerstick) 158 mg/dL Diagnosis: Bone marrow aspirate, biopsy, cell clot and peripheral blood: - Peripheral blood with pancytopenia including severe microcytic anemia, mild-to -moderate leukopenia and moderate thrombocytopenia. - Mildly hypercellular bone marrow with trilineage hematopoiesis, erythroid hyperplasia, mild dyspoiesis and no evidence of lymphoma, acute leukemia or plasma cell dyscrasia. (see comment) Comment: Overall, the bone marrow is mildly hypercellular for the patient's age with trilineage hematopoiesis, erythroid hyperplasia, mild dyspoiesis, and no evidence of lymphoma, acute leukemia or plasma cell dyscrasia. The dyspoiesis is mild and does not meet the morphologic criteria for myelodysplasia. Correlation with clinical history, additional laboratory data and cytogenetics is recommended. Imaging: EGD/colonoscopy esophageal varices grade 2 non-erosive gastritis internal hemorrhoids rectal polyp s/p polypectomy PE: GEN: NAD LUNGS: CTAB HEART: RRR ABD: soft, non-tender SKIN: pale NEURO/PSYCH: A & O 3 A/P: Pancytopenia - bone marrow biopsy as above, on iron and B12 H/o heavy alcohol use (now sober) - probable cirrhosis on CT, grade 2 esophageal varices on EGD - MELD 10 -- Discussed esophageal varices. AFP pending - follow-up re: this and polyp pathology. DC per primary, continue abstinence from alcohol. ANGUS NAVARRO Mar 17, 2018 11:05
[2018-03-17 11:16] VITALS: BP 137/78
[2018-03-17] MEDS ORDERED: FAMO20TA5 PO (13:59)
[2018-03-17] MEDS ORDERED: FERR325T72 PO (13:59)
--- NOTE | 2018-03-17 14:10 | PATHOLOGY ---
[facility] Accession Number: [id number] . 01 Material submitted: . RECTAL POLYP BIOPSY . 01 Clinical history: . Pre-OP DX: Anemia Post-OP DX: Polyp . 02 Diagnosis: Colorectal biopsy, rectal polyp: - Hyperplastic polyp with coagulation artifact. . ([facility]:mm; 03/17/18) [facility]/03/17/2018 . 02 Comment: There are no adenomatous changes or evidence of malignancy. . ([facility]:mml; 03/17/18) . 02 Electronically signed: . Omar Lucas MD, Pathologist NPI- [id number] . 01 Gross description: . Received in formalin labeled "Boris, Dylon, rectal polyp BX," are 2 segments of thomas soft tissue measuring 0.7 x 0.2 x 0.3 cm in aggregate dimensions and ranging from 0.3 to 0.4 cm in maximum dimension. The specimen is submitted entirely in cassette A1. ([facility]; 03/16/2018) TOB/TOB . 02 Pathologist provided ICD-10: K62.1 . 02 CPT . 306057 Specimen Comment: A courtesy copy of this report has been sent to Specimen Comment: [phone], . Specimen Comment: Report sent to / DR LIU Specimen Comment: A duplicate report has been generated due to demographic updates. Performed at: 01 [facility] [address] [id number] MD Jonathan Black MD Phone: [phone] Performed at: 02 [facility] [address], [place] [id number] MD Omar Lucas MD Phone: [phone]
[2018-03-17 14:48] VITALS: BP 144/78
--- NOTE | 2018-03-24 07:19 | PDOC3 ---
Discharge Summary Visit Information Date of Admission: Mar 11, 2018 Date of Discharge: Mar 17, 2018 Admitting Diagnosis: Acute blood loss anemia Final Diagnosis Problems Medical Problems: (1) Dyspnea Status: Acute (2) Generalized weakness Status: Acute (3) Low hemoglobin and low hematocrit Status: Acute Brief Hospital Course Allergies Allergies Coded Allergies Type Severity Reaction Last Updated Verified prochlorperazine Allergy Intermediate 03/16/18 Yes Brief Hospital Course 47-year-old male presents to ER for complaints of generalized weakness and fatigue. Found with Hb 5.7 and low WBC and platelets, s/p transfusion Hb came to 7.7. Patient states he is diabetic but does not check his blood sugars and uses both insulin and takes pills. he used to drink heavy but state since diagnosed with diabetes last year has not been drinking at all, he is poor historian but denies being told he has liver problem in the past. on further review today notes he takes up to 14 medications at night and we have not been giving him all his medications. he does not recall the names, have reconciled with pharmacy , now notes he was seeing a psychiatrist in [place], but did not like the [address]. He was still very fatigued throughout the [facility], sleeping most of the day, but was able to work with therapy, has a little more energy now, able to care for himself at home with the help of his [id number] Patient reports history of anxiety taking daily prescribed medications with previous SI denying any suicidal ideations at this time reporting his medications have improved his anxiety. Problems in hospital as below: 1- Pancytopenia , etiology not clear possibly sequestration/ bone marrow/MDS. GI and heme consult - s/p BM bx as this persists, result pending. Not due to medication. His prior ETOH use and likely underlying cirrhosis appear to be the etiology, however he also has concomitant iron and b12 deficiencies which are now being replaced. Bone marrow reveals no MDS or other hematologic malignancy -Follow up with Hematology 2 - Acute severe anemia - s/p colonoscopy and EGD today with GI - hyperplastic polyp x1, no upper GI -Repeat Colonoscopy in 3 years for hyperplastic polyp 3- abnormal liver and possibility of liver cirrhosis he claims does not drink ETOH since diagnosed with DM, check hep profile and liver sono - negative, though with fatty liver 4-DM II - will cont sliding scale for elevated BG 5-Anxiety and depression - on SSRI, by his history he may be on a mood stabilizer as well, which could account for his pancytopenia 6-HLD/HTN - will cont to treat in house, needs close BP monitoring 7-Autism/Asberger's - flat affect. Will have psych to see and social work as his [id number] is concerned she had to pay his rent in order to prevent his eviction yesterday. Discharge Information Condition at Discharge: Stable Follow Up: Weeks (4) Disposition/Orders: D/C to Home Scheduled Atorvastatin Calcium (Atorvastatin Calcium) 40 Mg Tablet, PO DAILY, #30 ( Reported) Entered as Reported by: Casandra Berry on 08/23/16356 Last Action: Continued on 03/11/181949 by ANTHONY WOOD Famotidine (Famotidine) 20 Mg Tablet, 20 MG PO BID for 30 Days, #60 Ref 2 Prescribed by: YVES RIDDLE MD on 03/17/18 1359 Ferrous Sulfate (Feosol) 325 Mg Tablet, 325 MG PO DAILYWBKFT for 30 Days, #30 Ref 2 Prescribed by: YVES RIDDLE MD on 03/17/18 1359 Fluoxetine Hcl (Prozac) 20 Mg Capsule, 1 CAP PO DAILYWBKFT, #30 Ref 1 (Reported) Entered as Reported by: ROSEMARY ELDRIDGE on 08/23/16 1431 Last Action: Continued on 03/11/181949 by ANTHONY WOOD Gabapentin (Gabapentin) 300 Mg Capsule, 300 MG PO TID, #90 Ref 0 Prescribed by: ALESSANDRO RUFF MD on 07/10/16 1822 Last Action: Converted on 03/11/181949 by ANTHONY WOOD Insulin Glargine,Hum.rec.anlog (Lantus Solostar) 100 Unit/1 Ml Insuln.pen, 10 UNIT SQ QHS, #15 Ref 3 (Reported) Entered as Reported by: ANTHONY WOOD on 03/11/181926 Last Action: Continued on 03/12/181544 by NEETA HOGUE Metformin Hcl (Metformin Hcl Er) 500 Mg Tab.er.24h, 500 PO DAILY, #120 (Reported ) Entered as Reported by: Casandra Berry on 08/23/16356 Last Action: Converted on 03/12/181544 by NEETA HOGUE Montelukast Sodium (Montelukast Sodium Tablet) 10 Mg Tablet, 10 PO DAILY, #30 ( Reported) Entered as Reported by: Casandra Berry on 08/23/16356 Last Action: Converted on 03/11/181949 by ANTHONY WOOD Ondansetron (Zofran Odt) 4 Mg Tab.rapdis, 1 TAB SL Q8HRS for nausea and vomiting , #10 Prescribed by: FABIÁN CRISTOBAL on 01/24/161816 Last Action: Continued on 03/11/181949 by ANTHONY WOOD Sitagliptin Phosphate (Januvia) 100 Mg Tablet, 100 PO DAILY, #30 (Reported) Entered as Reported by: Casandra Berry on 08/23/16356 Last Action: Converted on 03/11/181949 by ANTHONY WOOD Scheduled PRN Butalb/Acetaminophen/Caffeine (Fioricet 50-300-40 Mg Capsule) 1 Each Capsule, 1 EACH PO Q6HRS PRN for MIGRAINE HEADACHE, #20 Prescribed by: FABIÁN CRISTOBAL on 01/24/161816 Last Action: Converted on 03/11/181949 by ANTHONY WOOD Miscellaneous Medications Levocetirizine Dihydrochloride (Levocetirizine Dihydrochloride) 5 Mg Tablet, 5 MG, (Reported) Entered as Reported by: ANTHONY WOOD on 03/11/181926 Last Action: HELD on 03/12/181544 by NEETA HOGUE Loratadine (Loratadine) 10 Mg Tablet, 10, (Reported) Entered as Reported by: ANTHONY WOOD on 03/11/181926 Last Action: HELD on 03/12/181544 by YVES ROJO MD Mar 24, 2018 07:19
== END 2018-03-17 16:10 | disposition home or self-care (01) | DRG 809 ==
LOC: ER 14:02 → 6 SOUTH 17:04
PROVIDERS: ADMIT Hospitalist; ATTEND Hospitalist
PROC: 30233N1 Transfusion of Nonautologous Red Blood Cells into Peripheral Vein, Percutaneous Approach (ICD-10-PCS; 2018-03-11)
PROC: 07DR3ZX Extraction of Iliac Bone Marrow, Percutaneous Approach, Diagnostic (ICD-10-PCS; 2018-03-14)
PROC: 0DJ08ZZ Inspection of Upper Intestinal Tract, Via Natural or Artificial Opening Endoscopic (ICD-10-PCS; principal; 2018-03-16 14:00)
PROC: 0DBP8ZX Excision of Rectum, Via Natural or Artificial Opening Endoscopic, Diagnostic (ICD-10-PCS; 2018-03-16 14:00)
DX: D61.818 Other pancytopenia (principal); F84.5 Asperger's syndrome; I85.00 Esophageal varices without bleeding; I10 Essential (primary) hypertension; F41.9 Anxiety disorder, unspecified; F32.9 Major depressive disorder, single episode, unspecified; E78.00 Pure hypercholesterolemia, unspecified; E11.42 Type 2 diabetes mellitus with diabetic polyneuropathy; E78.5 Hyperlipidemia, unspecified; E53.8 Deficiency of other specified B group vitamins; K21.9 Gastro-esophageal reflux disease without esophagitis; K29.70 Gastritis, unspecified, without bleeding; K62.1 Rectal polyp; K64.8 Other hemorrhoids; Z82.0 Family history of epilepsy and other diseases of the nervous system; Z90.49 Acquired absence of other specified parts of digestive tract; Z79.899 Other long term (current) drug therapy; Z88.8 Allergy status to other drugs, medicaments and biological substances; Z82.49 Family history of ischemic heart disease and other diseases of the circulatory system; Z87.891 Personal history of nicotine dependence
CPT/HCPCS: 36415; 38222; 45380; 71045; 74177; 76705; 77012; 80048; 80053; 80329; 82105; 82140; 82274; 82607; 82728; 82962; 83010; 83540; 83550; 83615; 83735; 84484; 85014; 85018; 85025; 85027; 85045; 85610; 85651; 85730; 86850; 86900; 86901; 86920; 88184; 88185; 88237; 88305; 88311; 88313; 88342; 88364; 88365; 93005; 99152; G0480; J1756; J1815; J2250; J3010; J3420; J7030; J7040; J7050; J7120; P9016; 99285-25